=== PATIENT | male | born 1955 | race Caucasian/White ===

== ENCOUNTER 2019-08-19 07:00 | Outpatient (RCR) | payer SELFPAY | END 2020-04-05 14:23 | disposition home or self-care (01) | LOC: ANHCPRIII 07:00 | PROVIDERS: PCP Internal Medicine | DX: I25.10 Atherosclerotic heart disease of native coronary artery without angina pectoris (principal) | CPT/HCPCS: 99199 ==

== ENCOUNTER → 2021-10-23 11:49 | Outpatient (CLI) | payer MEDICARE, SELFPAY ==
--- NOTE | ~2021-10-23 | XR_ITS ---
EXAMINATION:XR_[id number]_CR DATE: 10/23/2021 12:06 INDICATION: Neck pain TECHNIQUE: AP, lateral, lateral swimmers and odontoid views of the cervical spine are provided. COMPARISON: None FINDINGS: There are 2 mm of retrolisthesis of C3 on C4. Vertebral body alignment is otherwise normal. The odontoid is intact. No fracture is identified. There is severe loss of intervertebral disc space height at C5-6 and moderate loss of intervertebral disc space height at C3-4 and C6-7. Small degener ative osteophytes project from the anterior endplates of multiple vertebral bodies. 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 Prevertebral soft tissues are normal. IMPRESSION: 1. Severe cervical spondylosis at C5-6 and mild to moderate spondylosis in the remainder of the cervi kb spine Reviewed, dictated and finalized at location F. IMPRESSION: 1. Severe cervical spondylosis at C5-6 and mild to moderate spondylosis in the remainder of the cervical spine
== END ==
PROVIDERS: PCP Internal Medicine; Visit Provider Nurse Practitioner
DX: M47.892 Other spondylosis, cervical region (principal)
CPT/HCPCS: 72040

== ENCOUNTER → 2021-10-31 16:44 | Outpatient (CLI) | payer MEDICARE, SELFPAY ==
--- NOTE | ~2021-10-31 | MR_ITS ---
EXAMINATION: MR cervical spine wo con DATE: 10/31/2021 17:19 INDICATION: Posterior neck pain. Other specified dorsopathies, cervical region. TECHNIQUE: Magnetic resonance imaging (MRI) of the cervical spine was performed without intravenous c ontrast. Sequences included sagittal T2-weighted FSE, sagittal T2-weighted FS FSE, sagittal T1-weight ed FSE, axial MERGE, and axial T2-weighted FSE. COMPARISON: Cervical spine radiographs 10/23/2021 FINDINGS: There is 2 mm retrolisthesis of C3 on C4 and C5 on C6. There is mild chronic anterior wedgi ng of C3, C5, and C6 vertebral bodies. There is severely decreased disc height at C3-C4, mildly decre ased disc height at C4-C5, and severely decreased disc height at C5-C6 and C6-C7 with endplate remode ling. The spinal cord signal intensity is normal. The following disc levels are specifically discusse d: C2-C3: The disc does not extend beyond the endplate margin. There is mild left uncovertebral joint os teoarthritis. There is severe right and mild left facet joint osteoarthritis. There is mild right noemi ral foraminal stenosis. There is no central canal stenosis. C3-C4: The disc is bulging. Severe bilateral There is no uncovertebral joint osteoarthritis. There is mild bilateral facet joint osteoarthritis. There is moderate bilateral neural foraminal stenosis. Th ere is moderate central canal stenosis with ventral and dorsal indentation of spinal cord. C4-C5: The disc does not extend beyond the endplate margin. There is moderate bilateral uncovertebral joint osteoarthritis. There is mild bilateral facet joint osteoarthritis. There is no neural foramin al stenosis. There is no central canal stenosis. C5-C6: The disc is bulging. There is ankylosis of the uncovertebral joints with severe hypertrophy. T here is no facet joint osteoarthritis. There is moderate bilateral neural foraminal stenosis. There i s moderate central canal stenosis with ventral and dorsal indentation of spinal cord. C6-C7: The disc is bulging. There is moderate right and severe left uncovertebral joint osteoarthriti s. There is mild bilateral facet joint osteoarthritis. There is moderate right and severe left neural foraminal stenosis. There is moderate central canal stenosis with ventral and dorsal indentation of spinal cord. C7-T1: There is a central extrusion. There is no uncovertebral joint osteoarthritis. There is severe right and moderate left facet joint osteoarthritis. There is mild bilateral neural foraminal stenosis . There is mild central canal stenosis. IMPRESSION: 1. Severe cervical spondylosis. Reviewed, dictated and finalized at location A.
== END ==
PROVIDERS: PCP Internal Medicine; Visit Provider Internal Medicine
DX: M53.82 Other specified dorsopathies, cervical region (principal); M47.892 Other spondylosis, cervical region
CPT/HCPCS: 72141

== ENCOUNTER → 2023-07-23 10:45 | Outpatient (CLI) | payer MEDICARE, SELFPAY ==
--- NOTE | ~2023-07-23 | XR_ITS ---
Left Knee Technique: AP, lateral, and sunrise views were obtained. Clinical History: Pain Findings: No fracture or dislocation is seen. Osseous alignment is anatomic. Joint spaces are preserv ed without degenerative or erosive change. Soft tissues are unremarkable. No joint effusion is seen. Impression: Unremarkable left knee radiographs. Reviewed, dictated and finalized at location . TH UNIT SUPERVISOR Impression: Unremarkable left knee radiographs.
== END ==
PROVIDERS: PCP Nurse Practitioner Family; Visit Provider Nurse Practitioner Family
DX: M25.562 Pain in left knee (principal)
CPT/HCPCS: 73564

== ENCOUNTER → 2023-08-12 10:58 | Outpatient (CLI) | payer MEDICARE, SELFPAY ==
--- NOTE | ~2023-08-12 | MR_ITS ---
MRI of the left knee Clinical history: Pain Technique: Coronal proton density and proton density-weighted images, sagittal proton-density and T2 fat-sat images, and axial proton-density fat-saturated images were acquired. Findings: Anterior and posterior cruciate ligaments are intact. Medial collateral ligament and the la teral collateral ligament complex are intact. Popliteus tendon is intact. No lateral meniscal tear seen. There is complex tearing of the posterior horn of the medial meniscus extending to the body segment. There is patchy high-grade chondral malacia, especially at the apex, with mild subchondral reactive m arrow edema. There is extensive high-grade chondral malacia the femoral trochlea, with subchondral re active marrow edema at the lateral facet. There is mild chondral thinning in the medial lateral doc rtments. Extensor mechanism is intact. Small to moderate joint effusion present. No Oh's cyst. Impression: Complex tearing of the posterior horn and body of the medial meniscus. Moderate degenerative change of the patellofemoral compartment. Mild degenerative change of the media l and lateral compartments. Small to moderate joint effusion. Reviewed, dictated and finalized at location M. SERVICE TECHNICIAN Impression: Complex tearing of the posterior horn and body of the medial meniscus. Moderate degenerative change of the patellofemoral compartment. Mild degenerati ve change of the medial and lateral compartments. Small to moderate joint effusion.
== END ==
PROVIDERS: PCP Nurse Practitioner Family; Visit Provider Nurse Practitioner Family
DX: S83.232A Complex tear of medial meniscus, current injury, left knee, initial encounter (principal); X58.XXXA Exposure to other specified factors, initial encounter; M17.12 Unilateral primary osteoarthritis, left knee; M25.462 Effusion, left knee
CPT/HCPCS: 73721

== ENCOUNTER 2023-09-22 14:30 | Outpatient (RCR) | payer MEDICARE, SELFPAY ==
--- NOTE | 2023-08-26 17:27 | OPREHPOC ---
Outpatient Therapy Plan of Care This is a Multidisciplinary Plan of Care that may contain components documented by all disciplines (PT, OT, and ST.) PT Problem 1 PT Problem #1 Knowledge Deficit PT Goal 1 Goal Pt to be IND with issued HEP Target Visit 10 PT Problem 2 PT Problem #2 Pain PT Goal 1 Goal Pt to report knee pain no greater than 3/10 in the last week. Target Visit 10 PT Goal 2 Goal Pt to report 75% improvement in overall symptoms. Target Visit 10 PT Problem 3 PT Problem #3 Impaired Gait PT Goal 1 Goal Pt to ambulate without compensations on level ground Target Visit 10 PT Goal 2 Goal Pt to improve 2 min walk distance from 405ft to 450ft Target Visit 10 PT Problem 4 PT Problem #4 Impaired Functional Mobil PT Goal 1 Goal Pt to demonstrate a 20lb lift and carry without compensations Target Visit 10 PT Goal 2 Goal Pt to ambulate stairs with a reciprocal pattern Target Visit 10
--- NOTE | 2023-08-26 17:27 | PTOPEVAL1 ---
Assessment and note entered by Kiran Case, PT, DPT Evaluation Information Assessment Status Evaluation Diagnosis L knee pain Subjective Information Pt reports L knee pain, MRI showing a positive L medial meniscus tear. He states he has had pain since April, he states this is likely from the [employer] class he does. He states his knee initially got better to where he could return to his 30 min walk he is used to doing. He states in June he was doing work in the basement and had to go up/down stairs multiple times and this has reaggrivated it. He states he is very cautious and avoid movements that cause pain. Reported Pain Level Pain Score 1: Self Report Assessment PT Clinical Summary Jose presents to therapy today for his initial evaluation with a diagnosis of L patellofemoral pain and an MRI showing a L knee medial meniscus tear. Today pt demonstrates decreased L quad strength when compared to the R, gait deviations on level surfaces and stairs, L knee joint line tenderness, and overall decreased functional mobility. Skilled therapy services are indicated to address the deficits noted above, to manage pain, to improve stability, and to return to PLOF. Plan of Care Interventions Electrical Stimulation,Gait Training,Hot Pack/Cold Pack,Manual Therapy,Neuro Re-education,Patient/ Caregiver Educati,Therapeutic Activities, Therapeutic Exercise PT Services Indicated Yes Treatment Frequency and 2x/wk for 10 visits Duration These treatments will address the objective and functional deficits as defined above. The patient will be advanced safely and appropriately in order for the patient to progress towards his/her prior level of function. Additional exercises will be introduced and as well as a comprehensive home exercise program upon discharge, if needed, ?to ensure carryover of functional gains achieved in the clinic. This treatment plan has been reviewed and agreement upon by the patient.
--- NOTE | 2023-09-17 13:22 | PCPTNOTE ---
Patient canceled this date due to provider being out with sick child.
--- NOTE | 2023-09-22 16:51 | PTOPDC ---
Assessment and note entered by Kiran Case, PT, DPT Evaluation Information Assessment Status Discharge Diagnosis L knee pain Subjective Information Pt states he feels like he is making a lit bit of progress. He states at times he can walk without pain, but other times he cannot. He states he is sore after doing his exercises but is still doing them. He rides his bike for 30 mins daily. He states he still cannot climb stairs, squatting, getting dressed and putting his shoes on is also still uncomfortable. Reported Pain Level Pain Score 1: Self Report Assessment PT Clinical Summary Jose presents to therapy today for his progress report following 8 visits of skilled therapy to treat his diagnosis of L patellofemoral pain and an MRI showing a L knee medial meniscus tear. Today pt demonstrates improved LE strength, improved stability, and improved pain reports. He demonstrates good progress towards his therapy goals and plans to continue his HEP on his own and follow up with ortho as needed. Plan of Care PT Services Indicated No
== END 2023-09-23 11:25 | disposition home or self-care (01) ==
LOC: ANHGOSHPT 14:30
PROVIDERS: PCP Nurse Practitioner Family; Visit Provider Nurse Practitioner Family
DX: S83.249D Other tear of medial meniscus, current injury, unspecified knee, subsequent encounter (principal); M22.2X2 Patellofemoral disorders, left knee
CPT/HCPCS: 97016; 97110; 97161; 97530

== ENCOUNTER 2024-12-19 04:35 | Emergency (ER) | payer MEDICARE, SELFPAY ==
[2024-12-19] VITALS (22 sets, daily range): BP systolic 154–207; BP diastolic 84–103; PULSE 44–63; RESP 8–22; TEMP 36.6; O2SAT 97–100
--- NOTE | ~2024-12-19 | XR_ITS ---
Portable chest x-ray Comparison: 07/16/2024 Clinical History: Chest pain, altered mental status Findings: Lungs are clear, without focal consolidation or pleural effusion. Cardiomediastinal silho uette is stable. Bones and soft tissues are unremarkable. Impression: Clear lungs. Reviewed, dictated and finalized at location . Impression: Clear lungs.
--- NOTE | ~2024-12-19 | CT_ITS ---
Non-contrast Head CT History: Altered mental status Technique: Axial non-contrast imaging of the brain was performed. Dose reduction technique was used on this scan by utilizing automated exposure control and iterative reconstruction technique. The dose -length product (DLP) was 605.33 mGy-cm. Findings: There is no evidence of intracranial hemorrhage, mass lesion, or acute infarct. Brain par enchyma appears normal. The ventricles and subarachnoid spaces are normal in size. The calvarium ap pears normal. The visualized paranasal sinuses and mastoid air cells are clear. Impression: No significant abnormality seen. Reviewed, dictated and finalized at location . Impression: No significant abnormality seen.
--- NOTE | 2024-12-19 04:41 | ECG_ITS ---
Test Date: 2024-12-19 04:44:32 Measurements Intervals Ignacio Rate: 49 P: 46 GA: 214 QRS: 18 QRSD: 110 T: 28 QT: 428 QTc: 387 Interpretive Statements SINUS BRADYCARDIA WITH FIRST DEGREE AV BLOCK WITH OCCASIONAL SUPRAVENTRICULAR PREMATURE COMPLEXES ABNORMAL ECG No previous ECG available for comparison Electronically Signed On 12-19-2024 07:10:31 CDT by Jimy Vogel D.O.
[2024-12-19 05:13] LABS: Basophils Percent Auto 0.5 % (0.2-1.2); Eosinophils Absolute Auto 0.2 K/mm3 (0-0.3); Eosinophils Percent Auto 4.1 % (0-4.4); Hematocrit 45.2 % (42.0-52.0); Hemoglobin 14.4 g/dL (14.0-18.0); Immature Granulocyte Absolute 0.02 K/mm3 (0.00-0.031); Immature Granulocyte Percent A 0.4 % (0-0.5); Lymphocytes Absolute Auto 1.12 K/mm3 (0.9-3.2); Lymphocytes Percent Auto 19.8 % (18.3-44.2); Mean Corpuscular HGB Conc 31.9 g/dl (32-36); Mean Corpuscular Hemoglobin 28.3 pg (26-34); Mean Platelet Volume 10.6 fl (7.4-10.4); Monocytes Absolute Auto 0.3 K/mm3 (0.1-0.6); Neutrophils Absolute Auto 3.9 K/mm3 (1.3-6.7); Neutrophils Percent Auto 69.2 % (45.5-73.1); Platelet Count Result 155 k/mm3 (150-375); Red Blood Count 5.08 M/mm3 (4.6-6.20); Red Cell Distribution Width 13.4 % (11.5-14.5); White Blood Count 5.7 K/mm3 (4.5-10.0)
[2024-12-19 05:22] LABS: Lactic Acid Reflex 0.8 mmol/L (0.7-2.0)
[2024-12-19 05:23] LABS: Alanine Aminotransferase 32 U/L (6-50); Alkaline Phosphatase 82 U/L (38-126); Anion Gap 6 mmol/L (4-12); Aspartate Amino Transferase 38 U/L (17-59); Bilirubin,Total 0.7 mg/dL (0.2-1.3); Blood Urea Nitrogen 18 mg/dL (9-20); Calcium 9.3 mg/dL (8.4-10.2); Carbon Dioxide 28 mmol/L (22-30); Chloride 106 mmol/L (98-107); Estimated CRCL calculation 74 ml/min; Estimated Glomerular Filt Rate > 60; Glucose 111 mg/dL (65-110); Potassium 3.7 mmol/L (3.4-5.0); Sodium 140 mmol/L (137-145)
[2024-12-19 05:25] LABS: Partial Thromboplastin Time 30.1 Seconds (22.3-36.8); Prothrombin Time 13.7 Seconds (11.1-14.7)
[2024-12-19 05:36] LABS: Troponin I < 0.012 ng/mL (0.000-0.034)
[2024-12-19 06:34] LABS: Add Urine Microscopic? NO; Appearance Urine Clear (Clear); Bilirubin Urine Negative (Negative); Blood Urine Negative (Negative); Color Urine Yellow (Yellow); Glucose Urine UA Negative (Negative); Ketones Urine Negative (Negative); Leukocyte Esterase Ur Negative LEU/UL (Negative); Nitrate Urine Negative (Negative); Protein Urine Negative (Negative); Specific Grav Ur 1.011 (1.001-1.035); Urobilinogen Urine 0.2 mg/dL (<2.0); pH Urine 5.5 (5.0-9.0)
--- NOTE | 2024-12-19 07:10 | ED_ITS ---
HPI - Altered Mental Status General Chief Complaint: Altered Mental Status Stated Complaint: memory problems Time Seen by Provider: 12/19/24 07:08 Source: patient Mode of arrival: ambulatory Limitations: no limitations History of Present Illness HPI narrative: Patient presents with report of altered mental status and angina. He notes that he has memory problems at baseline due to history of global amnesia multiple times. Follows with a neurologist though has not had MRI. He also has a history of angina and for this he follows with his planting material unloader Dr Pate through [facility]. He notes that he has a history of coronary artery blockage although had declined proceeding with any cardiac catheterization. He had an echo performed in December of 2023 but his last stress test was approximately 10 years ago. Patient notes that he had what felt like angina last night between 8 and 9:00 p.m. although was different because usually this pain occurs in the setting of exercise and resolves with rest but last night it occurred while he was at working on his computer. He took nitroglycerin which helped. He also reports feeling confused and disoriented. Last known well 20:00. He states that he does have some chronic dizziness at baseline. He states when he turns his head a certain way this stops. No fevers or chills. No shortness of breath, cough, nausea, vomiting. No vision changes (blurred or double). Pain was across his chest but otherwise not radiating to jaw/shoulders/arms/back. No slurred speech, facial drooping, or unilateral symptoms. Has a dry mouth, possibly due to oxybutynin. Denies any edema. He is on clopidogrel. He had reported feeling down and sad but denied SI/HI. Thinks he is stressed. Took 1/2 an Ativan last night because anxious. When asked in what way he was confused, he states that he didn't know things that should be famliar, for example where his socks and underwear were. Cardiac risk factors HTN: Yes HLD: Yes DM: No (prediabetes) Obese: No Smoker: No Personal history SC/TIA/CVA: No Fam Hx SC in first degree relative <65yo: Yes (dad bypass and mother ) Related Data Home Medications ?Medication ?Instructions ?Recorded ?Confirmed ?Last Taken ?Type aspirin 81 mg tablet,delayed 81 mg PO DAILY 05/12/19 10/08/23 Unknown History release (Adult Aspirin Regimen) isosorbide mononitrate 30 mg 30 mg PO DAILY 05/12/19 10/08/23 Unknown History tablet,extended release 24 hr metoprolol succinate 50 mg 50 mg PO DAILY 05/12/19 10/08/23 Unknown History tablet,extended release 24 hr nitroglycerin 0.4 mg sublingual 0.4 mg sublingual Q5M PRN 05/12/19 10/08/23 Unknown History tablet (Nitrostat) cholecalciferol (vitamin D3) 50 50 mcg PO DAILY 09/30/23 10/08/23 Unknown History mcg (2,000 unit) capsule coenzyme Q10 100 mg capsule 200 mg PO DAILY 09/30/23 10/08/23 Unknown History (CoQ-10) lutein 20 mg capsule 20 mg PO DAILY 09/30/23 10/08/23 Unknown History timolol 0.5 % eye drops 1 drp EACH EYE DAILY 09/30/23 10/08/23 Unknown History Allergies Allergy/AdvReac Type Severity Reaction Status Date / Time tadalafil Allergy Severe Visual Verified 12/19/24 08:49 side effects SHAWNA Inhibitors Allergy Unknown Cough Verified 12/19/24 04:50 hydrocodone Allergy Unknown Spider Verified 12/19/24 04:50 webs on face PMFSH Past Medical History Medical History (Updated 12/21/24 @ 10:06 by Gladis Hercules MD) Global amnesia Chronic stable angina Blockage of coronary artery of heart Patellofemoral syndrome of left knee Medial meniscus tear Left knee pain Fatigue Prediabetes Spondylosis Ocular hypertension Chronic pain of both shoulders Essential (primary) hypertension Gastro-esophageal reflux disease without esophagitis Major depressive disorder, single episode, unspecified Blas's neuroma of left foot Surgical History Surgical History Hx of cholecystectomy H/O hernia repair Family History Family History Mother Family history of coronary artery disease Hypertension Father No family history of cardiovascular disease Sibling No family history of cardiovascular disease Other Diabetes mellitus Family history of congenital heart disease Social History Social History Smoking packs per day: 1.5 Smoking cigarettes per day: 30.0 Years smoked: 14 Smoking pack-years: 21.00 Smoking status: Never smoker Second hand tobacco smoke exposure: No Smoking end date: 06/29/86 Alcohol intake: former Substance use: never Substance use type: does not use Lack of Transportation: No Lack of Food: Never True Current Housing: I Have Housing Concerned About Future Housing: No Difficulty Paying Gas/Electric Bills: No Difficulty Paying for Meds: No Currently Unemployed: No Education: Master's Degree or Higher Living arrangements: with family Occupation/Education: retired Sexual Orientation (if Verbalized by the Patient): Straight or Heterosexual Exam 2 Narrative: GENERAL: Well-appearing, well-nourished, and in no acute distress. HEAD: Normocephalic, atraumatic. EYES: Non injected, non icteric ENT: Nares clear, no rhinorrhea or epistaxis. Gross auditory acuity intact. NECK: Supple. No meningismus. CHEST: Speaking in full sentences. No respiratory distress. HEART: Bradycardic rate and rhythm. . ABDOMEN: Soft, nondistended. EXTREMITIES: Normal range of motion. No lower extremity edema. SKIN: Warm, dry, no rash. NEURO: No focal deficits. Alert and oriented. Answering questions. Following commands. Normal speech without aphasia or dysarthria. PSYCH: Congruent mood and affect. Course Vital Signs Vital signs: Vital Signs Temperature 97.8 F 12/19/24 04:45 Pulse Rate 57 L 12/19/24 04:45 Respiratory Rate 18 12/19/24 04:45 Blood Pressure 207/97 H 12/19/24 04:45 Pulse Oximetry 99 12/19/24 04:45 Oxygen Delivery Room Air 12/19/24 04:45 Temperature 97.8 F 12/19/24 04:45 Pulse Rate 59 L 12/19/24 09:51 Respiratory Rate 16 12/19/24 09:47 Blood Pressure 175/96 H 12/19/24 09:51 Pulse Oximetry 100 12/19/24 09:47 Oxygen Delivery Room Air 12/19/24 05:30 MDM - Altered Mental Status MDM Narrative Medical decision making narrative: Patient presents report confusion as well as angina. His last known well was at he p.m. last night. At baseline he reports a history of memory issues related to multiple episodes of global amnesia. In the emergency department he is afebrile with vital signs notable for mild bradycardia as well as significant hypertension. Patient's ortho stats are reviewed and heart rate appropriate; BP increases with positioning. In triage was felt to be slow to respond with difficulty word finding; while responses are slow on my exam, he does not appear confused but rather possibly natural andrea versus intentionallity with speech. Patient reports taking Ativan last night because he was anxious although no benzodiazepine on UDS. This might not have yet metabolized although could be explained either his confusion last night although, it seems that his confusion preceded this; however, if taken after he started having symptoms the way he presented in triage, though hard to say definitively. HEART SCORE History 2 highly suspicious 1 moderately suspicious 0 slightly suspicious History score [address] depression/elevation not due to LBBB, LVH, or digoxin [address] depression but LBBB, LVH, nonspecific repolarization changes 0 normal ECG score 0 Age 2 >/= 65 1 45-64 0 <45 Age score 2 Risk factors (HTN, hypercholesterolemia, DM, obesity with BMI >30, current smoker or cessation </=3mo), positive fam hx with parent or sibling with CVD before age 65, atherosclerotic disease (prior SC, PCI/CABG, CVA/TIA, or peripheral arterial disease) 2 >/= 3 risk factors or history of atherosclerotic dz 1 - 1-2 risk factors 0 no known risk factors Risk factor score 2 Initial Troponin 2 >3 times normal limit 1 1-3 times normal limit 0 less than or equal to normal limit Troponin score 0 Total HEART Score 5 Patient has chronically had angina but he notes that it had previously been stable and associated with exercise with resolution upon resting. This episode has been different as it occurred while he was at rest thus concerning for unstable angina. Nitroglycerin did help. Patient declining on CTA brain/carotid. Repeat troponin negative. Patient reports that he believes symptoms are due to stress, particularly the news which he finds very troubling regarding geopolitical events ([place], etc.). While these are strongly considered, he has risk factors and has not had a ischemic workup. He asked if I would be willing to consult with his planting material unloader. I did explain that I would be happy to speak with his planting material unloader if he got ahold of them and they were willing, but that I could not guarantee that Dr Pate would. It seems patient has been hesitant to proceed with definitive testing and/or intervention for various issues (Patient has history of memory issues but also has not undergone MRI. States he has a known history of coronary artery blockage(s) but has not had stress test or cardiac catheterization, etc.). Patient stating he can not stay here in the ED any longer ; he was offered observation admission and declined. Discussed HEART score and that he has a 12- 16% risk of MACE. Verifies understanding and would like to leave AMA (against medical advice). The patient is oriented to person, place, and time, has the capacity to make decisions regarding the medical care offered. The patient speaks coherently and exhibits no evidence of having an altered level of consciousness or alcohol or drug intoxication to a point that would impair judgment. Discussed risks and benefits and informed him he could return at any time. He was provided printed instructions. Differential Diagnosis Differential diagnosis: Likely alcoholic intoxication, altered mental status, delirium, dementia, hypoglycemia, hyponatremia, subarachnoid hemorrhage, sepsis and other (Hypertensive encephalopathy; PRES; TIA/CVA; ACS (spectrum of STEMI/NSTEMI/angina/unstable angina); aneurysm; mass) Lab Data Attestation: I reviewed the patient's lab results. 12/19/24 05:02 12/19/24 05:02 Labs: Lab Results 12/19/24 12/19/24 12/19/24 Range/Units 05:02 06:29 07:41 WBC 5.7 (4.5-10.0) K/mm3 RBC 5.08 (4.6-6.20) M/mm3 Hgb 14.4 (14.0-18.0) g/dL Hct 45.2 (42.0-52.0) % MCV 89.0 (80-100) fl MCH 28.3 (26-34) pg MCHC 31.9 L (32-36) g/dl RDW 13.4 (11.5-14.5) % Plt Count 155 (150-375) k/mm3 MPV 10.6 H (7.4-10.4) fl Immature Gran % (Auto) 0.4 (0-0.5) % Neut % (Auto) 69.2 (45.5-73.1) % Lymph % (Auto) 19.8 (18.3-44.2) % [place] % (Auto) 6.0 (2.6-8.5) % Eos % (Auto) 4.1 (0-4.4) % Baso % (Auto) 0.5 (0.2-1.2) % Lymph # (Auto) 1.12 (0.9-3.2) K/mm3 [place] # (Auto) 0.3 (0.1-0.6) K/mm3 Eos # (Auto) 0.2 (0-0.3) K/mm3 Baso # (Auto) 0.0 (0.0-0.1) K/mm3 Abs Immat Gran (auto) 0.02 (0.00-0.031) K/mm3 Absolute Neuts (auto) 3.9 (1.3-6.7) K/mm3 Absolute Nucleated RBC 0.000 (0.0-0.012) K/mm3 Nucleated RBC % 0.0 (0.0-0.2) % PT 13.7 (11.1-14.7) Seconds INR 1.0 APTT 30.1 (22.3-36.8) Seconds Sodium 140 (137-145) mmol/L Potassium 3.7 (3.4-5.0) mmol/L Chloride 106 (98-107) mmol/L Carbon Dioxide 28 (22-30) mmol/L Anion Gap 6 (4-12) mmol/L BUN 18 (9-20) mg/dL Creatinine 0.85 (0.7-1.3) mg/dL Estim Creat Clear Calc 74 ml/min Estimated GFR > 60 (59 - ) Glucose 111 H (65-110) mg/dL Lactic Acid 0.8 (0.7-2.0) mmol/L Calcium 9.3 (8.4-10.2) mg/dL Total Bilirubin 0.7 (0.2-1.3) mg/dL AST 38 (17-59) U/L ALT 32 (6-50) U/L Alkaline Phosphatase 82 (38-126) U/L Ammonia < 9 L (9-30) umol/L Total Creatine Kinase 325 H (55-170) U/L Troponin I < 0.012 < 0.012 (0.000-0.034) ng/mL NT-Pro-B Natriuret Pep 77 (19.9-100) pg/mL Total Protein 7.0 (6.3-8.2) g/dL Albumin 4.0 (3.5-5.1) g/dL TSH 1.940 (0.465-4.680) uIU/mL Urine Color Yellow (Yellow) Urine Appearance Clear (Clear) Urine pH 5.5 (5.0-9.0) Ur Specific [place] 1.011 (1.001-1.035) Urine Protein Negative (Negative) mg/dL Urine Glucose (UA) Negative (Negative) mg/dL Urine Ketones Negative (Negative) mg/dL Ur Blood (Man) Negative (Negative) Urine Nitrate Negative (Negative) Urine Bilirubin Negative (Negative) Urine Urobilinogen 0.2 (<2.0) mg/dL Leukocyte Esterase Rfl Negative (Negative) LÁZARO/UL Salicylates < 1.0 L (2-20) mg/dL Urine Opiates Screen Negative (Negative) Urine Methadone Screen Negative (Negative) Acetaminophen < 10 L (10-30) ug/mL Ur Barbiturates Screen Negative (Negative) Ur Phencyclidine Scrn Negative (Negative) Ur Amphetamine Screen Negative (Negative) U Benzodiazepines Scrn Negative (Negative) Urine Cocaine Screen Negative (Negative) U Cannabinoids Screen Negative (Negative) Ethyl Alcohol < 10 (<10) mg/dL Imaging Data Radiologist's impression: Impression: Clear lungs. Impression: No significant abnormality seen. ECG Data EKG #1: Attestation: I personally reviewed and interpreted this ECG as follows: ECG completion date: 12/19/24 ECG completion time: 04:44 Interpretation: Sinus bradycardia at a rate of 49 beats per minute. AK interval is prolonged at 214 milliseconds consistent with a first-degree AV block. Patient does have a supraventricular premature complex. QRS 110. QT/QTC 428/397. Good R-wave progression across the precordial leads. T-wave inversion in 3 but otherwise upright in normal in contiguous inferior leads 2 and AVF. No other T-wave inversions. EKG #2: Attestation: I personally reviewed and interpreted this ECG as follows: ECG completion date: 12/19/24 ECG completion time: 07:47 Interpretation: Sinus bradycardia at a rate of 46 beats per minute. AK interval 224 consistent with first-degree AV block. QRS 101. QT/QTC 448/408. Good R-wave progression across the precordial leads. T-wave inversion in 3 but otherwise upright in normal in contiguous inferior leads 2 and AVF. No other T-wave inversion. Discharge Plan Discharge Clinical Impression: Bradycardia, sinus, First degree atrioventricular block by electrocardiogram, Unstable angina, Episode of confusion Patient Disposition: Left Against Medical Advice Condition: Stable Additional Instructions: As we discussed, the recommendation was that you stay for further workup . Your choosing to leave. I recommend following up with your planting material unloader and your welcome to return to the emergency department at any time with any new, worsening, or recurring symptoms. Patient Language: Taiwanese Prescriptions: No Action aspirin [Adult Aspirin Regimen] 81 mg tablet,delayed release (DR/EC) 81 mg PO DAILY isosorbide mononitrate 30 mg tablet extended release 24 hr 30 mg PO DAILY metoprolol succinate 50 mg tablet extended release 24 hr 50 mg PO DAILY nitroglycerin [Nitrostat] 0.4 mg tablet, sublingual 0.4 mg SUBLINGUAL Q5M PRN coenzyme Q10 [CoQ-10] 100 mg capsule 200 mg PO DAILY lutein 20 mg capsule 20 mg PO DAILY Rx Instructions: give with meal/snack cholecalciferol (vitamin D3) 50 mcg (2,000 unit) capsule 50 mcg PO DAILY lorazepam 1 mg tablet 1 mg PO BID PRN (Reason: anxiety) Qty: 60 0RF timolol 0.5 % drops 1 drp EACH EYE DAILY mirabegron [Myrbetriq] 25 mg tablet extended release 24 hr See Rx Instructions .ROUTE .COMPLEX Qty: 90 1RF Dose Instruction: TAKE 1 TABLET BY MOUTH EVERY DAY FOR 4 WEEKS, THEN, INCREASE TO 2 TABLETS BY MOUTH EVERY DAY Rx Instructions: TAKE 1 TABLET BY MOUTH EVERY DAY FOR 4 WEEKS, THEN, INCREASE TO 2 TABLETS BY MOUTH EVERY DAY losartan 50 mg tablet 50 mg PO DAILY Qty: 90 1RF oxybutynin chloride 5 mg tablet extended release 24hr 5 mg PO DAILY Qty: 90 1RF atorvastatin 40 mg tablet 40 mg PO DAILY Qty: 90 1RF Follow-up/Referrals: Stef Hi MD [Primary Care Provider] - Time of Disposition: 11:09
--- NOTE | 2024-12-19 07:43 | ECG_ITS ---
Test Date: 2024-12-19 07:47:11 Measurements Intervals [place] Rate: 46 P: 34 DC: 224 QRS: 9 QRSD: 101 T: 17 QT: 448 QTc: 395 Interpretive Statements SINUS BRADYCARDIA WITH FIRST DEGREE AV BLOCK BASELINE ARTIFACT- I, II, AVR ABNORMAL ECG Compared to ECG 12/19/2024 04:44:32 No significant changes Electronically Signed On 12-19-2024 08:03:10 CDT by Jimy Vogel D.O.
[2024-12-19 08:00] LABS: Creatine Kinase 325 U/L (55-170)
[2024-12-19 08:10] LABS: NT Pro B Type Natriuretic Pept 77 pg/mL (19.9-100)
[2024-12-19 08:11] LABS: Acetaminophen < 10 ug/mL (10-30); Ammonia < 9 umol/L (9-30); Ethanol < 10 mg/dL (<10); Salicylate < 1.0 mg/dL (2-20)
[2024-12-19 08:16] LABS: Troponin I < 0.012 ng/mL (0.000-0.034)
[2024-12-19 09:37] LABS: Amphetamine Screen Urine Negative (Negative); Barbiturate Screen Urine Negative (Negative); Benzodiazepines Screen Urine Negative (Negative); Cannabinoid Screen Urine Negative (Negative); Cocaine Screen Urine Negative (Negative); Methadone Screen Urine Negative (Negative); Opiate Screen Urine Negative (Negative); Phencyclidine Screen Urine Negative (Negative)
== END 2024-12-19 11:42 | disposition left against medical advice (07) ==
PROVIDERS: Emergency Medicine; Emergency Provider Student in an Organized Health Care Education/Training Program; PCP Family Medicine
DX: R00.1 Bradycardia, unspecified (principal); I44.0 Atrioventricular block, first degree; I25.110 Atherosclerotic heart disease of native coronary artery with unstable angina pectoris; R41.0 Disorientation, unspecified; I10 Essential (primary) hypertension; E78.5 Hyperlipidemia, unspecified; R73.03 Prediabetes; Z82.49 Family history of ischemic heart disease and other diseases of the circulatory system; Z87.891 Personal history of nicotine dependence; Z53.29 Procedure and treatment not carried out because of patient's decision for other reasons; Z79.82 Long term (current) use of aspirin; Z79.899 Other long term (current) drug therapy
CPT/HCPCS: 36415; 70450; 71045; 80053; 80143; 80179; 80307; 81003; 82077; 82140; 82550; 83605; 83880; 84443; 84484; 85025; 85610; 85730; 93005; 99284

== ENCOUNTER 2025-03-16 20:03 | Inpatient (IN) | payer MEDICARE, SELFPAY ==
--- NOTE | ~2025-03-16 | US_ITS ---
Clinical History: Dizziness Examination: US carotid duplex BI Comparison: None Technique: Grayscale, color, duplex/spectral Doppler sonography carotid and vertebral arteries. Distal CCA and Peak ICA systolic velocities provided. Society of Radiologists in Ultrasound (SRU) consensus criteria utilized, indirectly assessing stenosis by velocities. Findings: Minimal plaque Right side: CCA - 68 cm/sec. ICA - 74 cm/sec. ICA/CCA - 1.1 Left Side: CCA - 59 cm/sec. ICA - 75 cm/sec. ICA/CCA - 1.3 Normal antegrade flow measured bilateral vertebral arteries. IMPRESSION: 1. No hemodynamically significant ICA stenosis (i.e., if any stenosis, less than 50%). 2. Normal bilateral antegrade vertebral artery flow. Stenosis measured by Society of Radiologists in Ultrasound (SRU) criteria. Reviewed, dictated and finalized at location R. IMPRESSION: 1. No hemodynamically significant ICA stenosis (i.e., if any stenosis, less th an 50%). 2. Normal bilateral antegrade vertebral artery flow. Stenosis measured by Society of Radiologists in Ultrasound (SRU) criteria.
--- NOTE | ~2025-03-16 | MR_ITS ---
EXAMINATION: MR brain/brain stem wo con DATE: 03/17/2025 12:00 INDICATION: Dizziness TECHNIQUE: Magnetic resonance imaging (MRI) of the brain and brainstem was performed without intravenous contrast. Sequences included sagittal and axial T1-weighted SE, axial diffusion-weighted FS SE, axial 3D SWAN, axial T2-weighted FLAIR, and axial T2-weighted FSE. Postcontrast axial and coronal T1-weighted SE was obtained. Apparent diffusion coefficient (ADC) maps were created. COMPARISON: Head CT dated 03/17/25 FINDINGS: There are no areas of restricted diffusion to suggest acute infarction. 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 No intracranial hemorrhage or abnormal intracranial mass lesion. There are no intraparenchymal signal abnormalities seen on the other pulse sequences. The ventricles are symmetric and normal in size. There are no abnormal extra-axial fluid collections. Flow voids are seen in the cerebral arteries on the T2-weighted sequences consistent with their expected patency. Mild mucosal thickening in the bilateral ethmoid and left maxillary sinuses. Changes of bilateral intraocular lens replacement. Visualized orbits and soft tissues are unremarkable. IMPRESSION: 1. 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 No acute intracranial process. Reviewed, dictated and finalized at location A. IMPRESSION: 1. 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 No acute intr acranial process.
--- NOTE | ~2025-03-16 | CT_ITS ---
EXAMINATION: CT brain wo con DATE: 03/17/2025 00:22 INDICATION: Dizziness. Loss of balance. TECHNIQUE: Computed tomography (CT) of the head was performed without intravenous contrast. The mA was adjusted according to patient size. Iterative reconstruction technique was employed. The dose-length product was 681.00 mGy-cm. COMPARISON: Head CT 12/19/2024 FINDINGS: There is no intracranial hemorrhage, acute infarction, or abnormal intracranial mass lesion. There are scattered areas of low attenuation in the cerebral white matter, which is within normal limits for the patient's age. The ventricles are normal in size. There are likely changes of ocular lens replacement surgeries. There is an old blowout fracture of medial wall of right orbit. There is mild mucosal thickening in the paranasal sinuses. The mastoid air cells are normal. IMPRESSION: 1. Normal aging brain. Reviewed, dictated and finalized at location E. IMPRESSION: 1. Normal aging brain.
--- NOTE | ~2025-03-16 | US_ITS ---
EXAMINATION: US venous doppler [facility], 03/19/2025 14:12 CDT HISTORY: ?DVT COMPARISON: None Technique: Jacobs-scale and color Doppler images were attempted of the lower saphenofemoral junction, common femoral vein,superficial femoral vein, proximal deep femoral vein, proximal deep femoral vein, popliteal vein and posterior tibial veins. Findings: Deep Venous System:Normal flow, augmentation and compressibility. No echogenic thrombus identified. Superficial Venous SystemNo superficial thrombophlebitis. Soft tissues: Within the soft tissues nonspecific echogenic subcutaneous focus in the left calf measures 1 x 0.5 cm possible subcutaneous lipoma, clinical correlation required, other etiologies not excluded, follow-up recommended to assess stability or resolution Impression: Negative for DVT. Reviewed, dictated and finalized at location A. Impression: Negative for DVT.
--- NOTE | ~2025-03-16 | XR_ITS ---
Examination: XR chest 2V Clinical History: Dizziness Comparison: 12/19/2024 Technique: PA and Lateral Findings: Cardiomediastinal silhouette normal size and configuration. Lungs clear. No acute bony abnormality. IMPRESSION: 1. No acute cardiopulmonary findings. Reviewed, dictated and finalized at location R.
--- OUTSIDE RECORDS SUMMARY | 2025-03-16 19:30 | XMS_ITS | Encounter Summary ---
Author Organization [facility] Healthcare Address [address] [place] [address] Care Team Providers Care Explosive Operator Fuse Name Role Phone Stef Hi MD Primary Care Provider [phone] Reason for Visit * Reason Comments Dizziness Dizziness and loss o f balance started at noon today worsened with head movement. Reports high BP today. Reports sciatic pain on L buttocks that is intense and keeps him from sleeping. Took ativan today at 2pm Encounter Details Date Type Department Care Team (Late st Contact Info) Description 03/16/2025 7:30 PM CDT Office Visit [facility] Medical [facility] at [address] [address] Bharati Chaudhary, SALES LEDGER CLERK [address] [place] [address] [address] [place] [address] Dizziness (Primary Dx); Unsteady gait; Elevated blood pressure reading Social History Tobacco Use Types Packs/Day Years Used Date Smoking Tobacco: Former Cigarettes 1.5 16 1 971 - 1987 Passive Smoke Exposure: Past Smokeless Tobacco: Never AUDIT-C Answer Date Recorded Q1: How often do you have a drink containing alc ohol? Never 02/10/2022 Average Number of Drinks Not on file 022 Q3: How often do you have si x or more drinks on one occasion? 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 Gender Identity Not on file Sexual Orientation Not on file documented as of this encounter Last Filed Vital Signs Vital Sign Reading Time Taken Comments Blood Pressure 150/88 03/16/2025 7:26 PM CDT Pulse 62 03/16/2025 7:26 PM CDT Temperature 36.6 C (97.9 F) 03/16/2025 7:26 PM CDT Respiratory Rate 16 03/16/2025 7:26 PM CDT Oxygen Saturation 98% 03/16/2025 7:26 PM CDT Inhaled Oxygen Concentration - - Weight 92.5 kg (204 lb) 03/16/2025 7:26 PM CDT p t reported Height - - Body Mass Index 28.45 06/20/2024 10:48 AM STAPLE CUTTER documented in this encounter Plan of Treatment Not on file documented as of this encounter Visit Diagnoses Diagnosis Dizziness- Primary Dizziness and giddiness Unsteady gait Abnormality of gait Elevated blood pressure reading Elevated blood pressure reading without diagnosis of hypertension documented in this encounter Care Teams Explosive Operator Fuse Relationship Specialty Start Date End Date Stef Hi MD PCP - General Family Practice 01/20/23 documented as of this encounter
--- OUTSIDE RECORDS SUMMARY | 2025-03-16 19:30 | XMS_ITS | Encounter Summary ---
Author Organization [facility] Healthcare Address [address] [place] [address] Care Team Providers Care Manager Ct Name Role Phone Stef Hi MD Primary Care Provider [phone] Reason for Visit * Reason Comments Dizziness Dizziness and loss o f balance started at noon today worsened with head movement. Reports high BP today. Reports sciatic pain on L buttocks that is intense and keeps him from sleeping. 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
--- OUTSIDE RECORDS SUMMARY | 2025-03-16 20:06 | XMS_ITS | Encounter Summary ---
Author Organization [facility] Address [address] [place] [address] Phone Care Team Providers Care Speech Communication Professor Name Role Phone Stef Hi MD Primary Care Provider [phone] Encounter Details Date Type Department Care Team (Late st Contact Info) Description 01/26/2025 Results Follow-Up 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 Mild AV sclerosis. Mild aortic root dilation reported at 4.2 cm and stable from last year. Continue current meds. Repeat echo in 1 year. documented in this encounter Plan of Treatment Not on file documented as of this encounter Visit Diagnoses Not on filedocumented in this encounter Care Teams Speech Communication Professor Relationship Specialty Start Date End Date Stef Hi MD PCP - General Family Practice 01/20/23 documented as of this encounter
--- OUTSIDE RECORDS SUMMARY | 2025-03-16 20:06 | XMS_ITS | Encounter Summary ---
Author Organization [facility] Address [address] [place] [address] Phone Care Team Providers Care Arboriculturist Name Role Phone Rolan Brar DO Primary Care Provider [phone] Stef Hi MD Primary Care Provider [phone] Encounter Details Date Type Department Care Team (Latest Contact Info) Description 04/10/2021 Orders Only [facility] Scanning, Provider Social History Tobacco Use Types Packs/Day Years Used Date Smoking Tobacco: Former Sex and Gender Information Value Date Recorded Sex Assigned at Not on file 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 Gender Identity Not on file Sexual Orientation Not on file documented as of this encounter Plan of Treatment Not on file documented as of this encounter Procedures Procedure Name Priority Date/Time Associated Diagnosis Comments SCAN - LABS 04/10/2021 documented in this encounter Results * SCAN - LABS (04/10/2021) us Provider Scanning Final Result documented in this encounter Visit Diagnoses Not on filedocumented in this encounter Care Teams Arboriculturist Relationship Specialty Start Date End Date Rolan Brar DO PCP - General 11/02/17 01/19/23 Stef Hi MD PCP - General Family Practice 01/20/23 documented as of this encounter
--- OUTSIDE RECORDS SUMMARY | 2025-03-16 20:06 | XMS_ITS | Encounter Summary ---
Author Organization [facility] Address [address] [place] [address] Phone Care Team Providers Care Animal Husbandry Technician Name Role Phone Zonia Rolan Primary Care Provider [phone] Stef Hi MD Primary Care Provider [phone] Encounter Details Date Type Department Care Team (Late st Contact Info) Description 11/01/2019 Telephone [facility] Cardiology [address] Advanced Medicine 8th [place] [address] [place] [id number] Maurisio Quevedo MD [address] [place] [address] Social History Tobacco Use Types Packs/Day Years Used Date Smoking Tobacco: Former Sex and Gender Information Value Date Recorded Sex Assigned at Not on file 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 Gender Identity Not on file Sexual Orientation Not on file documented as of this encounter Ordered Prescriptions Prescription Sig Dispense Quantity Refills Last Filled Start Date End Date isosorbide mononitrate ER (IMDUR) 30 mg 24 hr tablet Take 1 tablet (30 mg total) by mouth daily 90 tablet 1 11/01/2019 07/04/2020 documented in this encounter Plan of Treatment Not on file documented as of this encounter Visit Diagnoses Not on filedocumented in this encounter Discontinued Medications Medication Sig Discontinue Reason Start Date End Da te isosorbide mononitrate ER (IMDUR) 30 mg 24 hr tablet Take 1 tablet (30 mg total) by mouth daily Reorder 05/30/2019 11/01/2019 documented as of this encounter Care Teams Animal Husbandry Technician Relationship Specialty Start Date End Date Rolan Brar DO PCP - General 11/02/17 01/19/23 Stef Hi MD PCP - General Family Practice 01/20/23 documented as of this encounter
--- OUTSIDE RECORDS SUMMARY | 2025-03-16 20:06 | XMS_ITS | Encounter Summary ---
Author Organization [facility] Address [address] [place] [address] Phone Care Team Providers Care Senior Manufacturing Engineer Name Role Phone Rolan Brar DO Primary Care Provider [phone] Stef Hi MD Primary Care Provider [phone] Encounter Details Date Type Department Care Team (Latest Contact Info) Description 05/23/2022 Orders Only [facility] Scanning, Provider Social History Tobacco Use Types Packs/Day Years Used Date Smoking Tobacco: Former Cigarettes 1.5 16 1 971 - 1987 Smokeless Tobacco: Never AUDIT-C Answer Date Recorded Q1: How often do you have a drink containing alc ohol? Never 02/10/2022 Average Number of Drinks Not on file 022 Q3: How often do you have si x or more drinks on one occasion? 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 Gender Identity Not on file Sexual Orientation Not on file documented as of this encounter Plan of Treatment Not on file documented as of this encounter Procedures Procedure Name Priority Date/Time Associated Diagnosis Comments SCAN - LABS 05/23/2022 documented in this encounter Results * SCAN - LABS (05/23/2022) us Provider Scanning Final Result documented in this encounter Visit Diagnoses Not on filedocumented in this encounter Care Teams Senior Manufacturing Engineer Relationship Specialty Start Date End Date Rolan Brar DO PCP - General 11/02/17 01/19/23 Stef Hi MD PCP - General Family Practice 01/20/23 documented as of this encounter
--- OUTSIDE RECORDS SUMMARY | 2025-03-16 20:06 | XMS_ITS | Clinical Summary ---
Author Organization [facility] Address [address] [place] [address] Care Team Providers Care Line Servicer Name Role Phone Sherri Hi MD Primary Care Provider [phone] Allergies Active Allergy Reactions Criticality Noted Date Comments Gilberto Inhibitors Cough Low lisinopril Hydrocodone Itching Low Reaction: Itching, [place] like spider webs on face Medications atorvastatin (LIPITOR) 40 mg tabletIndicatio ns:hyperlipidem ia Take 1 tablet (40 mg total) by mouth every evening 3 04/03/20 18 Active coenzyme Q10 200 mg capsule Take 1 capsule (200 mg total) by mouth every morning Active LORazepam (ATIVAN) 1 mg tablet 1 tab every 4 hours as needed for anxiety 07/26/19 15 Active losartan (COZAAR) 50 mg tabletIndicatio ns:hypertension Take 1 tablet (50 mg total) by mouth every morning 0 04/03/20 18 Active multivitamin tabletIndicatio ns:Vitamin Deficiency Prevention,taki ng 4 times weekly Take 1 tablet by mouth every morning 4 times weekly Active cholecalciferol (VITAMIN D-3) 2000 unit capsule Take 1 capsule (2,000 Units total) by mouth 3 (three) times a week Three times weekly 07/26/19 15 Active UNABLE TO FIND Take 1 each by mouth every morning Med Name: beta sitosterol 115 mg daily in the morning Active lutein 20 mg tablet Take 20 mg by mouth every morning Active metoprolol XL (TOPROL-XL) 25 mg extended release tablet TAKE 1 TABLET(25 MG) BY MOUTH DAILY 90 tablet 3 07/01/19 25 Active isosorbide mononitrate ER (IMDUR) 30 mg 24 hr tablet TAKE 1 TABLET(30 MG) BY MOUTH DAILY 90 tablet 3 07/22/19 25 Active oxyBUTYnin (DITROPAN) 5 mg tablet Take 1 tablet (5 mg total) by mouth 3 (three) times a day Active nitroglycerin (NITROSTAT) 0.[address] 1 tablet (0.4 mg total) under the tongue every 5 (five) minutes as needed for chest pain May repeat dose up to three times, if chest pain persists after third dose, call 911. 25 tablet 3 12/23/19 25 Active timolol (TIMOPTIC) 0.5 % ophthalmic solutionIndicat ions:Glaucoma, residual angle-closure, bilateral INSTILL 1 DROP IN RIGHT EYE EVERY MORNING 5 mL 02/08/20 25 Active clopidogreL (PLAVIX) 75 mg tablet TAKE 1 TABLET(75 MG) BY MOUTH DAILY 90 tablet 3 03/07/20 25 Active clopidogreL (PLAVIX) 75 mg tablet Take 1 tablet (75 mg total) by mouth daily 30 tablet 11 10/26/19 24 025 Discontinued Active Problems Problem Noted Date Diagnosed Date Pseudophakia of both eyes 01/20/2023 Assessment & Plan (10/10/2024 1:39 PM CDT): BCVA mildly worse OD compared to previous visit Starting to have ADL issues OD > OS PCO OD > OS Educated and reassured patient of findings Will monitor 6 months at this time, if concerns prior back to for YAG eval Assessment & Plan (04/11/2024 2:14 PM CDT): Excellent vision sc OU Tr PCO OD > OS Doing well, monitor Assessment & Plan (11/09/2023 9:02 AM CDT): Excellent vision sc at distance No significant PCO OU Monitor Assessment & Plan (07/07/2023 3: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 Mcmullen on 12/18/21 here for floaters, pain, light sensitivity, and can see his lens moving around Glaucoma, residual angle-closure, bilateral 10/28 Overview (03/03/2023): Per previous [facility] note, start treatment if IOP > 18 OD, OK if low 20s OS given thick pachs Assessment & Plan (10/10/2024 1:38 PM CDT): IOP stable on lali 1/0 RNFL/OCT stable at this time 24-2 stable RTC 6 months with IOP / no DFE CPM: Timolol 1/0 Assessment & Plan (04/11/2024 2:14 PM CDT): IOP stable on timolol 1/0 Previous testing stable CPM: timolol 1/0 RTC 6 months with 24-2 / ONH OCT / IOP / DFE Assessment & Plan (11/09/2023 9:02 AM CDT): IOP stable today to previous, 18/16 on timolol 1/0 HVF stable to previous DFE today stable, NRR s hemes / notches OU Monitor closely, if >18 may need additional hypotensive RTC 5 months PRN with changes SRx released for computer/near CPM: Timolol qAM OD Assessment & Plan (07/07/2023 3:26 PM SUPERVISOR 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): IOP today generally stable from previous, some flucuation from visit to visit Today 18/16 Baseline cirrus OCT today with polar changes OD, full OS [place] OCT stable from previous DFE at f/u (poor weather today) Plan: Continue timolol qAM OD RTC 4 months for IOP check / 24-2 Assessment & Plan (03/03/2023 4:02 PM CDT): S/p CE/gonio OD, phace/CE for opening angle OS IOP today 16/18, good response from 1 class OD OCT with mild inferior changes OD, stable/WNL OS HVF with stable superior changes OD, full OS CPM: Timolol qAM OD RTC 4 months for IOP check / baseline zeiss ONH OCT Assessment & Plan (01/20/2023 1:54 PM CDT): S/P CE/gonio OD, phaco/CE for opening angle OS IOP today trending up OU 21/19 today, seems to be some variance from visit to visit Per previous [facility] note, start treatment if IOP > 18 OD, OK if low 20s OS given thick pachs Plan: Timolol qAM OD RTC 6 weeks for IOP / ONH OCT / 24-2 Assessment & Plan (07/22/2022 2:21 PM SUPERVISOR CONTACT LENS): S/P phaco nicolás OD, phaco OS for opening angle. IOP at goal with thick CCT off gtts. Follow Q6mo IOP check. If IOP od > 18 ok to start timolol QAM. For OS ok for IOP in low 20's. OK for SSRI use. Optometry 6 mo Assessment & Plan (04/17/2022 12:06 PM CDT): CEIOL OD 12/18/21 CEIOL OS 02/19/22 Add on for subjective visual field change. Discussed today: he noticed one pinpoint [place] spot that wiggles in central vision - sounds like vitreous clumping. He also noticed a subtle missing spot with OS; when he and I reviewed his full visual field test together he expressed that he might be noticing the natural/normal blind spot. Done with prednisolone taper. Not on latanoprost. IOP stable both eyes. HVF 24-2 today stable both eyes and full left eye. Return: Benedict in 3 months Assessment & Plan (03/25/2022 3:05 PM CDT): CEIOL OD 12/18/2021 CEIOL OS 02/19/2022 POM#1 CE/PCIOL OS Doing well, patient happy with vision finish pred forte taper Reviewed signs/symptoms endophthalmitis, RT/RD; patient to call immediately if any worsening vision, pain, redness, flashes/floaters/curtains. Released SRx today Finishing PF today, OK to stop latanoprost once finished with taper per Dr. Mcmullen RTC [address] Mcmullen Assessment & Plan (02/25/2022 2:20 PM CDT): CEIOL OD 12/18/2021 CEIOL OS 02/19/2022 POW #1 s/p CE/PCIOL OS Doing well D/C ofloxacin in 1 week Taper prednisolone QID -> TID -> BID -> qday, per week Continue latanaprost at bedtime (qhs) Reviewed signs/symptoms endophthalmitis, RT/RD; patient to call immediately if any worsening vision, pain, redness, flashes/floaters/curtains. Avoid lifting/bending/swimming for one more week. Protective eyewear during day. Okay to discontinue Schultz shield at night. RTC 1 month for DFEx, MRx OK to stop latanoprost after steroid taper RTC with me 4 weeks for IOP / MRx, then back to Dr. Mcmullen 3 months Assessment & Plan (02/20/2022 11:08 AM CDT): CEIOL OD 12/18/21 CEIOL OS 02/19/22 POD1 Extraction Cataract - Phacoemulsification And Lens Implant - Left Postoperative instructions were given. The patient is to use: moxifloxacin QID X 1 week Prednisolone Acetate 1% QID Patient is to wear the shield at bedtime X 1 week. Signs, symptoms of retinal detachment, tear, hole, and endophthalmitis were reviewed and the patient is to call immediately for concerns. We discussed that things should improve until they stabilize. Should there be any worsening of pain, vision, or redness the patient is to call. Followup 1 week or sooner prn issues. Start Xal Qhs OS After next week can taper pred then also D/C Latanoprost once off steroids and check MRx Return to me for IOP check in 3 mo after MRx - will recheck gonio to ensure open. Assessment & Plan (12/26/2021 11:28 AM CDT): POD1 Extraction Cataract - Phacoemulsification And Lens Implant - Right and Goniotomy - Right 12/18/21 - happy with vision - wants progressive glasses for dist/near correction - ok with temporal dysphotopsia Postoperative instructions were given. The patient is to use: Stop Moxifloxacin Prednisolone Acetate 1% 4-3-2-1 Continue cosopt 0/2 Signs, symptoms of retinal detachment, tear, hole, and endophthalmitis were reviewed and the patient is to call immediately for concerns. We discussed that things should improve until they stabilize. Should there be any worsening of pain, vision, or redness the patient is to call. Other eye: phaco/iol/goniotomy left eye (OS) - monofocal plano Pt would like progressive lenses with wide corridor after second eye surgery Assessment & Plan (12/20/2021 2:09 PM CDT): Post op s/p CEIOL/goniotomy OD on 12/18/21 Add on for dark crescent shaped wedge temporal which he notices in certain gaze position OD and does not move. Also with FBS and light sensitivity. Today 12/20/21 VA OD 20/30 and OS IOP OD 11 / IOP OS Exam with PCIOL in good position, mild cell/flare, no vitreous cell, no RT/RD on dilated exam. Discussed findings with patient, takes some time to recover from inflammation from surgery, continue PF/moxi and shake PF well to help with inflammation. Discussed negative dysphotopsias with patient, lens in good position, no sign of RT/RD on dilated eye exam. Counseled that in majority of patients this resolves over several months after surgery however if persistent for long period of time and bothersome could consider lens exchange. RTC 12/[address] Souza. Discussed strict return precautions for any worsening vision, redness, pain, FOL/floaters/curtain. Assessment & Plan (12/19/2021 12:22 PM CDT): POD1 Extraction Cataract - Phacoemulsification And Lens Implant - Right and Goniotomy - Right 12/18/21 - happy with vision Postoperative instructions were given. The patient is to use: ofloxacin QID X 1 week Prednisolone Acetate 1% QID Patient is to wear the shield at bedtime X 1 week. Signs, symptoms of retinal detachment, tear, hole, and endophthalmitis were reviewed and the patient is to call immediately for concerns. We discussed that things should improve until they stabilize. Should there be any worsening of pain, vision, or redness the patient is to call. Followup 1 week or sooner for concerns. Assessment & Plan (11/19/2021 9:59 AM CDT): IOP too high, s/p retinal laser OD? No view of this. Thick CCT, HVF with dense loss OD, OS still full. Since med dependant, rec TM procedure OS as well. Do not rec LPI Start cosopt BID OU We discussed that lens-based surgery is not for visual improvement as much as it is to open the angle and prevent blindness from glaucoma. We discussed all viable surgical options including MIGS, lasers, and more invasive incisional surgeries. When taking a stepwise approach to glaucoma, the patient understands that the surgery is not curative and we may need to perform additional glaucoma surgery in the future. The patient understands the risks, benefits, alternatives and wishes to proceed with cataract surgery. We discussed the target and the patient elects target plano. We discussed toric and multifocal lens options as well as laser assisted wounds however I prefer a manual technique here. The patient understands glasses are a possibility and is comfortable proceeding with a monofocal lens. IOLM Book Phaco/IOL/goniotomy right eye. OS to follow 4-6 weeks later. Coronary artery disease invo [place]ving [place] coronary artery of [place] heart without angina pectoris 10/15/2020 Increased body mass index (BMI) 11/26/2016 Benign essential hypertension 12/25/2015 Hyperlipidemia LDL goal <70 12/25/2015 Coronary artery disease invo lving [place] coronary artery of [place] heart with angina pectoris 02/09/2015 Obesity with body mass index 30 or greater 07/26 Cardiomyopathy 07/26/2014 Resolved Problems Problem Noted Date Diagnosed Date Resolved Date Nuclear sclerotic cataract of right eye 12/04/2021 02/19/2022 Overview (12/04/2021): Added automatically from request for surgery [id number] (nuclear sclerosis), left 11/19/2021 01/20/2023 Assessment & Plan (01/28/2022 11:17 AM CDT): Pt returned to discuss surgery OS. He would prefer to proceed with phaco alone. OD cleft is open but recently stopped steroids. IOP still elevated but will wait for steroids to wash out. Pt would prefer to proceed with phaco alone - no goniotomy. Pt understands risk of IOP spike and potential for additional surgery. Proceed with OS phaco/IOL plano monofocal. Encounters Date Type Department Care Team Description 03/16/2025 7:30 PM CDT Office Visit [facility] at [address] [address] Bharati Chaudhary NP Dizziness (Primary Dx); Unsteady gait; Elevated blood pressure reading 01/26/2025 Orders Only [facility] [address] [place] [address] [place] [address] Sherri Pham MD Aortic root dilation (Primary Dx); Aortic valve sclerosis 01/26/2025 Results Follow-Up [facility] [address] [place] [address] [place] [address] Sherri Pham MD Transthoracic Echo (TTE) Complete W Doppler/CF 01/24/2025 1:30 PM CDT Ancillary Procedure [facility] [address] [facility] [address] [place] [address] Aortic root dilation from Last 3 Months Surgical History Surgery Date Site/Laterality Comments EYE SURGERY 06/29/2016 - 06/28/2017 Right Laser Procedure CHOLECYSTECTOMY 06/29/2007 - 06/28/2008 CATARACT EXTRACTION W/ INTRAOCULAR LENS IMPLANT 12/18/2021 Right w/Nicolásio-Dr. Mcmullen COLONOSCOPY HERNIA REPAIR 06/29/2007 - 06/28/2008 HAND SURGERY 06/29/2011 - 06/28/2012 Left trigger finger CATARACT EXTRACTION W/ INTRAOCULAR LENS IMPLANT 02/19/2022 Left Multifocal Medical History Medical History Date Comments Cataract HTN (hypertension) HLD (hyperlipidemia) Cardiomyopathy CAD (coronary artery disease) Sleep apnea Family History Medical History Relation Name Comments Coronary artery disease Father Fami ly history of coronary artery disease - (Added by TW Conv) Diabetes Father Family history of diabetes mellitus - (Added by TW Conv) Coronary artery disease Mother Fami ly history of coronary artery disease - (Added by TW Conv) Heart attack Mother Family history of heart attack - (Added by TW Conv) Hypertension Mother Family history of hypertension - (Added by TW Conv) Stroke Mother Family history of stroke - (Added by TW Conv) Coronary artery disease Sister Fami ly history of coronary artery disease - (Added by TW Conv) Anesthesia problems Neg Hx Relation Name Status Comments Father Mother Sister Social History Tobacco Use Types Packs/Day Years Used Date Smoking Tobacco: Former Cigarettes 1.5 16 1 - 1986 Passive Smoke Exposure: Past Smokeless Tobacco: Never Tobacco Cessation:Counseling Given: Not Answered AUDIT-C Answer Date Recorded Q1: How often do you have a drink containing alc ohol? Never 02/10/2022 Average Number of Drinks Not on file 022 Q3: How often do you have si x or more drinks on one occasion? 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 Gender Identity Not on file Sexual Orientation Not on file Obstetrics History Last Filed Vital Signs Vital Sign Reading [...] 7:26 PM CDT p t reported Height 180.3 cm (5' 11) 06/20/2024 10:48 AM SUPERVISOR CONTACT [employer]ENS Body Mass Index 28.45 06/20/2024 10:48 AM SUPERVISOR CONTACT [employer]ENS Plan of Treatment Health Maintenance Due Date Last Done Comments Colon Cancer Screening-Colonoscopy 1955 Depression Screening 1955 Hepatitis C Screening 1955 DTaP/Tdap/Td Vaccine (1 - Tdap) 02/09/1964 Hepatitis B Screening 1971 Zoster Vaccine (2 of 3) 06/22/2015 04/27/2015 Abdominal Aortic Aneurysm (A AA) Screen 2018 Well Visit 65+ 2018 Fall Risk Assessment 02/19/2023 02/19/2022 Covid-19 Vaccine (5 - 2024-2 6 season) 2025 10/23/2021, 03/28/2021, 09/11/2020, Additional history exists Influenza Vaccine (#1) 2025 , 06/29/2021, 04/17/2021, Additional history exists Pneumococcal vaccine 65+ Completed 020, 07/23/2018, 07/17/2014 Medical Devices Implanted Type Area Line Assembly Utility Worker Device Identifier Shelf Expiration Date Model / Serial / Lot [employer] Lens Tecnis Eyhance Iol [id number] - [id number] - [id number] Implanted:Qty: 1 on 02/19/2022 by Onur Mcmullen MD at [facility] Lens Left: Eye [employer] 08/15/2024 [id number] / [id number] / 0 [employer] Lens Iol Posterior Biconvex Optic Single Piece Envista 6.0x12.5 +18.5d Hydrophobic Acrylic [id number] - [id number] - [id number] Implanted:Qty: 1 on 12/18/2021 by Onur Mcmullen MD at [facility] Right: Lens [employer] [id number] 05/28/2024 [id number] / [id number] / Procedures Procedure Name Priority Date/Time Associated Diagnosis Comments TRANSTHORACIC ECHO (TTE) COMPLETE W DOPPLER/CF WO CONTRAST Routine 01/24/2025 2:01 PM CDT Aortic root dilation from Last 3 Months Results * TRANSTHORACIC ECHO (TTE) COMPLETE W DOPPLER/CF WO CONTRAST (01/24/2025 2:01 PM CDT) EF Mod BP 57 % CONS SCIMAGE Anatomical Region Laterality Modality Ultrasound 01/24/2025 1:20 PM CDT Narrative 01/24/2025 5:08 PM CDT [facility], [address] [place] [address] Transthoracic Echocardiographic Report Patient Name: GARRETT BULLARD E : 1955 (69y 11m) Gender: M Study Date: 01/24/2025 01:20:25 PM Ht(Inch): 71 Wt(Lb): 207.01 BSA: 2.17 Consumer Loan Manager: Landy Humphrey (R.[email or web address]),[facility] Location: [facility] Order Provider: SHERRI PHAM Heart Rate: 57 BMI: 28.87 BP: 163 / 97 Ref Provider: SHERRI PHAM PROCEDURES: Echocardiographic Report: Transthoracic complete echo with strain imaging, 2D, spectral and tissue Doppler, color flow Doppler, M-mode. INDICATIONS: I77.810 Thoracic aortic ectasia. CONCLUSIONS: 1. Normal left ventricular size based on volume index. Concentric LV remodeling. Normal left ventricular systolic function. The Ejection Fraction (Comer's) is measured at 57 %. Normal diastolic function. The average global longitudinal strain is normal. 2. There is no significant valvular heart disease. COMPARISONS: No significant change compared to prior study on: 01/25/24. ATTESTATION: I have personally reviewed and interpreted this study without fellow or resident. - DISCLAIMER: The study images and the final report will be retained in the patient chart by the Echo Laboratory for the legally required time period. This chart constitutes the legal record of any testing performed. FINDINGS: Left Ventricle: Normal left ventricular size based on volume index. Concentric LV remodeling. Normal left ventricular systolic function. The Ejection Fraction (Comer's) is measured at 57 %. Normal diastolic function. The average global longitudinal strain is normal. The LV global strain is: -20.3 %. Right Ventricle: Normal right ventricular size. Normal right ventricular systolic function. Left Atrium: The left atrium is normal in size. Right Atrium: The right atrium is normal in size. Mitral Valve: Normal mitral valve structure. No mitral regurgitation. No stenosis present. Redundant mitral chordae. Aortic Valve: Normal trileaflet aortic valve. Mildly calcified aortic valve leaflets. No aortic regurgitation. No aortic valve stenosis. Tricuspid Valve: Normal tricuspid valve structure. No tricuspid regurgitation. No tricuspid valve stenosis. Pulmonic Valve: Normal pulmonic valve structure. Trace pulmonic regurgitation. No pulmonic valve stenosis present. Pericardium: Normal pericardium without pericardial effusion. Aorta: Mild aortic root dilation at sinuses of Valsalva. The ascending aorta is normal in size when indexed. IVC: The IVC was <2.1 cm and collapsibility >50%. (est. RA pressure 0-5 mmHg). The estimated RA pressure is 3 mmHg. PASP: Unable to determine PASP due to inadequate TR jet. Rhythm: Normal Sinus rhythm was seen during the study. MEASUREMENTS: 2D/MM Value Range Doppler Value Range LVIDd 2D 5.01 cm [ 4.20 - 5.80 ] AV VTI 28.0 cm LVIDs 2D 3.55 cm [ 2.50 - 4.00 ] LVOT VTI 25.0 cm IVSd 2D 1.15 cm [ 0.60 - 1.00 ] LVOT/AV VTI 0.89 - Dimensionless index (DVI) LVPWd 2D 1.11 cm [ 0.60 - 1.00 ] MV E Peak Darvin 0.4 m/s [ 0.6 - 1.3 ] LV Thickness Ratio 1.0 MV A Peak Darvin 0.6 m/s [ 1.0 - 1.2 ] RWT 0.44 MV E/A 0.8 ratio [ 0.8 - 1.5 ] EDV Mod BP 91.47 ml [ 62.00 - 150.00 ] MV Decel Time 399.63 msec [ 104.00 - 258.00 ] LV EDV Index 42.18 ml/m2 Med E` Darvin 5.6 cm/sec [ 8.0 - 25.0 ] ESV Mod BP 39.66 ml [ 21.00 - 61.00 ] Lat E` Darvin 10.0 cm/sec [ 10.0 - 25.0 ] EF Mod BP 57 % [ 52 - 72 ] Average E/E` 5.13 LV GLS -20.3 % [ -25.0 - -18.0 ] RV S` 18.35 cm/sec LA Dimension 2D 3.89 cm [ 3.00 - 4.00 ] RA Pressure 3 mmHg LA Length 4C 5.68 cm LA Length 2C 5.90 cm LA Volume BP 43.91 ml LA Volume Index 20.25 ml/m2 [ 16.00 - 34.00 ] RV Base Dimen 2D 2.8 cm [ 2.5 - 4.2 ] TAPSE 2.05 cm [ 1.71 - 5.00 ] RA Volume 36.60 ml RA Volume Index 16.88 ml/m2 IVC Diam 2.07 cm AoR Diam 2D 4.20 cm [ 3.10 - 3.70 ] Ao Root Index 1.94 cm/m2 [ 1.00 - 2.00 ] Asc Ao Diam 2D 3.34 cm Asc Ao Index 1.54 cm/m2 Electronically Signed By: Amber Zambrano MD 01/24/2025 5:07:35 PM CDT Procedure Note De Amber Aly MD - 01/24/2025 [facility], [address] [place] [address] Transthoracic Echocardiographic Report Patient Name: GARRETT BULLARD E : 1955 (69y 11m) Gender: M Study Date: 01/24/2025 01:20:25 PM Ht(Inch): 71 Wt(Lb): 207.01 BSA: 2.17 Consumer Loan Manager: Chandu Mckeon,[facility] Location: [facility] Order Provider:SHERRI PHAM Heart Rate: 57 BMI: 28.87 BP: 163 / 97 Ref Provider: VEROSHERRI PROCEDURES: Echocardiographic Report: Transthoracic complete echo with strain imaging,2D, spectral and tissue Doppler, color flow Doppler, M-mode. INDICATIONS: I77.810 Thoracic aortic ectasia. CONCLUSIONS: 1. Normal left ventricular size based on volume index. Concentric LVremodeling. Normal left ventricular systolic function. The Ejection Fraction (Comer's) ismeasured at 57 %. Normal diastolic function. The average global longitudinal strain isnormal. 2. There is no significant valvular heart disease. COMPARISONS: No significant change compared to prior study on: 01/25/24. ATTESTATION: I have personally reviewed and interpreted this study without fellow orresident. - DISCLAIMER: The study images and the final report will be retained in the patientchart by the Echo Laboratory for the legally required time period. This chart constitutesthe legal record of any testing performed. FINDINGS: Left Ventricle: Normal left ventricular size based on volume index.Concentric LV remodeling. Normal left ventricular systolic function. The EjectionFraction (Comer's) is measured at 57 %. Normal diastolic function. The average globallongitudinal strain is normal. The LV global strain is: -20.3 %. Right Ventricle: Normal right ventricular size. Normal right ventricularsystolic function. Left Atrium: The left atrium is normal in size. Right Atrium: The right atrium is normal in size. Mitral Valve: Normal mitral valve structure. No mitral regurgitation. Nostenosis present. Redundant mitral chordae. Aortic Valve: Normal trileaflet aortic valve. Mildly calcified aorticvalve leaflets. No aortic regurgitation. No aortic valve stenosis. Tricuspid Valve: Normal tricuspid valve structure. No tricuspidregurgitation. No tricuspid valve stenosis. Pulmonic Valve: Normal pulmonic valve structure. Trace pulmonicregurgitation. No pulmonic valve stenosis present. Pericardium: Normal pericardium without pericardial effusion. Aorta: Mild aortic root dilation at sinuses of Valsalva. The ascendingaorta is normal in size when indexed. IVC: The IVC was <2.1 cm and collapsibility >50%. (est. RA pressure 0-5mmHg). The estimated RA pressure is 3 mmHg. PASP: Unable to determine PASP due to inadequate TR jet. Rhythm: Normal Sinus rhythm was seen during the study. MEASUREMENTS: 2D/MM Value Range DopplerValue Range LVIDd 2D 5.01 cm [ 4.20 - 5.80 ] AV VTI28.0 cm LVIDs 2D 3.55 cm [ 2.50 - 4.00 ] LVOT VTI25.0 cm IVSd 2D 1.15 cm [ 0.60 - 1.00 ] LVOT/AV VTI0.89 - Dimensionless index (DVI) LVPWd 2D 1.11 cm [ 0.60 - 1.00 ] MV E Peak Vel0.4 m/s [ 0.6 - 1.3 ] LV Thickness Ratio 1.0 MV A Peak Vel0.6 m/s [ 1.0 - 1.2 ] RWT 0.44 MV E/A0.8 ratio [ 0.8 - 1.5 ] EDV Mod BP 91.47 ml [ 62.00 - 150.00 ] MV Decel Uywg735.63 msec [ 104.00 - 258.00 ] LV EDV Index 42.18 ml/m2 Med E` Vel5.6 cm/sec [ 8.0 - 25.0 ] ESV Mod BP 39.66 ml [ 21.00 - 61.00 ] Lat E` Vel10.0 cm/sec [ 10.0 - 25.0 ] EF Mod BP 57 % [ 52 - 72 ] Average E/E`5.13 LV GLS -20.3 % [ -25.0 - -18.0 ] RV S`18.35 cm/sec LA Dimension 2D 3.89 cm [ 3.00 - 4.00 ] RA Pressure3 mmHg LA Length 4C5.68 cm LA Length 2C5.90 cm LA Volume BP43.91 ml LA Volume Index 20.25 ml/m2 [ 16.00 - 34.00 ] RV Base Dimen 2D 2.8 cm [ 2.5 - 4.2 ] TAPSE 2.05 cm [ 1.71 - 5.00 ] RA Thqbxl66.60 ml RA Volume Index16.88 ml/m2 IVC Diam2.07 cm AoR Diam 2D 4.20 cm [ 3.10 - 3.70 ] Ao Root Index 1.94 cm/m2 [ 1.00 - 2.00 ] Asc Ao Diam 2D3.34 cm Asc Ao Index1.54 cm/m2 Electronically Signed By: Amber Zambrano MD 01/24/2025 5:07:35 PM CDT us Sherri Pham MD CV ECHO PROCEDURES Final Resu lt from Last 3 Months Insurance MEDICARE [facility] INSURANCE MEDICARE [facility] Advance Directives For more information, please contact: [phone] Documents on File Type Date Recorded Patient Cigar Head Holer Expl anation ADVANCE DIRECTIVE 06/30/2024 9:37 AM Power of Clinical Rehab Specialist-Medical Care Teams Line Servicer Relationship Specialty Start Date End Date Sherri Hi MD PCP - General Family Practice 01/20/23
--- OUTSIDE RECORDS SUMMARY | 2025-03-16 20:06 | XMS_ITS | Encounter Summary ---
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
--- OUTSIDE RECORDS SUMMARY | 2025-03-16 20:06 | XMS_ITS | Encounter Summary ---
Author Organization [facility] Address [address] [place] [address] Phone Care Team Providers Care Medical Insurance Claims Specialist Name Role Phone Stef Hi MD Primary Care Provider [phone] Encounter Details Date Type Department Care Team (Late st Contact Info) Description 08/18/2023 E-Visit [facility] Medicine Cardiology [address] [place] [address] Stef Batista MD [address] [facility] [address] [place], [place] [id number] Diclofenac topical Social History Tobacco Use Types Packs/Day Years [...] on file 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
[2025-03-16 20:29] VITALS: BP 173/91; PULSE 56; RESP 16; TEMP 36.3; O2SAT 100
--- OUTSIDE RECORDS SUMMARY | 2025-03-16 23:31 | XMS_ITS | Encounter Summary ---
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
--- OUTSIDE RECORDS SUMMARY | 2025-03-16 23:31 | XMS_ITS | Encounter Summary ---
Author Organization [facility] Address [address] [place] [address] Phone Care Team Providers Care Gas Leak Inspector Helper Name Role Phone Rolan Brar DO Primary Care Provider [phone] Stef Hi MD Primary Care Provider [phone] Encounter Details Date Type Department Care Team (Latest Contact Info) Description 04/10/2021 Orders Only [facility] Scanning, Provider Social History Tobacco Use Types Packs/Day Years Used Date Smoking Tobacco: Former Sex and Gender Information Value Date Recorded Sex Assigned at Not on file 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
--- OUTSIDE RECORDS SUMMARY | 2025-03-16 23:31 | XMS_ITS | Encounter Summary ---
Author Organization [facility] Address [address] [place] [address] Phone Care Team Providers Care Formation Fracturing Operator Name Role Phone Stef Hi MD Primary Care Provider [phone] Encounter Details Date Type Department Care Team (Late st Contact Info) Description 08/18/2023 E-Visit [facility] Medicine Cardiology [address] [facility] [address] [place] [address] Stef Batista MD [address] 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
--- OUTSIDE RECORDS SUMMARY | 2025-03-16 23:31 | XMS_ITS | Clinical Summary ---
Author Organization [facility] Address [address] [place] [address] Care Team Providers Care Manager Transportation Name Role Phone Sherri Hi MD Primary Care Provider [phone] Allergies Active Allergy Reactions Criticality Noted Date Comments Gilberto Inhibitors Cough Low lisinopril Hydrocodone Itching Low Reaction: Itching, [place] like spider webs on face Medications atorvastatin [...] Monitor Assessment & Plan (07/07/2023 3:26 PM FIRST CRUSHER): Excellent vision sc, monitor Assessment & Plan [...] OD Assessment & Plan (07/07/2023 3:26 PM FIRST CRUSHER): IOP today generally stable from previous, some flucuation from visit to visit Today 18/16 Baseline cirrus OCT today with polar changes OD, full OS [place] OCT stable from previous DFE at f/u [...] 24-2 Assessment & Plan (07/22/2022 2:21 PM FIRST CRUSHER): S/P phaco nicolás OD, phaco OS for [...] weeks later. 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 02/09/2015 Obesity with body mass index 30 or greater 07/26 Cardiomyopathy 07/26/2014 Resolved Problems Problem Noted Date Diagnosed Date Resolved Date Nuclear sclerotic cataract of right eye 12/04/2021 02/19/2022 Overview (12/04/2021): Added automatically from request for surgery [id number] (nuclear sclerosis), left 11/19/2021 01/20/2023 Assessment [...] Description 03/16/2025 7:30 PM CDT Office Visit [facility] at [address] [address] Bharati Chaudhary NP Dizziness (Primary Dx); Unsteady gait; Elevated blood pressure reading 01/26/2025 Orders Only [facility] Cardiology [address] [facility] [address] [place] [address] [place] [address] Sherri Pham MD Aortic root dilation (Primary Dx); Aortic valve sclerosis 01/26/2025 Results Follow-Up [facility] Cardiology [address] [facility] [address] [place] [address] [place] [address] Sherri Pham MD Transthoracic Echo (TTE) Complete W Doppler/CF 01/24/2025 1:30 PM CDT Ancillary Procedure [facility] Cardiology [address] [facility] [address] [place] [address] Aortic root dilation from Last 3 Months [...] on file Legal Sex Male 3:33 AM FIRST CRUSHER Gender Identity Not on file Sexual Orientation [...] 180.3 cm (5' 11) 06/20/2024 10:48 AM FIRST CRUSHER Body Mass Index 28.45 06/20/2024 10:48 AM FIRST CRUSHER Plan of Treatment Health Maintenance Due Date [...] 07/23/2018, 07/17/2014 Medical Devices Implanted Type Area Building Architect Device Identifier Shelf Expiration Date Model / Serial / Lot [employer] Lens Tecnis Eyhance Iol [id number] - [id number] - [id number] Implanted:Qty: 1 on 02/19/2022 by Onur Mcmullen MD at [facility] Lens Left: Eye [place] [employer] 08/15/2024 [id number] / [id number] / 0 [employer] Lens Iol Posterior Biconvex Optic Single Piece Envista 6.0x12.5 +18.5d Hydrophobic Acrylic [id number] - [id number] - [id number] Implanted:Qty: 1 on 12/18/2021 by Onur Mcmullen MD at [facility] Right: Lens [employer] [id number] 05/28/2024 [id number] / [id number] / Procedures Procedure Name Priority Date/Time [...] 01/24/2025 5:08 PM CDT [facility], [address] [place] [address] Transthoracic Echocardiographic Report Patient Name: GARRETT BULLARD E : 1955 (69y 11m) Gender: M Study Date: 01/24/2025 01:20:25 PM Ht(Inch): 71 Wt(Lb): 207.01 BSA: 2.17 Pit Hoist Operator: Landy Humphrey (R.TEverardo),[facility] Location: [facility] Order Provider: SHERRI PHAM Heart Rate: 57 [...] Aly MD - 01/24/2025 [facility], [address] [place] [address] Transthoracic Echocardiographic Report Patient Name: GARRETT BULLARD E : 1955 (69y 11m) Gender: M Study Date: 01/24/2025 01:20:25 PM Ht(Inch): 71 Wt(Lb): 207.01 BSA: 2.17 Pit Hoist Operator: Chandu Mckeon,[facility] Location: [facility] Order Provider:SHERRI PHAM Heart Rate: 57 BMI: [...] [ 62.00 - 150.00 ] MV Decel Zpvx363.63 msec [ 104.00 - 258.00 ] LV [...] cm [ 1.71 - 5.00 ] RA Aaojlf25.60 ml RA Volume Index16.88 ml/m2 IVC Diam2.07 cm AoR Diam 2D 4.20 cm [ 3.10 - 3.70 ] Ao Root Index 1.94 cm/m2 [ 1.00 - 2.00 ] Asc Ao Diam 2D3.34 cm Asc Ao Index1.54 cm/m2 Electronically Signed By: Amber Zambrano MD 01/24/2025 5:07:35 PM CDT us Sherri Pham MD CV ECHO PROCEDURES Final Resu lt from Last 3 Months Insurance MEDICARE [facility] INSURANCE MEDICARE [facility] Advance Directives For more information, please contact: [phone] Documents on File Type Date Recorded Patient Curb Attendant Expl anation ADVANCE DIRECTIVE 06/30/2024 9:37 AM Power of Plumber Supervisor-Medical Care Teams Manager Transportation Relationship Specialty Start Date End Date Sherri Hi MD PCP - General Family Practice 01/20/23
--- OUTSIDE RECORDS SUMMARY | 2025-03-16 23:31 | XMS_ITS | Encounter Summary ---
Author Organization [facility] [facility] Address [address] [place] [address] Phone Care Team Providers Care Nissan Sales Consultant Name Role Phone Stef Hi MD Primary Care Provider [phone] Encounter Details Date Type Department Care Team (Late st Contact Info) Description 01/26/2025 Results Follow-Up [facility] Medicine Cardiology [address] [facility] [address]th [place] [address] [place] [address] Stef Batista MD [address] [facility] [address] [place] [address] Transthoracic Echo (TTE) Complete W Doppler/CF Social [...] on file 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
--- OUTSIDE RECORDS SUMMARY | 2025-03-16 23:31 | XMS_ITS | Encounter Summary ---
Author Organization [facility] Address [address] [place] [address] Phone Care Team Providers Care Assembler Utility Buildings Name Role Phone Zonia Rolan Primary Care Provider [phone] Stef Hi MD Primary Care Provider [phone] Encounter Details Date Type Department Care Team (Late st Contact Info) Description 11/01/2019 Telephone [facility] Cardiology [address] [facility] 8th [place] [address] [place] [address] Maurisio Quevedo MD [address] [place] [address] Social History Tobacco Use Types Packs/Day Years Used Date Smoking Tobacco: Former Sex and Gender Information Value Date Recorded Sex Assigned at Not on file 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
[2025-03-16 23:55] LABS: Hematocrit 44.0 % (42.0-52.0); Hemoglobin 14.2 g/dL (14.0-18.0); Immature Granulocyte Percent A 0.3 % (0-0.5); Lymphocytes Absolute Auto 1.23 K/mm3 (0.9-3.2); Mean Corpuscular HGB Conc 32.3 g/dl (32-36); Mean Corpuscular Hemoglobin 28.5 pg (26-34); Mean Corpuscular Volume 88.2 fl (80-100); Nucleated Red Blood Cells Absolute Auto 0.000 K/mm3 (0.0-0.012); Nucleated Red Blood Cells Perc 0.0 % (0.0-0.2); Platelet Count Result 180 k/mm3 (150-375); Red Blood Count 4.99 M/mm3 (4.6-6.20); White Blood Count 7.3 K/mm3 (4.5-10.0)
[2025-03-16 23:56] VITALS: BP 154/101; PULSE 59; RESP 18; O2SAT 99
[2025-03-17] VITALS (21 sets, daily range): BP systolic 129–181; BP diastolic 73–104; PULSE 43–75; RESP 12–20; TEMP 36.1–36.7; O2SAT 96–100; BMI 29.2
--- NOTE | 2025-03-17 | ECHO_ITS ---
Patient Info Name: Jose Bullard Age: 70 years : 1955 Gender: Male Ht: 71 in Wt: 209 lbs BSA: 2.20 m2 HR: 54 bpm BP: 181 / 86 mmHg Technical Quality: Good Exam Date: 03/17/2025 11:10 AM Patient Status: O Admit Date: 03/17/2025 Exam Type: CA echo doppler w bubble study Complete two-dimensional, color flow and Doppler transthoracic echocardiogram is performed with agitated saline. Staff Referring Physician: Zeny Aguirre Airway Controller: Livia Padilla Attending Provider: Zeny Aguirre Contrast/Agitated Saline Contrast/Ag. Saline: Agitated Saline Amount: 20.00 ml Summary 1. Left ventricular chamber dimension is normal. 2. Left ventricular systolic function is normal, estimated at 60-65. 3. The left ventricular diastolic function is grade I diastolic dysfunction. 4. E/e' 4 is not elevated. 5. Agitated saline injection without and without valsalva maneuver opacified right side cardiac chambers with few bubbles shunt to left side cardiac chambers suggestive of patent foramen ovale. 6. There is mild aortic valve sclerosis. 7. There is trace mitral valve regurgitation. 8. There is trace tricuspid valve regurgitation. Left Ventricle E/e' 4 is not elevated. Left ventricular chamber dimension is normal. Left ventricular systolic function is normal, estimated at 60-65. The left ventricular diastolic function is grade I diastolic dysfunction. Right Ventricle Right ventricular chamber dimension is normal. Right ventricular systolic function is normal and with normal TAPSE 1.8 cm. Left Atria Left atrial chamber dimension is normal. Right Atria Right atrial chamber dimension is normal. Atrial Septum Suspected patent foramen ovale visualized by 2D and agitated saline imaging. Agitated saline injection without and without valsalva maneuver opacified right side cardiac chambers with few bubbles shunt to left side cardiac chambers suggestive of patent foramen ovale. Aortic Valve The aortic valve is trileaflet. There is mild aortic valve sclerosis. There is no aortic valve stenosis. There is no aortic valve regurgitation. Pulmonic Valve There is no pulmonic regurgitation. Mitral Valve There is no mitral valve stenosis. There is trace mitral valve regurgitation. Tricuspid Valve There is trace tricuspid valve regurgitation. RVSP is not measured due to in adequate TR jet. Pericardium/Pleural There is no pericardial effusion. Inferior Vena Cava Normal inferior vena cava with >50% collapse upon inspiration consistent with normal right atrial pressure, 5 mmHg. Aorta The aortic root size at the sinus of Valsalva is normal. Left Ventricular Outflow Tract Name Value Normal LVOT 2D LVOT Diameter 2.3 cm LVOT Doppler LVOT Peak Velocity 103 cm/s LVOT Peak Gradient 4 mmHg LVOT Mean Gradient 2 mmHg LVOT VTI 24 cm LVOT Stroke Volume 103 ml LVOT CO 5.5 l/min LVOT CI 2.5 l/min/m2 Pulmonic Valve Name Value Normal RVOT Doppler RVOT Peak Velocity 64 cm/s RVOT Peak Gradient 2 mmHg PV Doppler PV Peak Velocity 86 cm/s PV Peak Gradient 3 mmHg Mitral Valve Name Value Normal MV Diastolic Function MV E Peak Velocity 42 cm/s MV A Peak Velocity 78 cm/s MV E/A 0.5 MV Decel Time (PW) 355 ms MV Annular TDI MV E/e' (Septal) 6.4 MV E/e' (Lateral) 4.0 MV E/e' (Average) 5.2 Tricuspid Valve Name Value Normal Estimated PAP/RSVP RA Pressure 5 mmHg <=5 Aortic Valve Name Value Normal AV Doppler AV Peak Velocity 137 cm/s AV Peak Gradient 8 mmHg AV Area (Cont Eq Darvin) 3.2 cm2 AV DI (Darvin) 0.75 AV Regurgitation 2D LVOT Area 4.2 cm2 Ventricles Name Value Normal LV Dimensions 2D/MM IVS Diastolic Thickness (2D) 0.9 cm 0.6-1.0 LVID Diastole (2D) 5.4 cm 4.2-5.8 LVIW Diastolic Thickness (2D) 1.1 cm 0.6-1.0 LVID Systole (2D) 3.5 cm 2.5-4.0 LVOT Diameter 2.3 cm LV Mass (2D Cubed) 205.24 g 88.00-224.00 LV Mass Index (2D Cubed) 93 g/m2 49-115 Relative Wall Thickness (2D) 0.41 <=0.42 LV Fractional Shortening/Ejection Fraction 2D/MM LV Fractional Shortening (2D) 35 % 25-43 LV EF (2D Teichholz) 64 % LV Diastolic Volume (4C MOD) 126 ml LV EF (4C MOD) 69 % LV Diastolic Volume (2C MOD) 100 ml LV EF (2C MOD) 63 % LV Diastolic Volume (BP MOD) 112 ml 62-150 LV Diastolic Volume Index (BP MOD) 51 ml/m2 34-74 LV Systolic Volume (BP MOD) 38 ml 21-61 LV Systolic Volume Index (BP MOD) 17 ml/m2 11-31 LV EF (BP MOD) 66 % 52-72 LV Diastolic Length (4C) 8.7 cm LV Systolic Length (4C) 7.4 cm LV Stroke Volume (4C MOD) 86 ml Atria Name Value Normal LA Dimensions LA Volume (4C A-L) 29 ml LA Volume (BP A-L) 37 ml RA Dimensions RA Systolic Major Temperance Length (4C) 4.9 cm 2.1-2.7 RA Area (4C) 10.0 cm2 <=18.0 Report Signatures
[2025-03-17 00:23] LABS: Alanine Aminotransferase 29 U/L (6-50); Albumin Level 4.0 g/dL (3.5-5.1); Alkaline Phosphatase 102 U/L (38-126); Anion Gap 7 mmol/L (4-12); Aspartate Amino Transferase 30 U/L (17-59); Bilirubin,Total 0.9 mg/dL (0.2-1.3); Blood Urea Nitrogen 13 mg/dL (9-20); Calcium 8.8 mg/dL (8.4-10.2); Carbon Dioxide 26 mmol/L (22-30); Chloride 104 mmol/L (98-107); Estimated Glomerular Filt Rate > 60; Glucose 109 mg/dL (65-110); Potassium 3.9 mmol/L (3.4-5.0); Sodium 137 mmol/L (137-145); Total Protein 6.8 g/dL (6.3-8.2)
--- NOTE | 2025-03-17 04:29 | ED_ITS ---
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 He does have an unsteady gait because he has severe sciatica pain Related Data Home Medications ?Medication ?Instructions ?Recorded ?Confirmed ?Last Taken ?Type isosorbide mononitrate 30 mg 30 mg PO DAILY 05/12/19 0 01/03/25 Unknown History tablet,extended release 24 hr nitroglycerin 0.4 mg sublingual 0.4 mg sublingual Q5M PRN 05/12/19 01/03/25 Unknown History tablet (Nitrostat) cholecalciferol (vitamin D3) 50 50 mcg PO DAILY 01/03/25 Unknown History mcg (2,000 unit) capsule coenzyme Q10 100 mg capsule 200 mg PO DAILY 09/30/23 0 01/03/25 Unknown History (CoQ-10) lutein 20 mg capsule 20 mg PO DAILY 09/30/2302/20 Unknown History timolol 0.5 % eye drops 1 drp EACH EYE DAILY 4 01/03/25 Unknown History clopidogrel 75 mg tablet 75 mg PO DAILY 01/03/2502/20 Unknown History metoprolol succinate 25 mg 12.5 mg PO DAILY 01/03/25 0 01/03/25 Unknown History tablet,extended release 24 hr Allergies Allergy/AdvReac Type Severity Reaction Status Date / Time tadalafil Allergy Severe Visual Verified 03/16/25 20:05 side effects SHAWNA Inhibitors Allergy Unknown Cough Verified 03/16/25 20:05 hydrocodone Allergy Unknown Spider Verified 03/16/25 20:05 webs on face Review of Systems 2 Review of Systems: All systems reviewed & are unremarkable except as noted in HPI and below PMFSH Past Medical History Medical History (Updated 03/17/25 @ 04:36 by Deyanira Moses MD) Screening for AAA (abdominal aortic aneurysm) Global amnesia Chronic stable angina Blockage of coronary artery of heart Patellofemoral syndrome of left knee Medial meniscus tear Left knee pain Fatigue Prediabetes Spondylosis Ocular hypertension Chronic pain of both shoulders Essential (primary) hypertension Gastro-esophageal reflux disease without esophagitis Major depressive disorder, single episode, unspecified Blas's neuroma of left foot Surgical History Surgical History (Updated 01/03/25 @ 11:42 by Melania Kaufman APRN) Hx of cholecystectomy H/O hernia repair Family History Family History (Updated 01/03/25 @ 14:44 by Shanika Jiang [facility]) Mother Family history of coronary artery disease Hypertension Cerebrovascular accident Arthritis Father No family history of cardiovascular disease Diabetes mellitus Sibling No family history of cardiovascular disease Other Family history of congenital heart disease Social History Social History (Reviewed 01/03/25 @ 10:55 by Shanika Jiang [facility]) Smoking packs per day: 1.5 Smoking cigarettes per day: 30.0 Years smoked: 14 Smoking pack-years: 21.00 Smoking status: Never smoker Second hand tobacco smoke exposure: No Smoking end date: 06/29/86 Alcohol intake: former Substance use: never Substance use type: does not use Lack of Transportation: No Lack of Food: Never True Current Housing: I Have Housing Concerned About Future Housing: No Difficulty Paying Gas/Electric Bills: No Difficulty Paying for Meds: No Currently Unemployed: No Education: Master's Degree or Higher Living arrangements: with family Occupation/Education: retired Sexual Orientation (if Verbalized by the Patient): Straight or Heterosexual Exam 2 Narrative: EXAMINATION OF ORGAN SYSTEMS/BODY AREAS: Constitutional: Vital signs per nursing GENERAL:[No acute distress, non-toxic appearing.] HEAD: Normal with no signs of head trauma. EYES: EOMI, conjunctiva normal, PERRL, no nystagmus ENT: Hearing grossly intact LUNGS: Nonlabored breathing. HEART: [Regular rate and rhythm] ABD: [Soft], [nontender to palpation] EXT: Normal range of motion SKIN: [No rashes or lesions.] NEURO: [Alert and oriented x 3. No gross focal sensory or strength deficits.] Able to ambulate to and from bathroom without feeling dizzy. Slight limp. PSYCH: Normal affect Course Vital Signs Vital signs: Vital Signs Temperature 97.4 F L 03/16/25 20:29 Pulse Rate 56 L 03/16/25 20:29 Respiratory Rate 16 03/16/25 20:29 Blood Pressure 173/91 H 03/16/25 20:29 Pulse Oximetry 100 03/16/25 20:29 Oxygen Delivery Room Air 03/16/25 20:29 Temperature 97.4 F L 03/16/25 20:29 Pulse Rate 53 L 03/17/25 03:15 Respiratory Rate 14 03/17/25 03:15 Blood Pressure 155/88 H 03/17/25 01:01 Pulse Oximetry 98 03/17/25 03:15 Oxygen Delivery Room Air 03/16/25 20:29 MDM - Dizziness MDM Narrative Medical decision making narrative: Patient presents here after he had an episode of high blood pressure and dizziness that he describes as feeling like loss of balance, started around noon, worse when he moves around or stands up. He went to urgent care and they sent him to the ER for rule out stroke. On my evaluation now, he has no nystagmus, I was able to get in to set up and then stand up, and his sensation dizziness has resolved. He describes himself as having a slight brain fog. NIH stroke scale is currently a 0. He is ambulating to and from the bathroom without issues, he does have a slightly antalgic gait he reports is from severe sciatica that started 1-2 days ago. I did have long discussion with the patient, discussed that we had neurologist matt but will not have 1 on-call for this weekend, and I did offer transfer to outside hospital for Neurology consult. We did discuss that he does not meet requirement for tPA, or any other intervention, given the onset of symptoms, and the resolution of them, and since he is already on all anti stroke medications including Plavix, statins, I cannot guarantee that if he is transfer to another hospital there will be any acute intervention done. Patient and son at bedside, patient initially would like to go home, however after some discussion he would like to have an MRI done sooner rather than follow-up with Neurology in a few months. He would not like to be transferred since it is late at night he wants to go to sleep. He understands that if he is admitted here and get an MRI and there is signs of a stroke that he would need to be transferred at that time; he he was still prefer to stay and be admitted to this hospital. Discussed with hospitalist. Lab Data 03/16/25 23:35 03/16/25 23:35 Labs: Lab Results 03/16/25 Range/Units 23:35 WBC 7.3 (4.5-10.0) K/mm3 RBC 4.99 (4.6-6.20) M/mm3 Hgb 14.2 (14.0-18.0) g/dL Hct 44.0 (42.0-52.0) % MCV 88.2 (80-100) fl MCH 28.5 (26-34) pg MCHC 32.3 (32-36) g/dl RDW 13.7 (11.5-14.5) % Plt Count 180 (150-375) k/mm3 MPV 10.7 H (7.4-10.4) fl Immature Gran % (Auto) 0.3 (0-0.5) % Neut % (Auto) 77.0 H (45.5-73.1) % Lymph % (Auto) 16.9 L (18.3-44.2) % Evangeline % (Auto) 4.3 (2.6-8.5) % Eos % (Auto) 1.1 (0-4.4) % Baso % (Auto) 0.4 (0.2-1.2) % Lymph # (Auto) 1.23 (0.9-3.2) K/mm3 Evangeline # (Auto) 0.3 (0.1-0.6) K/mm3 Eos # (Auto) 0.1 (0-0.3) K/mm3 Baso # (Auto) 0.0 (0.0-0.1) K/mm3 Abs Immat Gran (auto) 0.02 (0.00-0.031) K/mm3 Absolute Neuts (auto) 5.6 (1.3-6.7) K/mm3 Absolute Nucleated RBC 0.000 (0.0-0.012) K/mm3 Nucleated RBC % 0.0 (0.0-0.2) % Sodium 137 (137-145) mmol/L Potassium 3.9 (3.4-5.0) mmol/L Chloride 104 (98-107) mmol/L Carbon Dioxide 26 (22-30) mmol/L Anion Gap 7 (4-12) mmol/L BUN 13 D (9-20) mg/dL Creatinine 0.75 (0.7-1.3) mg/dL Estim Creat Clear Calc Not Reportable Estimated GFR > 60 (59 - ) Glucose 109 (65-110) mg/dL Calcium 8.8 (8.4-10.2) mg/dL Total Bilirubin 0.9 (0.2-1.3) mg/dL AST 30 (17-59) U/L ALT 29 (6-50) U/L Alkaline Phosphatase 102 (38-126) U/L Total Protein 6.8 (6.3-8.2) g/dL Albumin 4.0 (3.5-5.1) g/dL Discharge Plan Discharge Clinical Impression: Dizziness Patient Disposition: Still a Patient Condition: Stable
--- NOTE | 2025-03-17 04:38 | ADMGEN ---
This patient, Jose Bullard, was admitted to Medical Room 247-. Patient/family oriented to hospital policies and general routines including ID bracelet, bed and alarms, visiting hours, pain management, procedures, bathroom and other care routines, personal items, smoking policy, room service/diet, and visiting hours. Information on how to activate the Rapid Response Team has been discussed. Patient/Family are encouraged to report perceived risks to care and to ask questions if they do not understand what they are told or what they should do.
--- NOTE | 2025-03-17 05:04 | PM.IMHP ---
H&P: HPI History of Present Illness Date/Time: 03/17/25 05:04 Chief Complaint: Dizziness Narrative: This is a 70-year-old male patient with a history of hypertension and anxiety who presented to the emergency room with complaints of dizziness. The patient stated he was sitting in his chair at home when he initially felt dizzy. The patient stated that his blood pressure was elevated and he took his anti anxiety medication. He stated that the anxiety medication helps when his blood pressure is elevated. The patient stated he felt dizzy when his blood pressure was elevated. The patient's symptoms had essentially resolved however he visited a local urgent care and they sent him to the emergency room to rule out a stroke. The patient had no focal weakness. The patient was complaining of some right-sided sciatica pain and was having difficulty walking due to the discomfort. His NIH stroke score is 0. The patient is moving all extremities and ambulating without difficulty. The ER physician as well as myself had a long discussion with the patient, we discussed that the neurologist will be unavailable over the weekend. The patient does not meet criteria for tPA or any other intervention. The patient declined transfer to tertiary care for further evaluation from a neurologist. Patient stated he understands that he would not be evaluated by a neurologist here at [facility]. ER physician reported that this CT of the head was negative for CVA. The patient is being admitted to observation status on the date of service of 03/17 Review of Systems Constitutional: Constitutional: Reports as per HPI and Reports no additional constitutional complaints Eyes: Eyes: Reports as per HPI and Reports no additional eye complaints ENT: Reports system reviewed and no additional complaints, except as documented and Reports Normal hearing present Cardiovascular: Cardiovascular: Reports no additional cardiovascular complaints Respiratory: Respiratory: Reports as per HPI and Reports no additional respiratory complaints Gastrointestinal: Gastrointestinal: Reports as per HPI and Reports no additional gastrointestinal complaints Musculoskeletal: Musculoskeletal: Reports no additional musculoskeletal complaints Integumentary/Breasts: Skin/Breast: Reports system reviewed and no additional complaints, except as docu Neurologic: Reports system reviewed and no additional complaints, except as documented and Reports Normal hearing present Psychiatric: Psychiatric: Reports no additional psychiatric complaints and Reports as per HPI Hematologic/Lymphatic: Hematologic/Lymphatic: Reports no additional hematologic/lymphatic complaints Allergic/Immunologic: Allergic/Immunologic: Reports no additional allergic/immunologic complaints [facility] Past Medical History Medical History (Updated 03/17/25 @ 05:21 by Nidhi Rebolledo APRN) Sciatica Glaucoma Screening for AAA (abdominal aortic aneurysm) Global amnesia Chronic stable angina Blockage of coronary artery of heart Patellofemoral syndrome of left knee Medial meniscus tear Left knee pain Fatigue Prediabetes Spondylosis Ocular hypertension Chronic pain of both shoulders Essential (primary) hypertension Gastro-esophageal reflux disease without esophagitis Major depressive disorder, single episode, unspecified Blas's neuroma of left foot Surgical History Surgical History (Updated 03/17/25 @ 05:12 by Nidhi Rebolledo APRN) H/O bilateral cataract extraction Hx of cholecystectomy H/O hernia repair Family History Family History Mother Family history of coronary artery disease Hypertension Cerebrovascular accident Arthritis Father No family history of cardiovascular disease Diabetes mellitus Sibling No family history of cardiovascular disease Other Family history of congenital heart disease Social History Social History (Updated 03/17/25 @ 05:15 by Nidhi Rebolledo APRN) Social History: The patient lives home alone he is . He has 2 children. 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 His son is the power of [employer]. Code status: Full code Smoking packs per day: 1.5 Smoking cigarettes per day: 30.0 Years smoked: 14 Smoking pack-years: 21.00 Smoking status: Former smoker Second hand tobacco smoke exposure: No Smoking end date: 06/29/86 Alcohol intake: never Substance use: never Substance use type: does not use Lack of Transportation: No Lack of Food: Never True Current Housing: I Have Housing Concerned About Future Housing: No Difficulty Paying Gas/Electric Bills: No Difficulty Paying for Meds: No Currently Unemployed: No Education: Master's Degree or Higher Difficulty w/ Childcare or Family Care: No Living arrangements: with family Occupation/Education: retired Sexual Orientation (if Verbalized by the Patient): Straight or Heterosexual Spiritual care concerns: No Meds Home Medications and Allergies Home Medications ?Medication ?Instructions ?Recorded ?Confirmed ?Type isosorbide mononitrate 30 mg 30 mg PO DAILY 05/12/19 03/17/25 History tablet,extended release 24 hr nitroglycerin 0.4 mg sublingual 0.4 mg sublingual Q5M PRN chest 05/12/19 03/17/25 History tablet (Nitrostat) pain cholecalciferol (vitamin D3) 50 50 mcg PO DAILY 09/30/23 03/17/25 History mcg (2,000 unit) capsule coenzyme Q10 100 mg capsule 200 mg PO DAILY 09/30/23 03/17/25 History (CoQ-10) lorazepam 1 mg tablet 1 mg PO BID PRN anxiety #60 tabs 09/30/23 03/17/25 Rx lutein 20 mg capsule 20 mg PO DAILY 09/30/23 03/17/25 History timolol 0.5 % eye drops 1 drp EACH EYE DAILY 09/30/23 03/17/25 History losartan 50 mg tablet 50 mg PO DAILY #90 tabs 09/27/24 03/17/25 Rx atorvastatin 40 mg tablet 40 mg PO DAILY #90 tabs 11/29/24 03/17/25 Rx clopidogrel 75 mg tablet 75 mg PO DAILY 01/03/25 03/17/25 History metoprolol succinate 25 mg 25 mg PO DAILY 01/03/25 03/17/25 History tablet,extended release 24 hr cyanocobalamin (vitamin B-12) 3,000 mcg PO DAILY 03/17/25 03/17/25 History 1,000 mcg tablet oxybutynin chloride 5 mg 5 mg PO DAILY 03/17/25 03/17/25 History tablet,extended release 24 hr Allergies Allergy/AdvReac Type Severity Reaction Status Date / Time tadalafil Allergy Severe Visual Verified 03/16/25 20:05 side effects SHAWNA Inhibitors Allergy Unknown Cough Verified 03/16/25 20:05 hydrocodone Allergy Unknown Spider Verified 03/16/25 20:05 webs on face Vital Signs Vital Signs - 24 hr 03/16/25 20:29 03/16/25 23:56 03/17/25 00:04 Temperature 97.4 F L Pulse Rate 56 L 59 L 56 L Respiratory Rate 16 18 15 Blood Pressure 173/91 H 154/101 H 157/104 H Pulse Oximetry 100 99 100 Oxygen Delivery Room Air 03/17/25 00:46 03/17/25 01:00 03/17/25 01:01 Temperature Pulse Rate 57 L 49 L Respiratory Rate 16 15 Blood Pressure 155/88 H Pulse Oximetry 100 98 97 Oxygen Delivery 03/17/25 01:17 03/17/25 01:31 03/17/25 01:46 Temperature Pulse Rate 51 L 62 54 L Respiratory Rate 12 15 16 Blood Pressure Pulse Oximetry 99 100 Oxygen Delivery 03/17/25 02:02 03/17/25 02:15 03/17/25 02:30 Temperature Pulse Rate 59 L 53 L 60 Respiratory Rate 13 15 18 Blood Pressure Pulse Oximetry 99 99 Oxygen Delivery 03/17/25 02:45 03/17/25 03:00 03/17/25 03:15 Temperature Pulse Rate 54 L 52 L 53 L Respiratory Rate 14 13 14 Blood Pressure Pulse Oximetry 99 100 98 Oxygen Delivery 03/17/25 04:53 03/17/25 04:58 Temperature 97 F L Pulse Rate 61 75 Respiratory Rate 20 Blood Pressure 181/86 H Pulse Oximetry 100 Oxygen Delivery Exam Const: General: cooperative, healthy appearing, comfortable, no acute distress, well developed, awake, Physically active, average body habitus and well nourished Nutritional Appearance: average body habitus and well nourished Orientation/consciousness: oriented to person, oriented to place, oriented to time and patient oriented x3 Limitations: no limitations HENMT: Head: normal to inspection, No palpable skull fracture present, normocephalic, atraumatic and abrasion Ears: hearing grossly normal bilaterally, external ears normal and TM's normal bilaterally Face/Nose/Sinus: Normal external nose present, Normal nares present and No nasal polyps present Mouth: Yes Normal oral and palatal mucosa present Eyes: General: appearance normal, both eyes and all related structures Alignment and Position: alignment normal Periorbital: periorbital findings normal Eyelids: eyelids normal Pupils: Equal, round and reactive pupils present and Pupil accommodation reflex normal EOM: EOMs intact bilaterally Neck: Neck: normal visual inspection, full ROM, no lymphadenopathy, trachea midline and supple Thyroid: thyroid normal Carotids: normal carotid upstroke Lymphatic: no lymphadenopathy noted Chest: Chest palpation & inspection: normal inspection of the chest Resp: Effort & Inspection: normal respiratory effort Auscultation: clear to auscultation bilaterally Cardio: Palpation: normal PMI Rate: regular rate Rhythm: regular rhythm Heart sounds: S1 normal heart sound present and S2 normal heart sound present Peripheral pulses: Peripheral pulses 2+ throughout GI: Inspection: normal to inspection Percussion: Yes normal to percussion Auscultation: normal bowel sounds Rectal Exam: deferred : General: Yes no CVA tenderness Back/Spine/Pelvis: Back: no CVA tenderness Cervical Spine: cervical ROM normal Thoracic/Lumbar Spine: thoracic and lumbar spine normal to inspection Pelvis: no pain with anterior-posterior compression Skin: General skin exam: normal color Lesions: no lesions Rashes: no rashes Trauma: no lacerations or abrasions Wounds: no wounds Hair: normal Nails: normal Neuro: General: oriented to person, oriented to place, oriented to time and patient oriented x3 Cranial nerves: Yes Equal, round and reactive pupils present and Yes Normal hearing present Cognition (Neuro): normal cognition Speech: normal speech Gait exam (Neuro): Normal gait present Motor exam (neuro): 5/5 motor strength present throughout Sensory Exam: normal sensation Extrem: General: normal to inspection Right upper extremity: normal to inspection and shoulder/upper arm Left upper extremity: normal to inspection and shoulder/upper arm Right lower extremity: normal to inspection Left lower extremity: normal to inspection Psych: Appearance: grossly normal Mental Status: mental status grossly normal Speech and movement: Normal speech and movement present Affect: normal affect Attitude: cooperative Thought process: Normal thought process present Thought content: Yes Normal thought content present Insight: Good insight present (Psych) Judgement: Good judgement present (Psych) H&P: Results Labs Labs: Short CBC 03/16/25 Range/Units 23:35 WBC 7.3 (4.5-10.0) K/mm3 Hgb 14.2 (14.0-18.0) g/dL Hct 44.0 (42.0-52.0) % Plt Count 180 (150-375) k/mm3 BMP 03/16/25 23:35 Sodium 137 Potassium 3.9 Chloride 104 Carbon Dioxide 26 BUN 13 D Creatinine 0.75 Glucose 109 Calcium 8.8 Liver Function 03/16/25 Range/Units 23:35 Total Bilirubin 0.9 (0.2-1.3) mg/dL AST 30 (17-59) U/L ALT 29 (6-50) U/L Alkaline Phosphatase 102 (38-126) U/L Albumin 4.0 (3.5-5.1) g/dL ECG Interpretation: SINUS RHYTHM NORMAL ECG Compared to ECG 12/19/2024 07:47:11 Sinus bradycardia no longer present First degree AV block no longer present Electronically Signed On 03-17-2025 13:02:40 CDT by Kristopher Oliver M.D. Imaging Chest x-ray: Radiologist's impression: Impressions Head CT 03/17/25 07:55 IMPRESSION: 1. Normal aging brain. Carotid Doppler Study 03/17/25 10:44 IMPRESSION: 1. No hemodynamically significant ICA stenosis (i.e., if any stenosis, less than 50%). 2. Normal bilateral antegrade vertebral artery flow. Stenosis measured by Society of Radiologists in Ultrasound (SRU) criteria. Brain MRI 03/17/25 12:02 IMPRESSION: 1. 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 No acute intracranial process. Chest X-Ray 03/17/25 14:45 IMPRESSION: 1. No acute cardiopulmonary findings. Assessment and Plan Assessment and plan (1) Dizziness: Code(s): R42 - Dizziness and giddiness Status: Acute Assessment and Plan: -check orthostatic blood pressures. -the patient did take anti anxiety medication which could possibly make him feel dizzy. -he denies any nausea vomiting or diarrhea. -continue to monitor electrolytes. -patient could have had a symptomatic hypertension. -the patient is also on metoprolol which could have caused some dizziness as well. -there was some mention about the possibility of a CVA. However the patient was informed that there is no neurologist on-call for the weekend. However the patient wanted to continue to be evaluated even though he is aware that he would not be evaluated by a neurologist. No neurological deficits are noted at this time. The patient is already on Plavix as he stated this is for coronary artery disease. He is also on a statin. -check carotid Doppler -MRI of the brain -echo Dopple -his dizziness could also be related to an arrhythmia and he may possibly need a cardiac Holter monitor. -may consider Cardiology consult if patient has dizziness with bradycardia. He did have some bradycardia on his EKG. (2) Essential (primary) hypertension: Code(s): I10 - Essential (primary) hypertension Status: Acute Assessment and Plan: -patient's blood pressure is moderately elevated. -continue with metoprolol -p.r.n. Hydralazine -continue losartan - (3) CAD (coronary artery disease): Code(s): I25.10 - Atherosclerotic heart disease of [place] coronary artery without angina pectoris Status: Acute Assessment and Plan: -the patient stated that he does have some coronary artery blockage but does not have a stent. He is being monitored closely by his fitness instructor. -continue with Plavix -continue with isosorbide and metoprolol -continue with statin (4) Other and unspecified hyperlipidemia: Code(s): E78.5 - Hyperlipidemia, unspecified Status: Acute Assessment and Plan: -continue with atorvastatin (5) Glaucoma: Code(s): H40.9 - Unspecified glaucoma Status: Acute Assessment and Plan: Continue with timolol (6) Benign prostatic hyperplasia with incomplete bladder emptying: Code(s): N40.1 - Benign prostatic hyperplasia with lower urinary tract symptoms; R39.14 - Feeling of incomplete bladder emptying Status: Acute Assessment and Plan: -continue with oxybutynin Quality VTE Prophylaxis VTE prophylaxis: mechanical ordered
--- NOTE | 2025-03-17 05:42 | ECG_ITS ---
Test Date: 2025-03-17 08:58:18 Measurements Intervals [place] Rate: 63 P: 23 MO: 188 QRS: 16 QRSD: 98 T: 23 QT: 425 QTc: 437 Interpretive Statements SINUS RHYTHM NORMAL ECG Compared to ECG 12/19/2024 07:47:11 Sinus bradycardia no longer present First degree AV block no longer present Electronically Signed On 03-17-2025 13:02:40 CDT by Kristopher Oliver M.D.
[2025-03-17 06:28] LABS: Troponin I < 0.012 ng/mL (0.000-0.034)
[2025-03-17] MEDS: CHOLECALCIFEROL (VITAMIN D3) 25 MCG (1,000 UNITS) TABLET 50 MCG PO (08:39)
[2025-03-17] MEDS: CLOPIDOGREL BISULFATE 75 MG TABLET PO (08:39)
[2025-03-17] MEDS: CYANOCOBALAMIN 1,000 MCG TABLET 3000 MCG PO (08:39)
[2025-03-17] MEDS: ATORVASTATIN 40 MG TABLET PO (08:40)
[2025-03-17] MEDS: LOSARTAN POTASSIUM 50 MG TABLET PO (08:40)
[2025-03-17] MEDS: METOPROLOL SUCCINATE EXT REL 25 MG TABCR PO (08:40)
[2025-03-17] MEDS: oxyBUTYnin CHLORIDE XL 5 MG TAB.ER.24 PO (08:40)
[2025-03-17] MEDS: ISOSORBIDE MONONITRATE 30 MG TAB.ER.24H PO (08:40)
[2025-03-17] MEDS: TIMOLOL MALEATE 0.5% OP SOLN 5 ML BOTTLE 1 DROP EACH EYE (08:43)
[2025-03-17 09:21] LABS: Hematocrit 45.3 % (42.0-52.0); Hemoglobin 14.6 g/dL (14.0-18.0); Immature Granulocyte Percent A 0.2 % (0-0.5); Lymphocytes Absolute Auto 1.03 K/mm3 (0.9-3.2); Mean Corpuscular HGB Conc 32.2 g/dl (32-36); Mean Corpuscular Hemoglobin 28.3 pg (26-34); Mean Corpuscular Volume 87.8 fl (80-100); Nucleated Red Blood Cells Absolute Auto 0.000 K/mm3 (0.0-0.012); Nucleated Red Blood Cells Perc 0.0 % (0.0-0.2); Platelet Count Result 179 k/mm3 (150-375); Red Blood Count 5.16 M/mm3 (4.6-6.20); White Blood Count 5.4 K/mm3 (4.5-10.0)
[2025-03-17 09:38] LABS: Anion Gap 7 mmol/L (4-12); Blood Urea Nitrogen 12 mg/dL (9-20); Calcium 9.0 mg/dL (8.4-10.2); Carbon Dioxide 27 mmol/L (22-30); Chloride 104 mmol/L (98-107); Estimated CRCL calculation 82 ml/min; Estimated Glomerular Filt Rate > 60; Glucose 92 mg/dL (65-110); Potassium 3.7 mmol/L (3.4-5.0); Sodium 138 mmol/L (137-145)
[2025-03-17 09:43] LABS: Troponin I < 0.012 ng/mL (0.000-0.034)
--- NOTE | 2025-03-17 11:15 | P.PNIM_ITS ---
Progress Note: A&P Assessment and Plan (1) Dizziness: Code(s): R42 - Dizziness and giddiness Status: Acute Assessment and Plan: improving Denies any focl deficits MRI brain, ECHO, and Carotids US pending Continue Plavix Daily orthostatic vital signs PT/OT?ST CT head no acute changes Patient was informed about absence of neurology this weekend and patient still chose to be admitted here monitor (2) Essential (primary) hypertension: Code(s): I10 - Essential (primary) hypertension Status: Acute Assessment and Plan: Blood pressure 181/86 Patient does not have any stroke symptoms already on Isosorbide mononitrate 30mg daily, Losartan 50mg, Metoprolol 25mg monitor and adjust with clinical course (3) CAD (coronary artery disease): Code(s): I25.10 - Atherosclerotic heart disease of [place] coronary artery without angina pectoris Status: Acute Assessment and Plan: -the patient stated that he does have some coronary artery blockage but does not have a stent. 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 -continue with Plavix (4) Other and unspecified hyperlipidemia: Code(s): E78.5 - Hyperlipidemia, unspecified Status: Acute Assessment and Plan: -continue with atorvastatin (5) Glaucoma: Code(s): H40.9 - Unspecified glaucoma Status: Acute Assessment and Plan: Continue with timolol (6) Benign prostatic hyperplasia with incomplete bladder emptying: Code(s): N40.1 - Benign prostatic hyperplasia with lower urinary tract symptoms; R39.14 - Feeling of incomplete bladder emptying Status: Acute Assessment and Plan: -continue with oxybutynin Plan DVT prophylaxis on Sq Lovenox Subjective Date/time seen: 03/17/25 11:15 Interval history: Patient comfortable at bedside Noted symptoms have improved, denies any focal deficits Review of Systems Constitutional: Constitutional: Reports as per HPI and Reports no additional constitutional complaints Eyes: Eyes: Reports as per HPI and Reports no additional eye complaints ENT: Reports system reviewed and no additional complaints, except as documented and Reports Normal hearing present Cardiovascular: Cardiovascular: Reports no additional cardiovascular complaints Respiratory: Respiratory: Reports as per HPI and Reports no additional respiratory complaints Gastrointestinal: Gastrointestinal: Reports as per HPI and Reports no additional gastrointestinal complaints Musculoskeletal: Musculoskeletal: Reports no additional musculoskeletal complaints Integumentary/Breasts: Skin/Breast: Reports system reviewed and no additional complaints, except as docu Neurologic: Reports system reviewed and no additional complaints, except as documented and Reports Normal hearing present Psychiatric: Psychiatric: Reports no additional psychiatric complaints and Rep orts as per HPI Hematologic/Lymphatic: Hematologic/Lymphatic: Reports no additional hematologic/lymphatic complaints Allergic/Immunologic: Allergic/Immunologic: Reports no additional allergic/immunologic complaints Exam Const: General: cooperative, healthy appearing, comfortable, no acute distress, well developed, awake, Physically active, average body habitus and well nourished Nutritional Appearance: average body habitus and well nourished Orientation/consciousness: oriented to person, oriented to place, oriented to time and patient oriented x3 Limitations: no limitations HENMT: Head: normal to inspection, No palpable skull fracture present, normocephalic, atraumatic and abrasion Ears: hearing grossly normal bilaterally, external ears normal and TM's normal bilaterally Face/Nose/Sinus: Normal external nose present, Normal nares present and No nasal polyps present Mouth: Yes Normal oral and palatal mucosa present Eyes: General: appearance normal, both eyes and all related structures Alignment and Position: alignment normal Periorbital: periorbital findings normal Eyelids: eyelids normal Pupils: Equal, round and reactive pupils present and Pupil accommodation reflex normal EOM: EOMs intact bilaterally Neck: Neck: normal visual inspection, full ROM, no lymphadenopathy, trachea midline and supple Thyroid: thyroid normal Carotids: normal carotid upstroke Lymphatic: no lymphadenopathy noted Chest: Chest palpation & inspection: normal inspection of the chest Resp: Effort & Inspection: normal respiratory effort Auscultation: clear to auscultation bilaterally Cardio: Palpation: normal PMI Rate: regular rate Rhythm: regular rhythm Heart sounds: S1 normal heart sound present and S2 normal heart sound present Peripheral pulses: Peripheral pulses 2+ throughout GI: Inspection: normal to inspection Auscultation: normal bowel sounds Rectal Exam: deferred : General: Yes no CVA tenderness Back/Spine/Pelvis: Back: no CVA tenderness Cervical Spine: cervical ROM normal Thoracic/Lumbar Spine: thoracic and lumbar spine normal to inspection Pelvis: no pain with anterior-posterior compression Skin: General skin exam: normal color Lesions: no lesions Rashes: no rashes Trauma: no lacerations or abrasions Wounds: no wounds Hair: normal Nails: normal Neuro: General: oriented to person, oriented to place, oriented to time and patient oriented x3 Cranial nerves: Yes Equal, round and reactive pupils present and Yes Normal hearing present Cognition (Neuro): normal cognition Speech: normal speech Gait exam (Neuro): Normal gait present Motor exam (neuro): 5/5 motor strength present throughout Sensory Exam: normal sensation Extrem: General: normal to inspection Right upper extremity: normal to inspection and shoulder/upper arm Left upper extremity: normal to inspection and shoulder/upper arm Right lower extremity: normal to inspection Left lower extremity: normal to inspection Psych: Appearance: grossly normal Mental Status: mental status grossly normal Speech and movement: Normal speech and movement present Affect: normal affect Attitude: cooperative Thought process: Normal thought process present Insight: Good insight present (Psych) Judgement: Good judgement present (Psych) Objective Data Vital Signs Vital Signs: Vital Signs - 24 hr 03/16/25 20:29 03/16/25 23:56 03/17/25 00:04 Temperature 97.4 F L Pulse Rate 56 L 59 L 56 L Respiratory Rate 16 18 15 Blood Pressure 173/91 H 154/101 H 157/104 H Pulse Oximetry 100 99 100 Oxygen Delivery Room Air 03/17/25 00:46 03/17/25 01:00 03/17/25 01:01 Temperature Pulse Rate 57 L 49 L Respiratory Rate 16 15 Blood Pressure 155/88 H Pulse Oximetry 100 98 97 Oxygen Delivery 03/17/25 01:17 03/17/25 01:31 03/17/25 01:46 Temperature Pulse Rate 51 L 62 54 L Respiratory Rate 12 15 16 Blood Pressure Pulse Oximetry 99 100 Oxygen Delivery 03/17/25 02:02 03/17/25 02:15 03/17/25 02:30 Temperature Pulse Rate 59 L 53 L 60 Respiratory Rate 13 15 18 Blood Pressure Pulse Oximetry 99 99 Oxygen Delivery 03/17/25 02:45 03/17/25 03:00 03/17/25 03:15 Temperature Pulse Rate 54 L 52 L 53 L Respiratory Rate 14 13 14 Blood Pressure Pulse Oximetry 99 100 98 Oxygen Delivery 03/17/25 04:53 03/17/25 04:58 03/17/25 05:01 Temperature 97 F L Pulse Rate 61 75 Respiratory Rate 20 Blood Pressure 181/86 H Pulse Oximetry 100 Oxygen Delivery Room Air 03/17/25 08:40 03/17/25 09:00 03/17/25 09:00 Temperature Pulse Rate 67 57 L Respiratory Rate Blood Pressure Pulse Oximetry Oxygen Delivery Room Air Intake/Output Intake/Output: Intake & Output 03/14/25 03/15/25 03/16/25 03/17/25 23:59 23:59 23:59 23:59 Intake Total 476 Output Total 200 Balance 276 Meds/Results Medications: Active Medications Generic Name Dose Route Start Last Admin Trade Name Freq PRN Reason Stop Dose Admin Atorvastatin Calcium 40 mg 03/17/25 09:00 03/17/25 08:40 Atorvastatin 40 Mg Tablet PO 40 mg DAILY BREANNA Administration Clopidogrel Bisulfate 75 mg 03/17/25 09:00 03/17/25 08:39 Clopidogrel Bisulfate 75 Mg Tablet PO 75 mg DAILY BREANNA Administration Cyanocobalamin 3,000 mcg 03/17/25 09:00 03/17/25 08:39 Cyanocobalamin 1,000 Mcg Tablet PO 3,000 mcg DAILY BREANNA Administration Hydralazine HCl 10 mg 03/17/25 05:15 Hydralazine Hcl 20 Mg/Ml Vial IV PUSH Q8H PRN Blood Pressure - High Isosorbide Mononitrate 30 mg 03/17/25 09:00 03/17/25 08:40 Isosorbide Mononitrate 30 Mg Tab.Er.24h PO 30 mg DAILY BREANNA Administration Lorazepam 1 mg 03/17/25 05:09 Lorazepam (*Crx) 1 Mg Tablet PO BID PRN Anxiety Losartan Potassium 50 mg 03/17/25 09:00 03/17/25 08:40 Losartan Potassium 50 Mg Tablet PO 50 mg DAILY BREANNA Administration Metoprolol Succinate 25 mg 03/17/25 09:00 03/17/25 08:40 Metoprolol Succinate Ext Rel 25 Mg Tabcr PO 25 mg DAILY BREANNA Administration Nitroglycerin 0.4 mg 03/17/25 05:09 Nitroglycerin Sl 0.4 Mg Tablet SUBLINGUAL Q5M PRN Chest Pain Coenzyme Q10 [Coq-10 1 each 03/17/25 09:00 03/17/25 08:41 ] 100 Mg Capsule XX 03/18/25 08:59 Not Given DAILY BREANNA Lutein 20 Mg Capsule 1 each 03/17/25 09:00 03/17/25 08:41 XX 03/18/25 08:59 Not Given DAILY BREANNA Oxybutynin Chloride 5 mg 03/17/25 09:00 03/17/25 08:40 Oxybutynin Chloride Xl 5 Mg Tab.Er.24 PO 5 mg DAILY BREANNA Administration Perflutren Lipid Microsphere 0 ml 03/17/25 05:25 Perflutren Lipid Microspheres 1.5 Ml Vial Diluted To 10 Ml Total Volume IV PUSH 03/20/25 05:25 ONCE PRN adequate visualization Protocol Timolol Maleate 1 drop 03/17/25 09:00 03/17/25 08:43 Timolol Maleate 0.5% Op Soln 5 Ml Bottle EACH EYE 1 drop DAILY BREANNA Administration Vitamin D 50 mcg 03/17/25 09:00 03/17/25 08:39 Cholecalciferol (Vitamin D3) 25 Mcg (1,000 Units) Tablet PO 50 mcg DAILY BREANNA Administration Radiology Results: ITS Impressions Head CT 03/17/25 07:55 IMPRESSION: 1. Normal aging brain. Carotid Doppler Study 03/17/25 10:44 IMPRESSION: 1. No hemodynamically significant ICA stenosis (i.e., if any stenosis, less than 50%). 2. Normal bilateral antegrade vertebral artery flow. Stenosis measured by Society of Radiologists in Ultrasound (SRU) criteria. Labs Labs: Laboratory Results - last 24 hr 03/16/25 03/17/25 03/17/25 23:35 05:52 08:46 WBC 7.3 5.4 RBC 4.99 5.16 Hgb 14.2 14.6 Hct 44.0 45.3 MCV 88.2 87.8 MCH 28.5 28.3 MCHC 32.3 32.2 RDW 13.7 13.5 Plt Count 180 179 MPV 10.7 H 11.1 H Immature Gran % (Auto) 0.3 0.2 Neut % (Auto) 77.0 H 71.9 Lymph % (Auto) 16.9 L 19.1 [place] % (Auto) 4.3 6.9 Eos % (Auto) 1.1 1.5 Baso % (Auto) 0.4 0.4 Lymph # (Auto) 1.23 1.03 [place] # (Auto) 0.3 0.4 Eos # (Auto) 0.1 0.1 Baso # (Auto) 0.0 0.0 Abs Immat Gran (auto) 0.02 0.01 Absolute Neuts (auto) 5.6 3.9 Absolute Nucleated RBC 0.000 0.000 Nucleated RBC % 0.0 0.0 Sodium 137 138 Potassium 3.9 3.7 Chloride 104 104 Carbon Dioxide 26 27 Anion Gap 7 7 BUN 13 D 12 Creatinine 0.75 0.75 Estim Creat Clear Calc Not Reportable 82 Estimated GFR > 60 > 60 Glucose 109 92 Calcium 8.8 9.0 Total Bilirubin 0.9 AST 30 ALT 29 Alkaline Phosphatase 102 Troponin I < 0.012 < 0.012 Total Protein 6.8 Albumin 4.0 Quality VTE Prophylaxis VTE prophylaxis: mechanical ordered
[2025-03-17] MEDS: LORazepam (*CRX) 1 MG TABLET PO (11:35)
[2025-03-17 13:13] LABS: Troponin I < 0.012 ng/mL (0.000-0.034)
--- NOTE | 2025-03-17 16:11 | PC.NURSE ---
Patient's HR on telemetry is dipping in low 40s. RN called MD Aguirre and did not receive new orders.
[2025-03-18] VITALS (14 sets, daily range): BP systolic 140–161; BP diastolic 81–96; PULSE 43–81; RESP 18–20; TEMP 36.5–36.7; O2SAT 96–99
[2025-03-18 05:31] LABS: Hematocrit 41.6 % (42.0-52.0); Hemoglobin 13.4 g/dL (14.0-18.0); Immature Granulocyte Percent A 0.2 % (0-0.5); Lymphocytes Absolute Auto 1.18 K/mm3 (0.9-3.2); Mean Corpuscular HGB Conc 32.2 g/dl (32-36); Mean Corpuscular Hemoglobin 28.8 pg (26-34); Mean Corpuscular Volume 89.5 fl (80-100); Nucleated Red Blood Cells Absolute Auto 0.000 K/mm3 (0.0-0.012); Nucleated Red Blood Cells Perc 0.0 % (0.0-0.2); Platelet Count Result 154 k/mm3 (150-375); Red Blood Count 4.65 M/mm3 (4.6-6.20); White Blood Count 4.6 K/mm3 (4.5-10.0)
[2025-03-18 05:53] LABS: Alanine Aminotransferase 23 U/L (6-50); Albumin Level 3.4 g/dL (3.5-5.1); Alkaline Phosphatase 84 U/L (38-126); Anion Gap 6 mmol/L (4-12); Aspartate Amino Transferase 30 U/L (17-59); Bilirubin,Total 0.8 mg/dL (0.2-1.3); Blood Urea Nitrogen 18 mg/dL (9-20); Calcium 8.6 mg/dL (8.4-10.2); Carbon Dioxide 27 mmol/L (22-30); Chloride 104 mmol/L (98-107); Estimated CRCL calculation 78 ml/min; Estimated Glomerular Filt Rate > 60; Glucose 90 mg/dL (65-110); Magnesium 2.0 mg/dL (1.6-2.3); Potassium 3.5 mmol/L (3.4-5.0); Sodium 137 mmol/L (137-145); Total Protein 6.0 g/dL (6.3-8.2)
[2025-03-18] MEDS: ISOSORBIDE MONONITRATE 30 MG TAB.ER.24H PO (09:54)
[2025-03-18] MEDS: LOSARTAN POTASSIUM 50 MG TABLET PO (09:54)
[2025-03-18] MEDS: CYANOCOBALAMIN 1,000 MCG TABLET 3000 MCG PO (09:54)
[2025-03-18] MEDS: CLOPIDOGREL BISULFATE 75 MG TABLET PO (09:54)
[2025-03-18] MEDS: oxyBUTYnin CHLORIDE XL 5 MG TAB.ER.24 PO (09:54)
[2025-03-18] MEDS: ATORVASTATIN 40 MG TABLET PO (09:54)
[2025-03-18] MEDS: CHOLECALCIFEROL (VITAMIN D3) 25 MCG (1,000 UNITS) TABLET 50 MCG PO (09:54)
[2025-03-18] MEDS: TIMOLOL MALEATE 0.5% OP SOLN 5 ML BOTTLE 1 DROP EACH EYE (09:55)
--- NOTE | 2025-03-18 10:06 | PC.NURSE ---
MD Aguirre was present during nurses's assessment. asked for RN to hold metoprolol due to patient's bradycardia yesterday and throughout the night. Junior Technical Writer will see patient.
--- NOTE | 2025-03-18 10:14 | P.PNIM_ITS ---
Progress Note: A&P Assessment and Plan (1) Dizziness: Code(s): R42 - Dizziness and giddiness Status: Acute Assessment and Plan: No dizziness since admission however patient has bradycardia last night with HR in the low 30s Denies any focal deficits CT head no acute changes MRI brain no acute changes, US carotids no significant stenosis ECHO pending Continue Plavix Orthostatic vital signs wnl PT/OT/ST cardiology consulted (2) Essential (primary) hypertension: Code(s): I10 - Essential (primary) hypertension Status: Acute Assessment and Plan: -patient's blood pressure is moderately elevated. -metoprolol on hold -p.r.n. Hydralazine -continue losartan, Isosorbide and started on HCTZ today - (3) CAD (coronary artery disease): Code(s): I25.10 - Atherosclerotic heart disease of [place] coronary artery without angina pectoris Status: Acute Assessment and Plan: -the patient stated that he does have some coronary artery blockage but does not have a stent. He is being monitored closely by his product steward. -continue with Plavix -continue with isosorbide and metoprolol -continue with statin (4) Other and unspecified hyperlipidemia: Code(s): E78.5 - Hyperlipidemia, unspecified Status: Acute Assessment and Plan: -continue with atorvastatin (5) Glaucoma: Code(s): H40.9 - Unspecified glaucoma Status: Acute Assessment and Plan: Continue with timolol (6) Benign prostatic hyperplasia with incomplete bladder emptying: Code(s): N40.1 - Benign prostatic hyperplasia with lower urinary tract symptoms; R39.14 - Feeling of incomplete bladder emptying Status: Acute Assessment and Plan: -continue with oxybutynin Plan Bradycardia, symptomatic HR in the low 30s Metoprolol on hold, Troponin negative ECHO pending, CXR no acute changes Cardiology consulted DVT prophylaxis on Sq Lovenox Subjective Date/time seen: 03/18/25 10:14 Interval history: Patient comfortable at bedside Patient noted to have braducardia with HR in the low 30s overnight Cardiology consulted Review of Systems Constitutional: Constitutional: Reports as per HPI and Reports no additional constitutional complaints Eyes: Eyes: Reports as per HPI and Reports no additional eye complaints ENT: Reports system reviewed and no additional complaints, except as documented and Reports Normal hearing present Cardiovascular: Cardiovascular: Reports no additional cardiovascular complaints Respiratory: Respiratory: Reports as per HPI and Reports no additional respiratory complaints Gastrointestinal: Gastrointestinal: Reports as per HPI and Reports no additional gastrointestinal complaints Musculoskeletal: Musculoskeletal: Reports no additional musculoskeletal complaints Integumentary/Breasts: Skin/Breast: Reports system reviewed and no additional complaints, except as docu Neurologic: Reports system reviewed and no additional complaints, except as documented and Reports Normal hearing present Psychiatric: Psychiatric: Reports no additional psychiatric complaints and Reports as per HPI Hematologic/Lymphatic: Hematologic/Lymphatic: Reports no additional hematologic/lymphatic complaints Allergic/Immunologic: Allergic/Immunologic: Reports no additional allergic/immunologic complaints Exam Const: General: cooperative, healthy appearing, comfortable, no acute distress, well developed, awake, Physically active, average body habitus and well nourished Nutritional Appearance: average body habitus and well nourished Orientation/consciousness: oriented to person, oriented to place, oriented to time and patient oriented x3 Limitations: no limitations HENMT: Head: normal to inspection, No palpable skull fracture present, normocephalic, atraumatic and abrasion Ears: hearing grossly normal bilaterally, external ears normal and TM's normal bilaterally Fa ce/Nose/Sinus: Normal external nose present, Normal nares present and No nasal polyps present Mouth: Yes Normal oral and palatal mucosa present Eyes: General: appearance normal, both eyes and all related structures Alignment and Position: alignment normal Periorbital: periorbital findings normal Eyelids: eyelids normal Pupils: Equal, round and reactive pupils present and Pupil accommodation reflex normal EOM: EOMs intact bilaterally Neck: Neck: normal visual inspection, full ROM, no lymphadenopathy, trachea midline and supple Thyroid: thyroid normal Carotids: normal carotid upstroke Lymphatic: no lymphadenopathy noted Chest: Chest palpation & inspection: normal inspection of the chest Resp: Effort & Inspection: normal respiratory effort Auscultation: clear to auscultation bilaterally Cardio: Palpation: normal PMI Rate: regular rate Rhythm: regular rhythm Heart sounds: S1 normal heart sound present and S2 normal heart sound present Peripheral pulses: Peripheral pulses 2+ throughout GI: Inspection: normal to inspection Auscultation: normal bowel sounds Rectal Exam: deferred : General: Yes no CVA tenderness Back/Spine/Pelvis: Back: no CVA tenderness Cervical Spine: cervical ROM normal Thoracic/Lumbar Spine: thoracic and lumbar spine normal to inspection Pelvis: no pain with anterior-posterior compression Skin: General skin exam: normal color Lesions: no lesions Rashes: no rashes Trauma: no lacerations or abrasions Wounds: no wounds Hair: normal Nails: normal Neuro: General: oriented to person, oriented to place, oriented to time and patient oriented x3 Cranial nerves: Yes Equal, round and reactive pupils present and Yes Normal hearing present Cognition (Neuro): normal cognition Speech: normal speech Gait exam (Neuro): Normal gait present Motor exam (neuro): 5/5 motor strength present throughout Sensory Exam: normal sensation Extrem: General: normal to inspection Right upper extremity: normal to ins pection and shoulder/upper arm Left upper extremity: normal to inspection and shoulder/upper arm Right lower extremity: normal to inspection Left lower extremity: normal to inspection Psych: Appearance: grossly normal Mental Status: mental status grossly normal Speech and movement: Normal speech and movement present Affect: normal affect Attitude: cooperative Thought process: Normal thought process present Insight: Good insight present (Psych) Judgement: Good judgement present (Psych) Objective Data Vital Signs Vital Signs: Vital Signs - 24 hr 03/17/25 14:00 03/17/25 16:00 03/17/25 20:00 Temperature 98.0 F Pulse Rate 62 43 L 45 L Respiratory Rate 19 Blood Pressure 162/80 H Pulse Oximetry 99 Oxygen Delivery 03/17/25 20:00 03/17/25 20:38 03/18/25 00:00 Temperature 98.1 F Pulse Rate 44 L 43 L Respiratory Rate 20 Blood Pressure 129/73 Pulse Oximetry 96 Oxygen Delivery Room Air 03/18/25 04:00 03/18/25 04:29 03/18/25 08:00 Temperature 97.7 F Pulse Rate 48 L 51 L 81 Respiratory Rate 20 Blood Pressure 152/84 H Pulse Oximetry 99 Oxygen Delivery 03/18/25 08:50 03/18/25 09:23 03/18/25 09:57 Temperature Pulse Rate 50 L Respiratory Rate 18 Blood Pressure 150/90 H Pulse Oximetry 99 Oxygen Delivery Room Air Room Air Intake/Output Intake/Output: Intake & Output 03/15/25 03/16/25 03/17/25 03/18/25 23:59 23:59 23:59 23:59 Intake Total 1436 530 Output Total 200 Balance 1236 530 Meds/Results Medications: Active Medications Generic Name Dose Route Start Last Admin Trade Name Freq PRN Reason Stop Dose Admin Atorvastatin Calcium 40 mg 03/17/25 09:00 03/18/25 09:54 Atorvastatin 40 Mg Tablet PO 40 mg DAILY BREANNA Administration Clopidogrel Bisulfate 75 mg 03/17/25 09:00 03/18/25 09:54 Clopidogrel Bisulfate 75 Mg Tablet PO 75 mg DAILY BREANNA Administration Cyanocobalamin 3,000 mcg 03/17/25 09:00 03/18/25 09:54 Cyanocobalamin 1,000 Mcg Tablet PO 3,000 mcg DAILY BREANNA Administration Enoxaparin Sodium 40 mg 03/18/25 09:00 03/18/25 08:14 Enoxaparin 40 Mg/0.4 Ml Syringe SUB-Q Not Given DAILY [facility] Hydralazine HCl 10 mg 03/17/25 05:15 Hydralazine Hcl 20 Mg/Ml Vial IV PUSH Q8H PRN Blood Pressure - High Hydrochlorothiazide 12.5 mg 03/18/25 09:00 03/18/25 09:54 Hydrochlorothiazide 12.5 Mg Capsule PO 12.5 mg QAM BREANNA Administration Isosorbide Mononitrate 30 mg 03/17/25 09:00 03/18/25 09:54 Isosorbide Mononitrate 30 Mg Tab.Er.24h PO 30 mg DAILY [facility] Administration Lorazepam 1 mg 03/17/25 05:09 03/17/25 11:35 Lorazepam (*Crx) 1 Mg Tablet PO 1 mg BID PRN Administration Anxiety Losartan Potassium 50 mg 03/17/25 09:00 03/18/25 09:54 Losartan Potassium 50 Mg Tablet PO 50 mg DAILY BREANNA Administration Metoprolol Succinate 25 mg 03/17/25 09:00 03/18/25 09:54 Metoprolol Succinate Ext Rel 25 Mg Tabcr PO Not Given DAILY [facility] Nitroglycerin 0.4 mg 03/17/25 05:09 Nitroglycerin Sl 0.4 Mg Tablet SUBLINGUAL Q5M PRN Chest Pain Oxybutynin Chloride 5 mg 03/17/25 09:00 03/18/25 09:54 Oxybutynin Chloride Xl 5 Mg Tab.Er.24 PO 5 mg DAILY BREANNA Administration Perflutren Lipid Microsphere 0 ml 03/17/25 05:25 Perflutren Lipid Microspheres 1.5 Ml Vial Diluted To 10 Ml Total Volume IV PUSH 03/20/25 05:25 ONCE PRN adequate visualization Protocol Timolol Maleate 1 drop 03/17/25 09:00 03/18/25 09:55 Timolol Maleate 0.5% Op Soln 5 Ml Bottle EACH EYE 1 drop DAILY BREANNA Administration Vitamin D 50 mcg 03/17/25 09:00 03/18/25 09:54 Cholecalciferol (Vitamin D3) 25 Mcg (1,000 Units) Tablet PO 50 mcg DAILY BREANNA Administration Radiology Results: ITS Impressions Head CT 03/17/25 07:55 IMPRESSION: 1. Normal aging brain. Carotid Doppler Study 03/17/25 10:44 IMPRESSION: 1. No hemodynamically significant ICA stenosis (i.e., if any stenosis, less than 50%). 2. Normal bilateral antegrade vertebral artery flow. Stenosis measured by Society of Radiologists in Ultrasound (SRU) criteria. Brain MRI 03/17/25 12:02 IMPRESSION: 1. 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 No acute intracranial process. Chest X-Ray 03/17/25 14:45 IMPRESSION: 1. No acute cardiopulmonary findings. Labs Labs: Laboratory Results - last 24 hr 03/17/25 03/18/25 12:44 04:37 WBC 4.6 RBC 4.65 Hgb 13.4 L Hct 41.6 L MCV 89.5 MCH 28.8 MCHC 32.2 RDW 13.6 Plt Count 154 MPV 11.2 H Immature Gran % (Auto) 0.2 Neut % (Auto) 63.1 Lymph % (Auto) 25.8 [place] % (Auto) 7.7 Eos % (Auto) 2.8 Baso % (Auto) 0.4 Lymph # (Auto) 1.18 [place] # (Auto) 0.4 Eos # (Auto) 0.1 Baso # (Auto) 0.0 Abs Immat Gran (auto) 0.01 Absolute Neuts (auto) 2.9 Absolute Nucleated RBC 0.000 Nucleated RBC % 0.0 Sodium 137 Potassium 3.5 Chloride 104 Carbon Dioxide 27 Anion Gap 6 BUN 18 Creatinine 0.79 Estim Creat Clear Calc 78 Estimated GFR > 60 Glucose 90 Calcium 8.6 Magnesium 2.0 Total Bilirubin 0.8 AST 30 ALT 23 Alkaline Phosphatase 84 Troponin I < 0.012 Total Protein 6.0 L Albumin 3.4 L Quality VTE Prophylaxis VTE prophylaxis: mechanical ordered
--- NOTE | 2025-03-18 12:49 | PM.CNCAR ---
Assessment and Plan Assessment and plan (1) CAD (coronary artery disease): Code(s): I25.10 - Atherosclerotic heart disease of [place] coronary artery without angina pectoris Status: Acute Plan 70-year-old man with coronary artery disease presenting with symptoms of dizziness and unsteadiness of his gait. I do not believe we have any evidence of acute stroke which is the principal reason for which he was sent here for evaluation. In looks like he was found to have a couple of previous small cerebellar infarctions. The patient takes a modest dose of metoprolol succinate for his coronary artery disease. With this modest dose he is bradycardic but I am not convinced that he is symptomatically bradycardic he would be my impression to continue his modest dose of metoprolol although this is not a hugely important decision. If he was on a high dose of the beta-hina I would recommend reducing it since he is on only 25 mg daily it would be my tendency to continue the medication. If you are more concerned about his heart rate I would not argue against stopping the medication however I not convince myself that this has anything to do with his presenting symptoms Niko Good MD [facility] History of Present Illness History of Present Illness Consult date/time: 03/18/25 12:49 Reason For Visit: dizziness Narrative: This is a 75-year-old man who is being seen at the request of the hospitalist because of bradycardia in the setting of beta-hina use. The patient is known to have coronary artery disease and is being managed medically by physicians at [facility]. He is not known to me prior to this consultation. He was sent [facility] yesterday from an urgent care center because they thought a acute stroke should be ruled out. He presented there with some symptoms of dizziness and unsteadiness in his gait. I in the emergency room there was no evidence of an acute stroke. He was admitted for further evaluation. CT of the brain and an MRI of the brain were done. The MRI appears to show evidence of 2 small previous cerebellar strokes but nothing that appeared acute. The patient has coronary artery disease and is followed again by Cardiology at [facility]. The chart indicates that he has long area of moderate stenosis in the distal left anterior descending for which medical therapy has been recommended. His medical therapy consists of aspirin, clopidogrel, a part of statin, isosorbide and metoprolol. His metoprolol dosage is low at 25 mg daily. In the hospital it is noted on telemetry that he is sinus bradycardia heart rates are in the 50s in general. When he is at rest sometimes his heart rate is in the high 40s. The patient states that he watches vital signs at home with his Fitbit and resting heart rates in the 40s are not unusual for him. He does have hypertension his systolic blood pressure is moderately elevated in the hospital but there are no other cardiovascular concerns that I can see at this time. He is not reporting any symptoms of active/exertional angina. He does not have any history of syncope or near syncope. Review of Systems Constitutional: Constitutional: Reports no additional constitutional complaints Eyes: Eyes: Reports no additional eye complaints ENT: Reports system reviewed and no additional complaints, except as documented Cardiovascular: Cardiovascular: Reports no additional cardiovascular complaints Respiratory: Respiratory: Reports no additional respiratory complaints Gastrointestinal: Gastrointestinal: Reports no additional gastrointestinal complaints Musculoskeletal: Musculoskeletal: Reports no additional musculoskeletal complaints Integumentary/Breasts: Skin/Breast: Reports system reviewed and no additional complaints, except as docu Neurologic: Reports as per HPI Endocrine: Endocrine: Reports no additional endocrine complaints Hematologic/Lymphatic: Hematologic/Lymphatic: Reports no additional hematologic/lymphatic complaints Allergic/Immunologic: Allergic/Immunologic: Reports no additional allergic/immunologic complaints [facility] Past Medical History Medical History (Updated 03/17/25 @ 05:21 by Nidhi Rebolledo APRN) Sciatica Glaucoma Screening for AAA (abdominal aortic aneurysm) Global amnesia Chronic stable angina Blockage of coronary artery of heart Patellofemoral syndrome of left knee Medial meniscus tear Left knee pain Fatigue Prediabetes Spondylosis Ocular hypertension Chronic pain of both shoulders Essential (primary) hypertension Gastro-esophageal reflux disease without esophagitis Major depressive disorder, single episode, unspecified Blas's neuroma of left foot Surgical History Surgical History (Updated 03/17/25 @ 05:12 by Nidhi Rebolledo APRN) H/O bilateral cataract extraction Hx of cholecystectomy H/O hernia repair Family History Family History Mother Family history of coronary artery disease Hypertension Cerebrovascular accident Arthritis Father No family history of cardiovascular disease Diabetes mellitus Sibling No family history of cardiovascular disease Other Family history of congenital heart disease Social History Social History (Updated 03/17/25 @ 05:15 by SAJI Barrett Social History: The patient lives home alone he is . He has 2 children. 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 His son is the power of workers compensation attorney for healthcare. Code status: Full code Smoking packs per day: 1.5 Smoking cigarettes per day: 30.0 Years smoked: 14 Smoking pack-years: 21.00 Smoking status: Former smoker Second hand tobacco smoke exposure: No Smoking end date: 06/29/86 Alcohol intake: never Substance use: never Substance use type: does not use Lack of Transportation: No Lack of Food: Never True Current Housing: I Have Housing Concerned About Future Housing: No Difficulty Paying Gas/Electric Bills: No Difficulty Paying for Meds: No Currently Unemployed: No Education: Master's Degree or Higher Difficulty w/ Childcare or Family Care: No Living arrangements: with family Occupation/Education: retired Sexual Orientation (if Verbalized by the Patient): Straight or Heterosexual Spiritual care concerns: No Meds Home Medications and Allergies Home Medications ?Medication ?Instructions ?Recorded ?Confirmed ?Type isosorbide mononitrate 30 mg 30 mg PO DAILY 05/12/19 03/17/25 History tablet,extended release 24 hr nitroglycerin 0.4 mg sublingual 0.4 mg sublingual Q5M PRN chest 05/12/19 03/17/25 History tablet (Nitrostat) pain cholecalciferol (vitamin D3) 50 50 mcg PO DAILY 09/30/23 03/17/25 History mcg (2,000 unit) capsule coenzyme Q10 100 mg capsule 200 mg PO DAILY 09/30/23 03/17/25 History (CoQ-10) lorazepam 1 mg tablet 1 mg PO BID PRN anxiety #60 tabs 09/30/23 03/17/25 Rx lutein 20 mg capsule 20 mg PO DAILY 09/30/23 03/17/25 History timolol 0.5 % eye drops 1 drp EACH EYE DAILY 09/30/23 03/17/25 History losartan 50 mg tablet 50 mg PO DAILY #90 tabs 09/27/24 03/17/25 Rx atorvastatin 40 mg tablet 40 mg PO DAILY #90 tabs 11/29/24 03/17/25 Rx clopidogrel 75 mg tablet 75 mg PO DAILY 01/03/25 03/17/25 History metoprolol succinate 25 mg 25 mg PO DAILY 01/03/25 03/17/25 History tablet,extended release 24 hr cyanocobalamin (vitamin B-12) 3,000 mcg PO DAILY 03/17/25 03/17/25 History 1,000 mcg tablet oxybutynin chloride 5 mg 5 mg PO DAILY 03/17/25 03/17/25 History tablet,extended release 24 hr Allergies Allergy/AdvReac Type Severity Reaction Status Date / Time tadalafil Allergy Severe Visual Verified 03/16/25 20:05 side effects SHAWNA Inhibitors Allergy Unknown Cough Verified 03/16/25 20:05 hydrocodone Allergy Unknown Spider Verified 03/16/25 20:05 webs on face Vital Signs Vital Signs - 24 hr 03/17/25 14:00 03/17/25 16:00 03/17/25 20:00 Temperature 36.7 C Pulse Rate 62 43 L 45 L Respiratory Rate 19 Blood Pressure 162/80 H Pulse Oximetry 99 Oxygen Delivery 03/17/25 20:00 03/17/25 20:38 03/18/25 00:00 Temperature 36.7 C Pulse Rate 44 L 43 L Respiratory Rate 20 Blood Pressure 129/73 Pulse Oximetry 96 Oxygen Delivery Room Air 03/18/25 04:00 03/18/25 04:29 03/18/25 08:00 Temperature 36.5 C Pulse Rate 48 L 51 L 81 Respiratory Rate 20 Blood Pressure 152/84 H Pulse Oximetry 99 Oxygen Delivery 03/18/25 08:50 03/18/25 09:23 03/18/25 09:55 Temperature Pulse Rate Respiratory Rate Blood Pressure Pulse Oximetry Oxygen Delivery Room Air Room Air Room Air 03/18/25 09:57 03/18/25 10:30 03/18/25 12:00 Temperature Pulse Rate 50 L 55 L 61 Respiratory Rate 18 20 Blood Pressure 150/90 H Pulse Oximetry 99 96 Oxygen Delivery Room Air Exam Const: General: comfortable and no acute distress HENMT: Mouth: Yes moist mucous membranes Eyes: Sclera: sclerae normal Neck: Neck: supple and no JVD Resp: Effort & Inspection: normal respiratory effort Auscultation: clear to auscultation bilaterally Cardio: Rate: regular rate Rhythm: regular rhythm GI: GI Palp: Yes Soft to palpation Auscultation: normal bowel sounds Skin: General skin exam: normal color Neuro: Other: Alert and oriented x3 Extrem: General: normal to inspection Results Labs and Meds 03/18/25 04:37 03/18/25 04:37 Lab results: Cardiac Enzymes 03/17/25 03/18/25 Range/Units 12:44 04:37 AST 30 (17-59) U/L Troponin I < 0.012 (0.000-0.034) ng/mL CBC 03/18/25 Range/Units 04:37 WBC 4.6 (4.5-10.0) K/mm3 RBC 4.65 (4.6-6.20) M/mm3 Hgb 13.4 L (14.0-18.0) g/dL Hct 41.6 L (42.0-52.0) % Plt Count 154 (150-375) k/mm3 Lymph # (Auto) 1.18 (0.9-3.2) K/mm3 [place] # (Auto) 0.4 (0.1-0.6) K/mm3 Eos # (Auto) 0.1 (0-0.3) K/mm3 Baso # (Auto) 0.0 (0.0-0.1) K/mm3 Comprehensive Metabolic Panel 03/18/25 Range/Units 04:37 Sodium 137 (137-145) mmol/L Potassium 3.5 (3.4-5.0) mmol/L Chloride 104 (98-107) mmol/L Carbon Dioxide 27 (22-30) mmol/L BUN 18 (9-20) mg/dL Creatinine 0.79 (0.7-1.3) mg/dL Glucose 90 (65-110) mg/dL Calcium 8.6 (8.4-10.2) mg/dL AST 30 (17-59) U/L ALT 23 (6-50) U/L Alkaline Phosphatase 84 (38-126) U/L Total Protein 6.0 L (6.3-8.2) g/dL Albumin 3.4 L (3.5-5.1) g/dL Intake and Output 03/17/25 03/18/25 03/18/25 23:59 07:59 15:59 Intake Total 720 290 240 Balance 720 290 240 Intake: Oral 720 290 240 Other: # Unmeasured Voids 1 1
[2025-03-18] MEDS: METOPROLOL SUCCINATE EXT REL 25 MG TABCR PO (21:19)
[2025-03-19] VITALS (8 sets, daily range): BP systolic 123–148; BP diastolic 79–97; PULSE 50–69; RESP 18; TEMP 36.5–36.7; O2SAT 97–98
[2025-03-19 05:24] LABS: Hematocrit 43.4 % (42.0-52.0); Hemoglobin 14.1 g/dL (14.0-18.0); Immature Granulocyte Percent A 0.2 % (0-0.5); Lymphocytes Absolute Auto 1.33 K/mm3 (0.9-3.2); Mean Corpuscular HGB Conc 32.5 g/dl (32-36); Mean Corpuscular Hemoglobin 28.6 pg (26-34); Mean Corpuscular Volume 88.0 fl (80-100); Nucleated Red Blood Cells Absolute Auto 0.000 K/mm3 (0.0-0.012); Nucleated Red Blood Cells Perc 0.0 % (0.0-0.2); Platelet Count Result 171 k/mm3 (150-375); Red Blood Count 4.93 M/mm3 (4.6-6.20); White Blood Count 5.4 K/mm3 (4.5-10.0)
[2025-03-19 05:48] LABS: Alanine Aminotransferase 24 U/L (6-50); Albumin Level 3.8 g/dL (3.5-5.1); Alkaline Phosphatase 83 U/L (38-126); Anion Gap 5 mmol/L (4-12); Aspartate Amino Transferase 30 U/L (17-59); Bilirubin,Total 0.7 mg/dL (0.2-1.3); Blood Urea Nitrogen 18 mg/dL (9-20); Calcium 8.8 mg/dL (8.4-10.2); Carbon Dioxide 30 mmol/L (22-30); Chloride 102 mmol/L (98-107); Estimated CRCL calculation 74 ml/min; Estimated Glomerular Filt Rate > 60; Glucose 91 mg/dL (65-110); Magnesium 1.9 mg/dL (1.6-2.3); Potassium 3.6 mmol/L (3.4-5.0); Sodium 137 mmol/L (137-145); Total Protein 6.5 g/dL (6.3-8.2)
[2025-03-19] MEDS: ISOSORBIDE MONONITRATE 30 MG TAB.ER.24H PO (09:21)
[2025-03-19] MEDS: CYANOCOBALAMIN 1,000 MCG TABLET 3000 MCG PO (09:21)
[2025-03-19] MEDS: TIMOLOL MALEATE 0.5% OP SOLN 5 ML BOTTLE 1 DROP EACH EYE (09:21)
[2025-03-19] MEDS: CLOPIDOGREL BISULFATE 75 MG TABLET PO (09:22)
[2025-03-19] MEDS: LOSARTAN POTASSIUM 50 MG TABLET PO (09:22)
[2025-03-19] MEDS: ATORVASTATIN 40 MG TABLET PO (09:22)
[2025-03-19] MEDS: CHOLECALCIFEROL (VITAMIN D3) 25 MCG (1,000 UNITS) TABLET 50 MCG PO (09:22)
[2025-03-19] MEDS: oxyBUTYnin CHLORIDE XL 5 MG TAB.ER.24 PO (09:22)
--- NOTE | 2025-03-19 13:21 | P.PNCA_ITS ---
Progress Note: A&P Assessment and Plan (1) CAD (coronary artery disease): Code(s): I25.10 - Atherosclerotic heart disease of [place] coronary artery without angina pectoris Status: Acute Plan 70-year-old man with history of moderate LAD disease for which he is asymptomatic being treated medically by his instructional material director at [place]. He appears to have had a couple of the ischemic cerebellar infarctions based on the evidence of the MRI and echocardiogram appears to show evidence of a patent foramen ovale. I would recommend transitioning him from clopidogrel to anticoagulation therapy with apixaban at this time and he should follow-up with his established instructional material director at [place]. A long discussion with the patient today about patent foramen ovale and options of treating this with anticoagulation versus is percutaneous occlusion of the defect. He is a long established patient of the Department of Cardiology at [place] his next appointment with at physician is in May and he should discuss this with his established physicians physician at that time Niko Good MD [facility] Subjective Date/time seen: Date of service: 03/19/25 13:21 Interval history: Follow-up visit in this 70-year-old man with: Episodes of dizziness, unsteady gait, patient relatively bradycardic but not really symptomatic in my opinion. Found to have 2 previous cerebellar infarcts on initial MRI evaluation as mentioned in my note. Echocardiogram was done yesterday ( Dr Jaspreet gomez) demonstrating evidence of a patent foramen ovale. Exam Const: General: comfortable and no acute distress HENMT: Mouth: Yes moist mucous membranes Eyes: Sclera: sclerae normal Neck: Neck: supple and no JVD Resp: Effort & Inspection: normal respiratory effort Auscultation: clear to auscultation bilaterally Cardio: Rate: regular rate Rhythm: regular rhythm Skin: General skin exam: normal color Neuro: Other: Alert and oriented x3 Extrem: General: normal to inspection Objective Data Vital Signs Vital Signs: Vital Signs - 24 hr 03/18/25 13:45 03/18/25 13:49 03/18/25 14:03 Temperature Pulse Rate 54 L 57 L 68 Respiratory Rate Blood Pressure 154/81 H 143/86 H 140/85 Pulse Oximetry Oxygen Delivery 03/18/25 14:03 03/18/25 16:00 03/18/25 20:00 Temperature Pulse Rate 68 61 61 Respiratory Rate Blood Pressure 140/85 Pulse Oximetry Oxygen Delivery 03/18/25 20:00 03/18/25 21:19 03/18/25 22:00 Temperature 36.7 C Pulse Rate 60 60 Respiratory Rate 18 Blood Pressure 161/96 H Pulse Oximetry 99 Oxygen Delivery Room Air 03/19/25 00:00 03/19/25 04:00 03/19/25 06:00 Temperature 36.7 C Pulse Rate 50 L 60 60 Respiratory Rate 18 Blood Pressure 145/97 H Pulse Oximetry 98 Oxygen Delivery 03/19/25 08:00 03/19/25 08:00 03/19/25 12:00 Temperature Pulse Rate 56 L 53 L Respiratory Rate Blood Pressure Pulse Oximetry Oxygen Delivery Room Air Intake/Output Intake/Output: Intake & Output 03/16/25 03/17/25 03/18/25 03/19/25 23:59 23:59 23:59 23:59 Intake Total 1436 1010 480 Output Total 200 Balance 1236 1010 480 Meds/Results Medications: Active Medications Generic Name Dose Route Start Last Admin Trade Name Freq PRN Reason Stop Dose Admin Apixaban 5 mg 03/19/25 21:00 Apixaban 5 Mg Tablet PO Q12HR [facility] Atorvastatin Calcium 40 mg 03/17/25 09:00 03/19/25 09:22 Atorvastatin 40 Mg Tablet PO 40 mg DAILY BREANNA Administration Cyanocobalamin 3,000 mcg 03/17/25 09:00 03/19/25 09:21 Cyanocobalamin 1,000 Mcg Tablet PO 3,000 mcg DAILY BREANNA Administration Enoxaparin Sodium 40 mg 03/18/25 09:00 03/19/25 09:30 Enoxaparin 40 Mg/0.4 Ml Syringe SUB-Q Not Given DAILY BREANNA Hydralazine HCl 10 mg 03/17/25 05:15 Hydralazine Hcl 20 Mg/Ml Vial IV PUSH Q8H PRN Blood Pressure - High Hydrochlorothiazide 12.5 mg 03/18/25 09:00 03/19/25 09:21 Hydrochlorothiazide 12.5 Mg Capsule PO 12.5 mg QAM BREANNA Administration Isosorbide Mononitrate 30 mg 03/17/25 09:00 03/19/25 09:21 Isosorbide Mononitrate 30 Mg Tab.Er.24h PO 30 mg DAILY BREANNA Administration Lorazepam 1 mg 03/17/25 05:09 03/17/25 11:35 Lorazepam (*Crx) 1 Mg Tablet PO 1 mg BID PRN Administration Anxiety Losartan Potassium 50 mg 03/17/25 09:00 03/19/25 09:22 Losartan Potassium 50 Mg Tablet PO 50 mg DAILY BREANNA Administration Metoprolol Succinate 25 mg 03/18/25 21:00 03/18/25 21:19 Metoprolol Succinate Ext Rel 25 Mg Tabcr PO 25 mg HS BREANNA Administration Nitroglycerin 0.4 mg 03/17/25 05:09 Nitroglycerin Sl 0.4 Mg Tablet SUBLINGUAL Q5M PRN Chest Pain Oxybutynin Chloride 5 mg 03/17/25 09:00 03/19/25 09:22 Oxybutynin Chloride Xl 5 Mg Tab.Er.24 PO 5 mg DAILY BREANNA Administration Perflutren Lipid Microsphere 0 ml 03/17/25 05:25 Perflutren Lipid Microspheres 1.5 Ml Vial Diluted To 10 Ml Total Volume IV PUSH 03/20/25 05:25 ONCE PRN adequate visualization Protocol Timolol Maleate 1 drop 03/17/25 09:00 03/19/25 09:21 Timolol Maleate 0.5% Op Soln 5 Ml Bottle EACH EYE 1 drop DAILY BREANNA Administration Vitamin D 50 mcg 03/17/25 09:00 03/19/25 09:22 Cholecalciferol (Vitamin D3) 25 Mcg (1,000 Units) Tablet PO 50 mcg DAILY BREANNA Administration Radiology Results: ITS Impressions Head CT 03/17/25 07:55 IMPRESSION: 1. Normal aging brain. Carotid Doppler Study 03/17/25 10:44 IMPRESSION: 1. No hemodynamically significant ICA stenosis (i.e., if any stenosis, less than 50%). 2. Normal bilateral antegrade vertebral artery flow. Stenosis measured by Society of Radiologists in Ultrasound (SRU) criteria. Brain MRI 03/17/25 12:02 IMPRESSION: 1. 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 No acute intracranial process. Chest X-Ray 03/17/25 14:45 IMPRESSION: 1. No acute cardiopulmonary findings. Labs Labs: Laboratory Results - last 24 hr 03/19/25 04:43 WBC 5.4 RBC 4.93 Hgb 14.1 Hct 43.4 MCV 88.0 MCH 28.6 MCHC 32.5 RDW 13.6 Plt Count 171 MPV 10.7 H Immature Gran % (Auto) 0.2 Neut % (Auto) 63.8 Lymph % (Auto) 24.8 [place] % (Auto) 7.8 Eos % (Auto) 2.8 Baso % (Auto) 0.6 Lymph # (Auto) 1.33 [place] # (Auto) 0.4 Eos # (Auto) 0.2 Baso # (Auto) 0.0 Abs Immat Gran (auto) 0.01 Absolute Neuts (auto) 3.4 Absolute Nucleated RBC 0.000 Nucleated RBC % 0.0 Sodium 137 Potassium 3.6 Chloride 102 Carbon Dioxide 30 Anion Gap 5 BUN 18 Creatinine 0.84 Estim Creat Clear Calc 74 Estimated GFR > 60 Glucose 91 Calcium 8.8 Magnesium 1.9 Total Bilirubin 0.7 AST 30 ALT 24 Alkaline Phosphatase 83 Total Protein 6.5 Albumin 3.8
--- NOTE | 2025-03-19 15:19 | P.DS_ITS ---
DS: Admitting Diagnosis Discharge Date 03/19/2025 Admitting Diagnosis Dizziness DS: Discharge Diagnosis Discharge Diagnosis (1) Dizziness: Code(s): R42 - Dizziness and giddiness Status: Acute DS: Summary Hospital Course Hospital Course: HPI per admitting provider : This is a 70-year-old male patient with a history of hypertension and anxiety who presented to the emergency room with complaints of dizziness. The patient stated he was sitting in his chair at home when he initially felt dizzy. The patient stated that his blood pressure was elevated and he took his anti anxiety medication. He stated that the anxiety medication helps when his blood pressure is elevated. The patient stated he felt dizzy when his blood pressure was elevated. The patient's symptoms had essentially resolved however he visited a local urgent care and they sent him to the emergency room to rule out a stroke. The patient had no focal weakness. The patient was complaining of some right- sided sciatica pain and was having difficulty walking due to the discomfort. His NIH stroke score is 0. The patient is moving all extremities and ambulating without difficulty. The ER physician as well as myself had a long discussion with the patient, we discussed that the neurologist will be unavailable over the weekend. The patient does not meet criteria for tPA or any other intervention. The patient declined transfer to tertiary care for further evaluation from a neurologist. Patient stated he understands that he would not be evaluated by a neurologist here at [facility]. ER physician reported that this CT of the head was negative for CVA. The patient is being admitted to observation status on the date of service of 03/17 MRI showed old small infarcts in the left cerebellar hemisphere. ECHO showed Grade I diastolic dysfunction with PFO with R to L shunting . Ysmptoms resolved with improvement in Blood pressure, Blood pressure today in 120s/80s after introducing HCTZ 12.5mg. Patient no focal deficits. LE Venous Doppler negative for DVT, i discussed with cardiology and recommended Eliquis for PFO, Plavix discontinued and patient will follow up with primary cardiology at [facility] for possible PFO closure. Also cardiology evaluated bradycardia and deemed it asymptomatic and not likely resposible for patient's symptoms, thus recommended continuing Metoprolol which he deemed low dose. Patient discharged on current Metoprolol. F/u with PCP in 3-5 days F/u with primary cardiology for possible PFO closure consideration. Time Spent with Patient Time attestation: Total time spent providing and/or coordinating discharge services: DS: Data Data Completed and Pending Labs on day of discharge: Labs from last 24 hours 03/19/25 04:43 WBC 5.4 RBC 4.93 Hgb 14.1 Hct 43.4 MCV 88.0 MCH 28.6 MCHC 32.5 RDW 13.6 Plt Count 171 MPV 10.7 H Immature Gran % (Auto) 0.2 Neut % (Auto) 63.8 Lymph % (Auto) 24.8 [place] % (Auto) 7.8 Eos % (Auto) 2.8 Baso % (Auto) 0.6 Lymph # (Auto) 1.33 [place] # (Auto) 0.4 Eos # (Auto) 0.2 Baso # (Auto) 0.0 Abs Immat Gran (auto) 0.01 Absolute Neuts (auto) 3.4 Absolute Nucleated RBC 0.000 Nucleated RBC % 0.0 Sodium 137 Potassium 3.6 Chloride 102 Carbon Dioxide 30 Anion Gap 5 BUN 18 Creatinine 0.84 Estim Creat Clear Calc 74 Estimated GFR > 60 Glucose 91 Calcium 8.8 Magnesium 1.9 Total Bilirubin 0.7 AST 30 ALT 24 Alkaline Phosphatase 83 Total Protein 6.5 Albumin 3.8 Discharge Plan Discharge Attending physician on discharge: Zeny Aguirre Consulting providers: Niko Good Discharging Clinician: Zeny Aguirre Anticipated Discharge Date/Time: 03/19/25 15:13 Patient Disposition: Home Activity: as tolerated Diet: as tolerated and heart healthy Discharge Instructions: Patient will follow with primary cardiology at [facility] for possible PFO closure Patient Instructions: Antibiotic Form, Clopidogrel (By mouth) Patient Language: Armenian Stand Alone Forms: General Discharge Information Follow-up/Referrals: Niko Good MD [Physician, Cardiology] Referral Note: F/u with cardiology as instructed Stef Hi MD [Primary Care Provider, Family Practice] Referral Note: F/u with PCP in 3-5 days Discharge Medications: New Eliquis 5 mg Tablet 5 mg PO Q12HR 30 Days Qty: 60 1RF hydrochlorothiazide 12.5 mg Capsule 12.5 mg PO QAM 30 Days Qty: 30 1RF aspirin 81 mg capsule 81 mg PO DAILY 30 Days Qty: 30 0RF Continued isosorbide mononitrate 30 mg tablet extended release 24 hr 30 mg PO DAILY nitroglycerin [Nitrostat] 0.4 mg tablet, sublingual 0.4 mg SUBLINGUAL Q5M PRN (Reason: chest pain) coenzyme Q10 [CoQ-10] 100 mg capsule 200 mg PO DAILY lutein 20 mg capsule 20 mg PO DAILY Patient Comments: TAKES EVERY OTHER DAY Rx Instructions: give with meal/snack cholecalciferol (vitamin D3) 50 mcg (2,000 unit) capsule 50 mcg PO DAILY Patient Comments: TAKES EVERY OTHER DAY lorazepam 1 mg tablet 1 mg PO BID PRN (Reason: anxiety) Qty: 60 0RF timolol 0.5 % drops 1 drp EACH EYE DAILY metoprolol succinate 25 mg tablet extended release 24 hr 25 mg PO DAILY oxybutynin chloride 5 mg tablet extended release 24hr 5 mg PO DAILY cyanocobalamin (vitamin B-12) 1,000 mcg tablet 3,000 mcg PO DAILY losartan 50 mg tablet 50 mg PO DAILY Qty: 90 1RF atorvastatin 40 mg tablet 40 mg PO DAILY Qty: 90 1RF Discontinued clopidogrel 75 mg tablet 75 mg PO DAILY Date of admission: 03/18/25 17:19 Primary Care Provider: Stef Hi Admitting Provider: Zeny Aguirre Attending physician on admission: Zeny Aguirre Condition: Stable
== END 2025-03-19 15:45 | disposition home or self-care (01) | DRG 149 ==
LOC: ANHED 03-17 03:54 → ANH2MED 03-17 04:24
PROVIDERS: Nurse Practitioner; Admitting Provider Internal Medicine; Emergency Provider Emergency Medicine; PCP Family Medicine; Visit Provider Internal Medicine
DX: R42 Dizziness and giddiness (principal); Q21.12 Patent foramen ovale; I10 Essential (primary) hypertension; R00.1 Bradycardia, unspecified; F41.9 Anxiety disorder, unspecified; R26.81 Unsteadiness on feet; R73.03 Prediabetes; I51.89 Other ill-defined heart diseases; M54.31 Sciatica, right side; K21.9 Gastro-esophageal reflux disease without esophagitis; I25.10 Atherosclerotic heart disease of native coronary artery without angina pectoris; E78.5 Hyperlipidemia, unspecified; H40.9 Unspecified glaucoma; N40.1 Benign prostatic hyperplasia with lower urinary tract symptoms; R39.14 Feeling of incomplete bladder emptying; Z90.49 Acquired absence of other specified parts of digestive tract; Z87.891 Personal history of nicotine dependence; Z79.02 Long term (current) use of antithrombotics/antiplatelets; Z86.73 Personal history of transient ischemic attack (TIA), and cerebral infarction without residual deficits
CPT/HCPCS: 36415; 70450; 70551; 71046; 80048; 80053; 83735; 84484; 85025; 92523; 93005; 93306; 93880; 93970; 96375; 97110; 97161; 97165; 99285; A9270; G0378

== ENCOUNTER 2025-03-29 16:34 | Emergency (ER) | payer MEDICARE, SELFPAY ==
--- NOTE | ~2025-03-29 | XR_ITS ---
XR lumbar spine min 4V Indication: lt sciatic pain x 3 wks, atraumatic Comparison: None Findings: Dextroconvex scoliosis. Moderate loss of vertebral height throughout. Grade 1 anterolisthesis of L4 on L5, grade 1 retrolisthesis L2 on L3 and L3 on L4, no acute fracture. Moderate to severe loss of disc height throughout. Soft tissues unremarkable Impression: No acute abnormality. Reviewed, dictated and finalized at location P. Impression: No acute abnormality.
--- NOTE | 2025-03-29 16:40 | ED.GENADULT ---
HPI - General Adult General Chief complaint: Back Pain/Injury Stated complaint: L side body pain Source: patient Mode of arrival: ambulatory Limitations: no limitations History of Present Illness HPI narrative: Pt is a a 70 yo male presenting with c/o lower back pain x 3 weeks. He denies any known trauma but does admit to frequent gardening while seated on a stool and thinks he may have stretched too far. He reports his PCP ordered pain management referral yesterday however, noone has contacted me yet. He denies any radiation of pain into extremities. He denies any bowel/bladder incontinence. He denies any urinary retention. Aggravating factors include laying down at night, changing from seated to standing position. Reports pain is preventing him from sleeping at night. Tx initiated ORTHOTIC TECHNICIAN includes tylenol without improvement in sx. No additional complaints. Related Data Home Medications ?Medication ?Instructions ?Recorded ?Confirmed ?Last Taken ?Type isosorbide mononitrate 30 mg 30 mg PO DAILY 05/12/19 03/21/25 Unknown History tablet,extended release 24 hr nitroglycerin 0.4 mg sublingual 0.4 mg sublingual Q5M PRN chest 05/12/19 03/21/25 Unknown History tablet (Nitrostat) pain cholecalciferol (vitamin D3) 50 50 mcg PO DAILY 09/30/23 03/21/25 Unknown History mcg (2,000 unit) capsule coenzyme Q10 100 mg capsule 200 mg PO DAILY 09/30/23 03/21/25 Unknown History (CoQ-10) lutein 20 mg capsule 20 mg PO DAILY 09/30/23 03/21/25 Unknown History timolol 0.5 % eye drops 1 drp EACH EYE DAILY 09/30/23 03/21/25 Unknown History metoprolol succinate 25 mg 25 mg PO DAILY 01/03/25 03/21/25 Unknown History tablet,extended release 24 hr cyanocobalamin (vitamin B-12) 3,000 mcg PO DAILY 03/17/25 03/21/25 Unknown History 1,000 mcg tablet Allergies Allergy/AdvReac Type Severity Reaction Status Date / Time tadalafil Allergy Severe Visual Verified 03/29/25 16:45 side effects SHAWNA Inhibitors Allergy Unknown Cough Verified 03/29/25 16:45 hydrocodone Allergy Unknown Spider Verified 03/29/25 16:45 webs on face Review of Systems Review of Systems: CONSTITUTIONAL: Denies body aches, fever, chills, or sweats. EYES: Denies visual changes, redness, or discharge. ENT: Denies rhinorrhea, congestion, sore throat, or otalgia. CARDIOVASCULAR: Denies chest pain, palpitations, or edema. RESPIRATORY: Denies cough or dyspnea. GASTROINTESTINAL: Denies abdominal pain, nausea, vomiting, or diarrhea. GENITOURINARY: Denies dysuria or hematuria. SKIN: Denies rash, itching, or wounds. MUSCULOSKELETAL: Reports low back pain, denies joint pain, or myalgia. NEUROLOGIC: Denies headache, numbness, tingling, or weakness. PSYCH: Denies depression or anxiety. All systems reviewed & are unremarkable except as noted in HPI and below PMFSH Past Medical History Medical History (Updated 03/29/25 @ 18:00 by Thom Turcios APRN) Sciatica Glaucoma Screening for AAA (abdominal aortic aneurysm) Global amnesia Chronic stable angina Blockage of coronary artery of heart Patellofemoral syndrome of left knee Medial meniscus tear Left knee pain Fatigue Prediabetes Spondylosis Ocular hypertension Chronic pain of both shoulders Essential (primary) hypertension Gastro-esophageal reflux disease without esophagitis Major depressive disorder, single episode, unspecified Blas's neuroma of left foot Surgical History Surgical History (Updated 03/17/25 @ 05:12 by Nidhi Rebolledo APRN) H/O bilateral cataract extraction Hx of cholecystectomy H/O hernia repair Family History Family History Mother Family history of coronary artery disease Hypertension Cerebrovascular accident Arthritis Father No family history of cardiovascular disease Diabetes mellitus Sibling No family history of cardiovascular disease Other Family history of congenital heart disease Social History Social History (Updated 03/17/25 @ 05:15 by Nidhi Rebolledo APRN) Social History: The patient lives home alone he is . He has 2 children. 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 His son is the power of county attorney for healthcare. Code status: Full code Smoking packs per day: 1.5 Smoking cigarettes per day: 30.0 Years smoked: 14 Smoking pack-years: 21.00 Smoking status: Former smoker Second hand tobacco smoke exposure: No Smoking end date: 06/29/86 Alcohol intake: never Substance use: never Substance use type: does not use Lack of Transportation: No Lack of Food: Never True Current Housing: I Have Housing Concerned About Future Housing: No Difficulty Paying Gas/Electric Bills: No Difficulty Paying for Meds: No Currently Unemployed: No Education: Master's Degree or Higher Difficulty w/ Childcare or Family Care: No Living arrangements: with family Occupation/Education: retired Sexual Orientation (if Verbalized by the Patient): Straight or Heterosexual Spiritual care concerns: No Exam Narrative: GENERAL: Well-appearing, well-nourished, and in no acute distress. HEAD: Normocephalic, atraumatic. EYES: EOMI. No redness or drainage. Conjunctivae normal. ENT: Mucous membranes pink and moist. NECK: Normal AROM. Supple. CHEST: No respiratory distress. HEART: Regular rate Normal peripheral pulses. ABDOMEN: Soft, nontender, nondistended, normal active bowel sounds. MUSCULOSKELETAL: +TTP over the lumbar spine, negative SLR bilaterally. EXTREMITIES: Normal range of motion. No edema. No evidence of saddle anesthesia. SKIN: Warm, dry, no rash. Capillary refill normal. Normal skin turgor. NEURO: No focal deficits. Alert and oriented x3. Gait steady. PSYCH: Normal affect. No signs of depression or anxiety. Course Course Emergency Course: No red flags on exam. Crossing his legs, Left over right, throughout the time I spent in the exam room, knee to chest position without asking without pain. Encouraged f/u with PCP and request a referral to PT. Discussed elevated blood pressure readings with patient and advised daily BP monitoring and f/u with PCP if persisting. Level of Care: Express Care Visit Vital Signs Vital signs: Vital Signs Temperature 97.4 F L 03/29/25 16:45 Pulse Rate 60 03/29/25 16:45 Respiratory Rate 16 03/29/25 16:45 Blood Pressure 140/98 H 03/29/25 16:45 Pulse Oximetry 99 03/29/25 16:45 Temperature 97.4 F L 03/29/25 16:45 Pulse Rate 60 03/29/25 16:45 Respiratory Rate 16 03/29/25 16:45 Blood Pressure 140/98 H 03/29/25 16:45 Pulse Oximetry 99 03/29/25 16:45 Medical Decision Making Vital Signs Vital Signs: Vital Signs Temperature 97.4 F L 03/29/25 16:45 Pulse Rate 60 03/29/25 16:45 Respiratory Rate 16 03/29/25 16:45 Blood Pressure 140/98 H 03/29/25 16:45 Pulse Oximetry 99 03/29/25 16:45 Temperature 97.4 F L 03/29/25 16:45 Pulse Rate 60 03/29/25 16:45 Respiratory Rate 16 03/29/25 16:45 Blood Pressure 140/98 H 03/29/25 16:45 Pulse Oximetry 99 03/29/25 16:45 Imaging Data Radiologist's impression: NAF Discharge Plan Discharge Clinical Impression: Anterolisthesis of lumbar spine, Dextroscoliosis, Essential (primary) hypertension Low back pain Qualifiers: Chronicity: acute Back pain laterality: midline Sciatica presence: without sciatica Qualified Code(s): M54.50 - Low back pain, unspecified Patient Disposition: Home Condition: Stable Instructions: Acute Low Back Pain (ED), Lower Back Exercises (ED) Additional Instructions: Call your doctor tomorrow and request a referral to physical therapy Go straight to ER should your symptoms become worse or should any new symptoms develop Patient Language: Bulgarian Prescriptions: New cyclobenzaprine 10 mg tablet 10 mg PO HS PRN (Reason: muscle spasm) Qty: 10 0RF No Action isosorbide mononitrate 30 mg tablet extended release 24 hr 30 mg PO DAILY nitroglycerin [Nitrostat] 0.4 mg tablet, sublingual 0.4 mg SUBLINGUAL Q5M PRN (Reason: chest pain) fluticasone propionate [Flonase Allergy Relief] 50 mcg/actuation spray,suspension 2 spray intranasal DAILY Qty: 16 2RF Rx Instructions: administer into each nostril meclizine 25 mg tablet 25 mg PO TID PRN (Reason: dizziness) Qty: 30 0RF coenzyme Q10 [CoQ-10] 100 mg capsule 200 mg PO DAILY lutein 20 mg capsule 20 mg PO DAILY Patient Comments: TAKES EVERY OTHER DAY Rx Instructions: give with meal/snack cholecalciferol (vitamin D3) 50 mcg (2,000 unit) capsule 50 mcg PO DAILY Patient Comments: TAKES EVERY OTHER DAY lorazepam 1 mg tablet 1 mg PO BID PRN (Reason: anxiety) Qty: 60 0RF timolol 0.5 % drops 1 drp EACH EYE DAILY metoprolol succinate 25 mg tablet extended release 24 hr 25 mg PO DAILY cyanocobalamin (vitamin B-12) 1,000 mcg tablet 3,000 mcg PO DAILY hydrochlorothiazide 12.5 mg Capsule 12.5 mg PO QAM 30 Days Qty: 30 1RF Eliquis 5 mg Tablet 5 mg PO Q12HR 30 Days Qty: 60 1RF aspirin 81 mg capsule 81 mg PO DAILY 30 Days Qty: 30 0RF losartan 50 mg tablet 50 mg PO DAILY Qty: 90 1RF atorvastatin 40 mg tablet 40 mg PO DAILY Qty: 90 1RF oxybutynin chloride 5 mg tablet extended release 24hr 5 mg PO DAILY Qty: 90 0RF Follow-up/Referrals: Stef Hi MD [Primary Care Provider, Family Practice] - 03/30/25 Time of Disposition: 17:52
[2025-03-29 16:45] VITALS: BP 140/98; PULSE 60; RESP 16; TEMP 36.3; O2SAT 99
== END 2025-03-29 18:00 | disposition home or self-care (01) ==
PROVIDERS: Emergency Provider Registered Nurse; PCP Family Medicine
DX: M43.16 Spondylolisthesis, lumbar region (principal); M41.9 Scoliosis, unspecified; I10 Essential (primary) hypertension; M54.50 Low back pain, unspecified; Z87.891 Personal history of nicotine dependence; H40.9 Unspecified glaucoma; R73.03 Prediabetes; K21.9 Gastro-esophageal reflux disease without esophagitis; Z79.01 Long term (current) use of anticoagulants; Z79.82 Long term (current) use of aspirin
CPT/HCPCS: 72110; 99213; G0463

== ENCOUNTER 2025-04-05 18:38 | Emergency (ER) | payer MEDICARE, SELFPAY ==
--- NOTE | 2025-04-05 18:42 | ED_ITS ---
HPI - General Adult General Chief complaint: Extremity Problem,Nontraumatic Stated complaint: severe pain sciatic Source: patient Mode of arrival: ambulatory Limitations: no limitations History of Present Illness HPI narrative: Pt is a 70 y/o male presenting with c/o severe pain, sciatic. Pt reports L. lower back pain x 1 month, improved after his visit here last week but became worse after doing some exercises today. He also reports pain to the lateral/posterior aspect of his L. calf, lightheadedness, and feeling out of it. Denies bowel/bladder incontinence. Denies urinary retention. No CP, SOB, blood in stool. 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 NO additional complaints. Related Data Home Medications ?Medication ?Instructions ?Recorded ?Confirmed ?Last Taken ?Type isosorbide mononitrate 30 mg 30 mg PO DAILY 05/12/19 0 03/21/25 Unknown History tablet,extended release 24 hr nitroglycerin 0.4 mg sublingual 0.4 mg sublingual Q5M PRN chest 05/12/19 03/21/25 Unknown History tablet (Nitrostat) pain cholecalciferol (vitamin D3) 50 50 mcg PO DAILY 03/21/25 Unknown History mcg (2,000 unit) capsule coenzyme Q10 100 mg capsule 200 mg PO DAILY 09/30/23 0 03/21/25 Unknown History (CoQ-10) lutein 20 mg capsule 20 mg PO DAILY 09/30/2302/28 Unknown History timolol 0.5 % eye drops 1 drp EACH EYE DAILY 4 03/21/25 Unknown History metoprolol succinate 25 mg 25 mg PO DAILY 01/03/25 Unknown History tablet,extended release 24 hr cyanocobalamin (vitamin B-12) 3,000 mcg PO DAILY 03/1703/21/25 Unknown History 1,000 mcg tablet Allergies Allergy/AdvReac Type Severity Reaction Status Date / Time tadalafil Allergy Severe Visual Verified 03/29/25 16:45 side effects SHAWNA Inhibitors Allergy Unknown Cough Verified 03/29/25 16:45 hydrocodone Allergy Unknown Spider Verified 03/29/25 16:45 webs on face Review of Systems Review of Systems: CONSTITUTIONAL: Denies body aches, fever, chills, or sweats. EYES: Denies visual changes, redness, or discharge. ENT: Denies rhinorrhea, congestion, sore throat, or otalgia. CARDIOVASCULAR: Denies chest pain, palpitations, or edema. RESPIRATORY: Denies cough or dyspnea. GASTROINTESTINAL: Denies abdominal pain, nausea, vomiting, or diarrhea. Denies bowel incontinence. GENITOURINARY: Denies dysuria or hematuria. Denies urinary retention, incontinence. SKIN: Denies rash, itching, or wounds. MUSCULOSKELETAL: Reports back pain, L. calf pain NEUROLOGIC: Reports feeling out of it, lightheaded/dizzy. Denies headache, numbness, tingling, or weakness. PSYCH: Denies depression or anxiety. All systems reviewed & are unremarkable except as noted in HPI and below [facility] Past Medical History Medical History (Updated 04/05/25 @ 19:09 by Thom Turcios APRN) Sciatica Glaucoma Screening for AAA (abdominal aortic aneurysm) Global amnesia Chronic stable angina Blockage of coronary artery of heart Patellofemoral syndrome of left knee Medial meniscus tear Left knee pain Fatigue Prediabetes Spondylosis Ocular hypertension Chronic pain of both shoulders Essential (primary) hypertension Gastro-esophageal reflux disease without esophagitis Major depressive disorder, single episode, unspecified Blas's neuroma of left foot Surgical History Surgical History (Updated 03/17/25 @ 05:12 by Nidhi Rebolledo APRN) H/O bilateral cataract extraction Hx of cholecystectomy H/O hernia repair Family History Family History Mother Family history of coronary artery disease Hypertension Cerebrovascular accident Arthritis Father No family history of cardiovascular disease Diabetes mellitus Sibling No family history of cardiovascular disease Other Family history of congenital heart disease Social History Social History (Updated 03/17/25 @ 05:15 by Nidhi Rebolledo APRN) Social History: The patient lives home alone he is . He has 2 children. 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 His son is the power of workers compensation defense attorney for healthcare. Code status: Full code Smoking packs per day: 1.5 Smoking cigarettes per day: 30.0 Years smoked: 14 Smoking pack-years: 21.00 Smoking status: Former smoker Second hand tobacco smoke exposure: No Smoking end date: 06/29/86 Alcohol intake: never Substance use: never Substance use type: does not use Lack of Transportation: No Lack of Food: Never True Current Housing: I Have Housing Concerned About Future Housing: No Difficulty Paying Gas/Electric Bills: No Difficulty Paying for Meds: No Currently Unemployed: No Education: Master's Degree or Higher Difficulty w/ Childcare or Family Care: No Living arrangements: with family Occupation/Education: retired Sexual Orientation (if Verbalized by the Patient): Straight or Heterosexual Spiritual care concerns: No Exam Narrative: GENERAL: Well-appearing, well-nourished, and in no acute distress. HEAD: Normocephalic, atraumatic. EYES: EOMI. No redness or drainage. Conjunctivae normal. ENT: Mucous membranes pink and moist. NECK: Normal AROM. Supple. CHEST: No respiratory distress. HEART: Regular rate. Normal peripheral pulses. MUSCULOSKELETAL: mild TTP to the immediate left of the lumbar spine. NO evidence of saddle anesthesia EXTREMITIES: Normal range of motion. No edema. SKIN: Warm, dry, no rash. Capillary refill normal. Normal skin turgor. NEURO: No focal deficits. Alert and oriented x3. Gait steady. PSYCH: Normal affect. No signs of depression or anxiety. Course Course Emergency Course: I evaluated this pt last week after he presented with low back pain, x-rays completed, given Rx for muscle relaxer, f/u with PCP. Compared to last week, the patient is slower to respond and his skin is pale. He did not report any leg pain, dizziness or lightheadedness last week. Given the aforementioned, I recommended the patient be transferred to ER of his choice for further diagnostic work up. Level of Care: Express Care Visit Vital Signs Vital signs: Vital Signs Temperature 96.2 F L 04/05/25 18:51 Pulse Rate 68 04/05/25 18:51 Respiratory Rate 16 04/05/25 18:51 Blood Pressure 176/115 H 04/05/25 18:51 Pulse Oximetry 98 04/05/25 18:51 Temperature 96.2 F L 04/05/25 18:51 Pulse Rate 68 04/05/25 18:51 Respiratory Rate 16 04/05/25 18:51 Blood Pressure 176/115 H 04/05/25 18:51 Pulse Oximetry 98 04/05/25 18:51 Transfer Transfered to: [place] Transportation: Other (private vehicle operated by his son) Transfer rationale: Access to higher level of care/further diagnostic work up Accepting physician: Garrett Valenzuela comments: Aware of NPO status. GO straight to ER. Medical Decision Making Vital Signs Vital Signs: Vital Signs Temperature 96.2 F L 04/05/25 18:51 Pulse Rate 68 04/05/25 18:51 Respiratory Rate 16 04/05/25 18:51 Blood Pressure 176/115 H 04/05/25 18:51 Pulse Oximetry 98 04/05/25 18:51 Temperature 96.2 F L 04/05/25 18:51 Pulse Rate 68 04/05/25 18:51 Respiratory Rate 16 04/05/25 18:51 Blood Pressure 176/115 H 04/05/25 18:51 Pulse Oximetry 98 04/05/25 18:51 Discharge Plan Discharge Clinical Impression: Light-headedness, Leg pain, left, Essential (primary) hypertension Low back pain Qualifiers: Chronicity: acute Back pain laterality: left Sciatica presence: without sciatica Qualified Code(s): M54.50 - Low back pain, unspecified Patient Disposition: Acute Care Hospital Condition: Stable Patient Language: Hong Konger Prescriptions: No Action cyclobenzaprine 10 mg tablet 10 mg PO HS PRN (Reason: muscle spasm) Qty: 10 0RF isosorbide mononitrate 30 mg tablet extended release 24 hr 30 mg PO DAILY nitroglycerin [Nitrostat] 0.4 mg tablet, sublingual 0.4 mg SUBLINGUAL Q5M PRN (Reason: chest pain) fluticasone propionate [Flonase Allergy Relief] 50 mcg/actuation spray,suspension 2 spray intranasal DAILY Qty: 16 2RF Rx Instructions: administer into each nostril meclizine 25 mg tablet 25 mg PO TID PRN (Reason: dizziness) Qty: 30 0RF coenzyme Q10 [CoQ-10] 100 mg capsule 200 mg PO DAILY lutein 20 mg capsule 20 mg PO DAILY Patient Comments: TAKES EVERY OTHER DAY Rx Instructions: give with meal/snack cholecalciferol (vitamin D3) 50 mcg (2,000 unit) capsule 50 mcg PO DAILY Patient Comments: TAKES EVERY OTHER DAY lorazepam 1 mg tablet 1 mg PO BID PRN (Reason: anxiety) Qty: 60 0RF timolol 0.5 % drops 1 drp EACH EYE DAILY metoprolol succinate 25 mg tablet extended release 24 hr 25 mg PO DAILY cyanocobalamin (vitamin B-12) 1,000 mcg tablet 3,000 mcg PO DAILY hydrochlorothiazide 12.5 mg Capsule 12.5 mg PO QAM 30 Days Qty: 30 1RF Eliquis 5 mg Tablet 5 mg PO Q12HR 30 Days Qty: 60 1RF aspirin 81 mg capsule 81 mg PO DAILY 30 Days Qty: 30 0RF atorvastatin 40 mg tablet 40 mg PO DAILY Qty: 90 1RF oxybutynin chloride 5 mg tablet extended release 24hr 5 mg PO DAILY Qty: 90 0RF methylprednisolone [Medrol (Jimbo)] 4 mg tablets,dose pack See Rx Instructions PO PER PKG DIR Qty: 21 0RF Rx Instructions: PO PER PKG DIR losartan 50 mg tablet See Rx Instructions .ROUTE .COMPLEX Qty: 90 0RF Dose Instruction: TAKE 1 TABLET BY MOUTH DAILY Rx Instructions: TAKE 1 TABLET BY MOUTH DAILY Follow-up/Referrals: Stef Hi MD [Primary Care Provider, Family Practice] Time of Disposition: 18:59
[2025-04-05 18:51] VITALS: BP 176/115; PULSE 68; RESP 16; TEMP 35.7; O2SAT 98
== END 2025-04-05 19:00 | disposition short-term general hospital (02) ==
PROVIDERS: Emergency Provider Registered Nurse; PCP Family Medicine
DX: R42 Dizziness and giddiness (principal); M79.662 Pain in left lower leg; I10 Essential (primary) hypertension; M54.50 Low back pain, unspecified; I25.10 Atherosclerotic heart disease of native coronary artery without angina pectoris; H40.9 Unspecified glaucoma; R73.03 Prediabetes; K21.9 Gastro-esophageal reflux disease without esophagitis; Z79.01 Long term (current) use of anticoagulants; Z79.82 Long term (current) use of aspirin; Z87.891 Personal history of nicotine dependence
CPT/HCPCS: 99213; G0463

== ENCOUNTER 2025-04-05 19:22 | Emergency (ER) | payer MEDICARE, SELFPAY ==
--- NOTE | ~2025-04-05 | CT_ITS ---
EXAMINATION: CT lumbar spine wo con COMPARISON: None HISTORY: L pain; suspect sciatica but age TECHNIQUE: Axial images were obtained through the spine without IV contrast. Coronal, sagittal reconstruction images were obtained from the axial views. CT scan performed using dose optimization techniques including the following automated exposure control; adjustment of mA and/or kV; use of iterative reconstruction technique. Automatic exposure control was used to reduce radiation dose. Permanent radiation dose record is archived to PACS. FINDINGS: Mild levoconvex scoliosis. Grade 1 retrolisthesis of L1 on L2, L2 on L3 and L3 on L4 with grade 1 anterolisthesis of L4 on L5. Moderate loss of disc height throughout with multilevel mild to moderate canal and foraminal stenosis. Soft tissues probable duodenal diverticulum 2 x 2 cm, simple appearing left peripelvic renal cysts, the bladder appears distended with bladder diverticula and multiple bladder calculi the largest measuring 5 x 6 mm, CT urogram is suggested. Impression: 1. No acute fracture. Incidental findings above Reviewed, dictated and finalized at location P. Impression: 1. No acute fracture. Incidental findings above
[2025-04-05 19:28] VITALS: BP 175/92; PULSE 66; RESP 18; TEMP 36.6; O2SAT 98
--- NOTE | 2025-04-05 23:24 | ED.BACK ---
HPI - Back Pain/Injury General Chief Complaint: Back Pain/Injury Stated Complaint: left sciatic nerve pain, dizzy Time Seen by Provider: 04/05/25 22:27 Source: patient Mode of arrival: ambulatory Limitations: no limitations History of Present Illness HPI Narrative: Patient presents with report left low back pain. This has been occurring approximately month. He has a history of sciatica occurring once in the 1980s. He is on history of a PFO. His physician is Dr Parker through [facility]. he had 1st gone urgent care. He has been walking okay. When he attempted to perform some of the low back/pelvic exercises that had been recommended to him he seemed to have worse pain and became lightheaded. He has been using time as well as Advil. He had discussed the Advil usage with Cardiology who had said it was okay as long as he took it with Nexium. He received prescription muscle relaxer at the urgent care. Initially pain was 4/10 severity although the time my examination patient denies having any pain. However, he does report that he has persistently had a dull achy pain in the posterior lateral aspect of left calf and into the foot. His toes are sometimes numb as well although not particular areas involved/spared. He denies any paresthesias or saddle anesthesia. No incontinence of bowel. Denies any flank pain no dysuria hematuria abdominal pain. No direct trauma although possibly related to repetitive movements, had been bending over pulling weeds and/or slouching. He is on a Medrol Dosepak. Denies history of malignancy or intravenous drug use. No fevers or chills. No syncope. He reports having difficulty sleeping although not due to pain. Frequently taking sips of Diet Pepsi, says the oxybutynin that he is on gives him dry mouth. Related Data Home Medications ?Medication ?Instructions ?Recorded ?Confirmed ?Last Taken ?Type isosorbide mononitrate 30 mg 30 mg PO DAILY 05/12/19 03/21/25 Unknown History tablet,extended release 24 hr nitroglycerin 0.4 mg sublingual 0.4 mg sublingual Q5M PRN chest 05/12/19 03/21/25 Unknown History tablet (Nitrostat) pain cholecalciferol (vitamin D3) 50 50 mcg PO DAILY 09/30/23 03/21/25 Unknown History mcg (2,000 unit) capsule coenzyme Q10 100 mg capsule 200 mg PO DAILY 09/30/23 03/21/25 Unknown History (CoQ-10) lutein 20 mg capsule 20 mg PO DAILY 09/30/23 03/21/25 Unknown History timolol 0.5 % eye drops 1 drp EACH EYE DAILY 09/30/23 03/21/25 Unknown History metoprolol succinate 25 mg 25 mg PO DAILY 01/03/25 03/21/25 Unknown History tablet,extended release 24 hr cyanocobalamin (vitamin B-12) 3,000 mcg PO DAILY 03/17/25 03/21/25 Unknown History 1,000 mcg tablet Allergies Allergy/AdvReac Type Severity Reaction Status Date / Time tadalafil Allergy Severe Visual Verified 03/29/25 16:45 side effects SHAWNA Inhibitors Allergy Unknown Cough Verified 03/29/25 16:45 hydrocodone Allergy Unknown Spider Verified 03/29/25 16:45 webs on face PMFSH Past Medical History Medical History Sciatica Glaucoma Screening for AAA (abdominal aortic aneurysm) Global amnesia Chronic stable angina Blockage of coronary artery of heart Patellofemoral syndrome of left knee Medial meniscus tear Left knee pain Fatigue Prediabetes Spondylosis Ocular hypertension Chronic pain of both shoulders Essential (primary) hypertension Gastro-esophageal reflux disease without esophagitis Major depressive disorder, single episode, unspecified Blas's neuroma of left foot Surgical History Surgical History H/O bilateral cataract extraction Hx of cholecystectomy H/O hernia repair Family History Family History Mother Family history of coronary artery disease Hypertension Cerebrovascular accident Arthritis Father No family history of cardiovascular disease Diabetes mellitus Sibling No family history of cardiovascular disease Other Family history of congenital heart disease Social History Social History Social History: The patient lives home alone he is . He has 2 children. 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 His son is the power of tax attorney for healthcare. Code status: Full code Smoking packs per day: 1.5 Smoking cigarettes per day: 30.0 Years smoked: 14 Smoking pack-years: 21.00 Smoking status: Former smoker Second hand tobacco smoke exposure: No Smoking end date: 06/29/86 Alcohol intake: never Substance use: never Substance use type: does not use Lack of Transportation: No Lack of Food: Never True Current Housing: I Have Housing Concerned About Future Housing: No Difficulty Paying Gas/Electric Bills: No Difficulty Paying for Meds: No Currently Unemployed: No Education: Master's Degree or Higher Difficulty w/ Childcare or Family Care: No Living arrangements: with family Occupation/Education: retired Sexual Orientation (if Verbalized by the Patient): Straight or Heterosexual Spiritual care concerns: No Exam Narrative: GENERAL: Well-appearing, well-nourished, and in no acute distress. Patient frequently taking sips of diet pepsi. HEAD: Normocephalic, atraumatic. EYES: Non injected, non icteric ENT: Nares clear, no rhinorrhea or epistaxis. Gross auditory acuity intact. NECK: Supple. No meningismus. CHEST: Speaking in full sentences. No respiratory distress. HEART: Regular rate and rhythm. . ABDOMEN: Soft, nondistended. No rigidity or guarding. Not peritoneal BACK/EXTREMITIES: Normal range of motion. No lower extremity edema. No TTP throughout left calf which is grossly symmetric. 5/5 strength with dorsiflexion plantar flexion. Patient is able to extend and flex at the knee and flex at the left hip. No midline tenderness to palpation of lumbar spinal processes which are without bony deformity or step-off. Patient describes some pain that had been in his left lower back/gluteus. No tenderness to palpation of this area. Compartment of calf soft. He is easily able to get in out of the bed, demonstrating flexion extension of the back. SKIN: Warm, dry, no rash. NEURO: No focal deficits. Alert and oriented. Answering questions. Following commands. Normal speech without aphasia or dysarthria. Sensation intact throughout left lower extremity. Patient is seen both ambulating around the emergency department frequently and standing in his room frequently. He is able to do so with a steady gait. PSYCH: Congruent mood and affect. Course Vital Signs Vital signs: Vital Signs Temperature 97.9 F 04/05/25 19:28 Pulse Rate 66 04/05/25 19:28 Respiratory Rate 18 04/05/25 19:28 Blood Pressure 175/92 H 04/05/25 19:28 Pulse Oximetry 98 04/05/25 19:28 Temperature 97.9 F 04/05/25 19:28 Pulse Rate 66 04/05/25 19:28 Respiratory Rate 18 04/05/25 19:28 Blood Pressure 175/92 H 04/05/25 19:28 Pulse Oximetry 98 04/05/25 19:28 MDM - Back Pain/Injury MDM Narrative Medical decision making narrative: Patient presents with left back pain. He reports that when he attempted to try some back pain stretches/exercises/pelvic exercises that been recommended he be lightheaded. He also reports although he has absolutely no back pain at the time of my examination he has continued to have a dull achy pain in his left lower leg, posterior lateral distribution. In the emergency department he is afebrile with vital signs notable for hypertension. Back has no deformities. Curvature is within normal limits. No tenderness is noted on palpation of the spinous processes which are midline. Lumbar paraspinal muscles are not tender and are without spasm. Patient demonstrates flexion, extension. Sensation to the lower extremities is normal bilaterally. Dorsi/plantar flexion is normal bilaterally. They do not have any other red flags for fracture, malignancy, infection (e.g. spinal epidural abscess), or aortic/vascular: no trauma, not on chronic steroids (only acutely, started after symptoms began), no history of cancer, no fever, IV drug use, HIV, abdominal pain, syncope, or urinary symptoms. However, given his age, will proceed with imaging. Urinalysis unremarkable. D-dimer and magnesium are normal. INR 1.3. BNP is not elevated to a degree to suggest acute heart failure. Mild hyponatremia. CBC with mild abnormalities on the differential but otherwise without leukocytosis, anemia, thrombocytopenia. CPK normal. He continues to have >450 on bladder scan after urinating (had been >500 pre void). Patient has no abdominal pain and his back pain is also not present currently and was not midline. The dull ache he experiences in the left posterior lateral calf would be consistent with a nerve distribution of peroneal nerve, possible sciatica L5 nerve root impingement, sural nerve. Extensive conversation with the patient who remains feeling good. He has no back pain. He remains neurovascularly intact. He does void again and continues to have 237 mL postvoid. While this is slightly high, we had extensively talked about the very low suspicion that this is cauda equina. Patient had remained reluctant about a rectal examination and I do not suspect cord compression/cauda equina. He has underlying spastic bladder and he is on oxybutynin and I suspect this is the cause. He reports that he has recently been having difficulty sleeping although he denies this being due to pain and he otherwise appears very comfortable. The difficulty sleeping may be due to his recent steroid use that was prescribed by urgent care but also his consumption of diet Pepsi be secondary to side effect of dry mouth from oxybutynin medication may also be contributing we discussed this. He has been ambulating around the room and in the doorway frequently. Per review of EMR, also has a history of Blas neuroma. Otherwise stable for discharge and advised follow-up primary care physician but given strict ED return precautions. Differential Diagnosis Differential diagnosis: Likely other (Also considered symptomatic anemia, DVT, thrombophlebitis; spraing/strain; rhabdo; electrolyte abnormalities) Medical Records Attestation: I reviewed the patient's medical records. Medical records narrative: Lumbar spine xray 03/29/25 Impression: No acute abnormality. Also reviewed a patient portal note between him and his access coordinator's office Which notes that they recommended holding the Eliquis for 2 days if patient were to further undergo steroid injections. They noted that they deferred to alternative team regarding the use of steroid. They also did note that well NSAID use is typically discouraged home patient is on Eliquis, they noted that it would be reasonable to trial a low dose, 200 mg, maximum 2 times per day for as short time frame as possible, ideally approximately 1 week. Lab Data Attestation: I reviewed the patient's lab results. 04/06/25 00:18 04/06/25 00:18 Labs: Lab Results 04/05/25 04/06/25 Range/Units 23:49 00:18 WBC 7.5 (4.5-10.0) K/mm3 RBC 5.21 (4.6-6.20) M/mm3 Hgb 15.1 (14.0-18.0) g/dL Hct 45.6 (42.0-52.0) % MCV 87.5 (80-100) fl MCH 29.0 (26-34) pg MCHC 33.1 (32-36) g/dl RDW 13.7 (11.5-14.5) % Plt Count 191 (150-375) k/mm3 MPV 11.2 H (7.4-10.4) fl Immature Gran % (Auto) 0.4 (0-0.5) % Neut % (Auto) 67.4 (45.5-73.1) % Lymph % (Auto) 23.6 (18.3-44.2) % Cottle % (Auto) 7.4 (2.6-8.5) % Eos % (Auto) 0.7 (0-4.4) % Baso % (Auto) 0.5 (0.2-1.2) % Lymph # (Auto) 1.76 (0.9-3.2) K/mm3 Cottle # (Auto) 0.6 (0.1-0.6) K/mm3 Eos # (Auto) 0.1 (0-0.3) K/mm3 Baso # (Auto) 0.0 (0.0-0.1) K/mm3 Abs Immat Gran (auto) 0.03 (0.00-0.031) K/mm3 Absolute Neuts (auto) 5.0 (1.3-6.7) K/mm3 Absolute Nucleated RBC 0.000 (0.0-0.012) K/mm3 Nucleated RBC % 0.0 (0.0-0.2) % PT 16.2 H (11.1-14.7) Seconds INR 1.3 APTT 31.5 (22.3-36.8) Seconds D-Dimer < 0.27 (<0.48) ug/mL Sodium 135 L (137-145) mmol/L Potassium 3.7 (3.4-5.0) mmol/L Chloride 99 (98-107) mmol/L Carbon Dioxide 30 (22-30) mmol/L Anion Gap 6 (4-12) mmol/L BUN 18 (9-20) mg/dL Creatinine 0.77 (0.7-1.3) mg/dL Estim Creat Clear Calc 80 ml/min Estimated GFR > 60 (59 - ) Glucose 102 (65-110) mg/dL Calcium 9.3 (8.4-10.2) mg/dL Magnesium 2.0 (1.6-2.3) mg/dL Total Creatine Kinase 163 (55-170) U/L NT-Pro-B Natriuret Pep 121 H (19.9-100) pg/mL Urine Color Yellow (Yellow) Urine Appearance Clear (Clear) Urine pH 6.0 (5.0-9.0) Ur Specific [place] 1.016 (1.001-1.035) Urine Protein Negative (Negative) mg/dL Urine Glucose (UA) Negative (Negative) mg/dL Urine Ketones Negative (Negative) mg/dL Ur Blood (Man) Negative (Negative) Urine Nitrate Negative (Negative) Urine Bilirubin Negative (Negative) Urine Urobilinogen 0.2 (<2.0) mg/dL Leukocyte Esterase Rfl Negative (Negative) LÁZARO/UL Imaging Data Radiologist's impression: CT L spine w/o contrast Stat Rad: Compared to prior xrays 03/29/25: no acute L spine findings. Degenerative spine findings. Consider MRI if there is further concern. Discharge Plan Discharge Clinical Impression: Left low back pain, Pain of left calf Patient Disposition: Home Condition: Stable Instructions: Antibiotic Form, Oxybutynin (By mouth), Leg Cramps (ED), Lower Back Exercises (ED) Additional Instructions: You can continue taking the medications as prescribed. Follow-up with your primary care physician. Return to the ER if you have increased pain in your back, you develop lower extremity weakness/numbness/paralysis, you have numbness or tingling in your private parts, or you are unable to control your ability to urinate/stool. Patient Language: Telugu Prescriptions: No Action cyclobenzaprine 10 mg tablet 10 mg PO HS PRN (Reason: muscle spasm) Qty: 10 0RF isosorbide mononitrate 30 mg tablet extended release 24 hr 30 mg PO DAILY nitroglycerin [Nitrostat] 0.4 mg tablet, sublingual 0.4 mg SUBLINGUAL Q5M PRN (Reason: chest pain) fluticasone propionate [Flonase Allergy Relief] 50 mcg/actuation spray,suspension 2 spray intranasal DAILY Qty: 16 2RF Rx Instructions: administer into each nostril meclizine 25 mg tablet 25 mg PO TID PRN (Reason: dizziness) Qty: 30 0RF coenzyme Q10 [CoQ-10] 100 mg capsule 200 mg PO DAILY lutein 20 mg capsule 20 mg PO DAILY Patient Comments: TAKES EVERY OTHER DAY Rx Instructions: give with meal/snack cholecalciferol (vitamin D3) 50 mcg (2,000 unit) capsule 50 mcg PO DAILY Patient Comments: TAKES EVERY OTHER DAY lorazepam 1 mg tablet 1 mg PO BID PRN (Reason: anxiety) Qty: 60 0RF timolol 0.5 % drops 1 drp EACH EYE DAILY metoprolol succinate 25 mg tablet extended release 24 hr 25 mg PO DAILY cyanocobalamin (vitamin B-12) 1,000 mcg tablet 3,000 mcg PO DAILY hydrochlorothiazide 12.5 mg Capsule 12.5 mg PO QAM 30 Days Qty: 30 1RF Eliquis 5 mg Tablet 5 mg PO Q12HR 30 Days Qty: 60 1RF aspirin 81 mg capsule 81 mg PO DAILY 30 Days Qty: 30 0RF atorvastatin 40 mg tablet 40 mg PO DAILY Qty: 90 1RF oxybutynin chloride 5 mg tablet extended release 24hr 5 mg PO DAILY Qty: 90 0RF methylprednisolone [Medrol (Jimbo)] 4 mg tablets,dose pack See Rx Instructions PO PER PKG DIR Qty: 21 0RF Rx Instructions: PO PER PKG DIR losartan 50 mg tablet See Rx Instructions .ROUTE .COMPLEX Qty: 90 0RF Dose Instruction: TAKE 1 TABLET BY MOUTH DAILY Rx Instructions: TAKE 1 TABLET BY MOUTH DAILY Follow-up/Referrals: Stef Hi MD [Primary Care Provider, Family Practice] Stand Alone Forms: Work/School Release IP Time of Disposition: 02:45
[2025-04-05 23:55] LABS: Add Urine Microscopic? NO; Appearance Urine Clear (Clear); Glucose Urine UA Negative (Negative); Leukocyte Esterase Ur Negative LEU/UL (Negative); Nitrate Urine Negative (Negative); Specific Grav Ur 1.016 (1.001-1.035)
[2025-04-06 00:36] LABS: INR 1.3; Prothrombin Time 16.2 Seconds (11.1-14.7)
[2025-04-06 00:37] LABS: Partial Thromboplastin Time 31.5 Seconds (22.3-36.8)
[2025-04-06 00:40] LABS: Anion Gap 6 mmol/L (4-12); Blood Urea Nitrogen 18 mg/dL (9-20); Calcium 9.3 mg/dL (8.4-10.2); Carbon Dioxide 30 mmol/L (22-30); Chloride 99 mmol/L (98-107); Creatine Kinase 163 U/L (55-170); Estimated CRCL calculation 80 ml/min; Estimated Glomerular Filt Rate > 60; Glucose 102 mg/dL (65-110); Hematocrit 45.6 % (42.0-52.0); Hemoglobin 15.1 g/dL (14.0-18.0); Immature Granulocyte Percent A 0.4 % (0-0.5); Lymphocytes Absolute Auto 1.76 K/mm3 (0.9-3.2); Magnesium 2.0 mg/dL (1.6-2.3); Mean Corpuscular HGB Conc 33.1 g/dl (32-36); Mean Corpuscular Hemoglobin 29.0 pg (26-34); Mean Corpuscular Volume 87.5 fl (80-100); Nucleated Red Blood Cells Absolute Auto 0.000 K/mm3 (0.0-0.012); Nucleated Red Blood Cells Perc 0.0 % (0.0-0.2); Platelet Count Result 191 k/mm3 (150-375); Potassium 3.7 mmol/L (3.4-5.0); Red Blood Count 5.21 M/mm3 (4.6-6.20); Sodium 135 mmol/L (137-145); White Blood Count 7.5 K/mm3 (4.5-10.0)
[2025-04-06 00:45] LABS: NT Pro B Type Natriuretic Pept 121 pg/mL (19.9-100)
== END 2025-04-06 03:02 | disposition home or self-care (01) ==
PROVIDERS: Emergency Provider Student in an Organized Health Care Education/Training Program; PCP Family Medicine
DX: M54.50 Low back pain, unspecified (principal); M79.605 Pain in left leg; I20.89 Other forms of angina pectoris; I10 Essential (primary) hypertension; R73.03 Prediabetes; H40.9 Unspecified glaucoma; K21.9 Gastro-esophageal reflux disease without esophagitis; Q21.12 Patent foramen ovale; Z87.891 Personal history of nicotine dependence
CPT/HCPCS: 36415; 72131; 80048; 81003; 82550; 83735; 83880; 85025; 85380; 85610; 85730; 99284

== ENCOUNTER 2025-04-16 15:38 | Emergency (ER) | payer MEDICARE, SELFPAY ==
[2025-04-16 15:55] VITALS: BP 156/94; PULSE 80; RESP 17; TEMP 36.6; O2SAT 98
--- OUTSIDE RECORDS SUMMARY | 2025-04-16 18:18 | XMS_ITS | Clinical Summary ---
Author Organization [facility] Address [address] [place] [address] Care Team Providers Care Sales Support Administrator Name Role Phone Sherri Hi MD Primary Care Provider [phone] Allergies Active Allergy Reactions Criticality Noted Date Comments Gilberto Inhibitors Cough Low lisinopril Hydrocodone Itching Low Reaction: Itching, [place] like spider webs on face Medications atorvastatin [...] 20 mg by mouth every morning Active isosorbide mononitrate ER (IMDUR) 30 mg [...] DAILY 90 tablet 3 03/07/20 25 Active metoprolol XL (TOPROL-XL) 25 mg extended release tablet TAKE 1 TABLET(25 MG) BY MOUTH DAILY 90 tablet 3 04/10/20 25 Active metoprolol XL (TOPROL-XL) 25 mg extended release tablet TAKE 1 TABLET(25 MG) BY MOUTH DAILY 90 tablet 3 07/01/19 25 025 Discontinued Active Problems Problem Noted Date [...] Monitor Assessment & Plan (07/07/2023 3:26 PM STATISTICIAN): Excellent vision sc, monitor Assessment & Plan [...] OD Assessment & Plan (07/07/2023 3:26 PM STATISTICIAN): IOP today generally stable from previous, some flucuation from visit to visit Today 18/16 Baseline cirrus OCT today with polar changes OD, full OS [place] OCT stable from previous DFE at f/u [...] 24-2 Assessment & Plan (07/22/2022 2:21 PM STATISTICIAN): S/P phaco yolie OD, phaco OS for opening angle. IOP [...] weeks later. Coronary artery disease invo lving soboba coronary artery of soboba heart without angina pectoris 10/15/2020 Increased body mass index (BMI) 11/26/2016 Benign essential hypertension 12/25/2015 Hyperlipidemia LDL goal <70 12/25/2015 Coronary artery disease invo lving soboba coronary artery of soboba heart with angina pectoris 02/09/2015 Obesity with body mass index 30 or greater 07/26 Cardiomyopathy 07/26/2014 Resolved Problems Problem Noted Date Diagnosed Date Resolved Date Nuclear sclerotic cataract of right eye 12/04/2021 02/19/2022 Overview (12/04/2021): Added automatically from request for surgery [id number] (nuclear sclerosis), left 11/19/2021 01/20/2023 Assessment [...] Encounters Date Type Department Care Team Description 04/11/[address] [facility] Medicine Ophthalmology [address] [place] [address] Zeeshan Decker, OD No Show 03/20/2025 Orders Only [facility] Cardiology [address] [facility] [address] [place] [address] Niko Good MD 03/16/2025 7:30 PM CDT Office Visit [facility] Convenient Care at [address] [address] Bharati Chaudhary NP Dizziness (Primary Dx); Unsteady gait; Elevated blood pressure reading 01/26/2025 Orders Only [facility] [address] [facility] Medicine [address]th [place] [address] [place] [address] Sherri Pham MD Aortic root dilation (Primary Dx); Aortic valve sclerosis 01/26/2025 Results Follow-Up [facility] [address] [facility] Medicine 8th [place] [address] [place] [address] Sherri Pham MD Transthoracic Echo (TTE) Complete W Doppler/CF 01/24/2025 1:30 PM CDT Ancillary Procedure [facility] [address] [facility] [address] [place] [address] Aortic root dilation from Last 3 Months Surgical History Surgery Date Site/Laterality Comments EYE SURGERY 06/29/2016 - 06/28/2017 Right Laser Procedure CHOLECYSTECTOMY 06/29/2007 - 06/28/2008 CATARACT EXTRACTION W/ INTRAOCULAR LENS IMPLANT 12/18/2021 Right w/Beny-Dr. Mcmullen COLONOSCOPY HERNIA REPAIR 06/29/2007 - 06/28/2008 [...] Former Cigarettes 1.5 16 1 971 - 1986 Passive Smoke Exposure: Past Smokeless [...] on file Legal Sex Male 3:33 AM STATISTICIAN Gender Identity Not on file Sexual Orientation [...] 180.3 cm (5' 11) 06/20/2024 10:48 AM STATISTICIAN Body Mass Index 28.45 06/20/2024 10:48 AM STATISTICIAN Plan of Treatment Health Maintenance Due Date Last Done Comments Colon Cancer Screening-Colonoscopy 1955 Depression Screening 1955 Hepatitis C Screening 1955 DTaP/Tdap/Td Vaccine (1 - Tdap) 02/09/1964 Hepatitis B Screening 1971 Zoster Vaccine (2 of 3) 06/22/2015 04/27/2015 Abdominal Aortic Aneurysm (A AA) Screen 2018 Well Visit 65+ 2018 Fall Risk Assessment 02/19/2023 02/19/2022 Covid-19 Vaccine (2024-2 6 season) 2025 10/23/2021, 03/28/2021, 09/11/2020, Additional history exists Influenza Vaccine (#1) 2025 , 04/08/2019, 04/28/2017, Additional history exists Pneumococcal vaccine 65+ Completed 020, 07/23/2018, 07/17/2014 Medical Devices Implanted Type Area Administrative Officer Device Identifier Shelf Expiration Date Model / Serial / Lot [employer] Lens Tecnis Eyhance Iol [id number] - [id number] - [id number] Implanted:Qty: 1 on 02/19/2022 by Onur Mcmullen MD at [facility] Advanced Medicine Lens Left: Eye [employer] 08/15/2024 [id number] / [id number] / 0 [employer] Lens Iol Posterior Biconvex Optic Single Piece Envista 6.0x12.5 +18.5d Hydrophobic Acrylic [id number] - [id number] - [id number] Implanted:Qty: 1 on 12/18/2021 by Onur Mcmullen MD at [facility] Medicine Right: Lens [employer] [id number] 05/28/2024 [id number] / [id number] / Procedures Procedure Name Priority Date/Time Associated Diagnosis Comments CARDIOLOGY DOCUMENT SCAN Routine 03/19/2025 2:49 PM CDT CARDIOLOGY DOCUMENT SCAN Routine 03/18/2025 2:47 PM CDT TRANSTHORACIC ECHO (TTE) COMPLETE W DOPPLER/CF WO CONTRAST Routine 01/24/2025 2:01 PM CDT Aortic root dilation from Last 3 Months Results * Cardiology Document Scan (03/19/2025 2:49 PM CDT) Anatomical Region Laterality Modality Other us Niko Good MD CV CARDIAC SERVICES PROC EDURES Final Result * Cardiology Document Scan (03/18/2025 2:47 PM CDT) Anatomical Region Laterality Modality Other us Niko Good MD CV CARDIAC SERVICES PROC EDURES Final Result * TRANSTHORACIC ECHO (TTE) COMPLETE W DOPPLER/CF WO CONTRAST (01/24/2025 2:01 PM CDT) EF Mod BP 57 % CONS SCIMAGE Anatomical Region Laterality Modality Ultrasound 01/24/2025 1:20 PM CDT Narrative 01/24/2025 5:08 PM CDT [facility], [address] [place] [address] Transthoracic Echocardiographic Report Patient Name: GARRETT BULLARD E : 1955 (69y 11m) Gender: M Study Date: 01/24/2025 01:20:25 PM Ht(Inch): 71 Wt(Lb): 207.01 BSA: 2.17 Guest Service Aide: Frantz MckeonTEverardo),[facility] Location: [facility] Order Provider: SHERRI PHAM Heart Rate: 57 [...] Aly MD - 01/24/2025 [facility], [address] [place] [address] Transthoracic Echocardiographic Report Patient Name: GARRETT BULLARD E : 1955 (69y 11m) Gender: M Study Date: 01/24/2025 01:20:25 PM Ht(Inch): 71 Wt(Lb): 207.01 BSA: 2.17 Guest Service Aide: Chandu Mckeon,[facility] Location: [facility] Order Provider:SHERRI PHAM Heart Rate: 57 BMI: [...] [ 62.00 - 150.00 ] MV Decel Fwqe108.63 msec [ 104.00 - 258.00 ] LV [...] cm [ 1.71 - 5.00 ] RA Fykcwc42.60 ml RA Volume Index16.88 ml/m2 IVC Diam2.07 cm AoR Diam 2D 4.20 cm [ 3.10 - 3.70 ] Ao Root Index 1.94 cm/m2 [ 1.00 - 2.00 ] Asc Ao Diam 2D3.34 cm Asc Ao Index1.54 cm/m2 Electronically Signed By: Amber Zambrano MD 01/24/2025 5:07:35 PM CDT us Sherri Pham MD CV ECHO PROCEDURES Final Resu lt from Last 3 Months Insurance MED[employer] Advance Directives For more information, please contact: [phone] Documents on File Type Date Recorded Patient Pet Groomer Expl anation ADVANCE DIRECTIVE 06/30/2024 9:37 AM Power of Tape Rules Printing Machine Operator-Medical Care Teams Sales Support Administrator Relationship Specialty Start Date End Date Sherri Hi MD PCP - General Family Practice 01/20/23
--- OUTSIDE RECORDS SUMMARY | 2025-04-16 18:19 | XMS_ITS | Encounter Summary ---
Author Organization [facility] Address [address] [place] [address] Phone Care Team Providers Care Director Of Video Analytics Name Role Phone Rolan Brar DO Primary Care Provider [phone] Stef Hi MD Primary Care Provider [phone] Encounter Details Date Type Department Care Team (Latest Contact Info) Description 04/10/2021 Orders Only [facility] Scanning, Provider Social History Tobacco Use Types Packs/Day Years Used Date Smoking Tobacco: Former Sex and Gender Information Value Date Recorded Sex Assigned at Not on file Legal Sex Male 3:33 AM 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
--- OUTSIDE RECORDS SUMMARY | 2025-04-16 18:19 | XMS_ITS | Encounter Summary ---
Author Organization [facility] Address [address] [place] [address] Phone Care Team Providers Care Meatcutter Name Role Phone Stef Hi MD Primary Care Provider [phone] Encounter Details Date Type Department Care Team [...] on file Legal Sex Male 3:33 AM RUG HOOKER Gender Identity Not on file Sexual Orientation [...] on filedocumented in this encounter Care Teams Meatcutter Relationship Specialty Start Date End Date Stef Hi MD PCP - General Family Practice 01/20/23 documented as of this encounter
--- OUTSIDE RECORDS SUMMARY | 2025-04-16 18:19 | XMS_ITS | Encounter Summary ---
Author Organization [facility] Address [address] [place] [address] Phone Care Team Providers Care Sec Reporting Consultant Name Role Phone Zonia Rolan Primary Care Provider [phone] Stef Hi MD Primary Care Provider [phone] Encounter Details Date Type Department Care Team (Late st Contact Info) Description 11/01/2019 Telephone [facility] Cardiology [address] [facility] Advanced Medicine 8th [place] [address] [place] [address] Maurisio Quevedo MD [address] [place] [address] Social History Tobacco Use Types Packs/Day Years Used Date Smoking Tobacco: Former Sex and Gender Information Value Date Recorded Sex Assigned at Not on file Legal 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
--- OUTSIDE RECORDS SUMMARY | 2025-04-16 18:19 | XMS_ITS | Encounter Summary ---
Author Organization [facility] Address [address] [place] [address] Phone Care Team Providers Care Claim Rep Name Role Phone Stef Hi MD Primary Care Provider [phone] Encounter Details Date Type Department Care Team (Late st Contact Info) Description 08/18/2023 E-Visit [facility] Medicine Cardiology [address] [facility] [address] [place] [address] Stef Batista MD [address] [facility] [address] [place], [place] [id number] Diclofenac topical Social History Tobacco Use Types [...] on file Legal 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
[2025-04-16 18:21] LABS: Hematocrit 44.4 % (42.0-52.0); Hemoglobin 14.6 g/dL (14.0-18.0); Immature Granulocyte Percent A 0.3 % (0-0.5); Lymphocytes Absolute Auto 1.53 K/mm3 (0.9-3.2); Mean Corpuscular HGB Conc 32.9 g/dl (32-36); Mean Corpuscular Hemoglobin 28.6 pg (26-34); Mean Corpuscular Volume 87.1 fl (80-100); Nucleated Red Blood Cells Absolute Auto 0.000 K/mm3 (0.0-0.012); Nucleated Red Blood Cells Perc 0.0 % (0.0-0.2); Platelet Count Result 163 k/mm3 (150-375); Red Blood Count 5.10 M/mm3 (4.6-6.20); White Blood Count 7.0 K/mm3 (4.5-10.0)
[2025-04-16 18:35] LABS: Alanine Aminotransferase 26 U/L (6-50); Albumin Level 3.8 g/dL (3.5-5.1); Alkaline Phosphatase 92 U/L (38-126); Anion Gap 6 mmol/L (4-12); Aspartate Amino Transferase 42 U/L (17-59); Bilirubin,Total 1.2 mg/dL (0.2-1.3); Blood Urea Nitrogen 16 mg/dL (9-20); Calcium 9.0 mg/dL (8.4-10.2); Carbon Dioxide 29 mmol/L (22-30); Chloride 102 mmol/L (98-107); Estimated Glomerular Filt Rate > 60; Glucose 90 mg/dL (65-110); Potassium 3.9 mmol/L (3.4-5.0); Sodium 137 mmol/L (137-145); Total Protein 6.6 g/dL (6.3-8.2)
--- NOTE | 2025-04-16 18:49 | ED.MALEGU ---
HPI - Male Genitourinary General Chief complaint: Urogenital-Male Stated complaint: increased urination Time Seen by Provider: 04/16/25 17:42 Source: patient Mode of arrival: ambulatory Limitations: no limitations History of Present Illness HPI Narrative: This is a 70-year-old male with history of BPH, CVA, depression GERD, hypertension, CAD who presents the ED for urinary retention. Patient states for the past week, he has been having worsening urinary retention. He is having the urge to urinate but is only able to get dribbles out. He states that a week or so ago, he had a flare-up of back pain and was started on cyclobenzaprine. He was having some severe dry mouth issues in relation to that and the is oxybutynin so he stopped both of them and is now retaining urine. Related Data Home Medications ?Medication ?Instructions ?Recorded ?Confirmed ?Last Taken ?Type isosorbide mononitrate 30 mg 30 mg PO DAILY 05/12/19 03/21/25 Unknown History tablet,extended release 24 hr nitroglycerin 0.4 mg sublingual 0.4 mg sublingual Q5M PRN chest 05/12/19 03/21/25 Unknown History tablet (Nitrostat) pain cholecalciferol (vitamin D3) 50 50 mcg PO DAILY 09/30/23 03/21/25 Unknown History mcg (2,000 unit) capsule coenzyme Q10 100 mg capsule 200 mg PO DAILY 09/30/23 03/21/25 Unknown History (CoQ-10) lutein 20 mg capsule 20 mg PO DAILY 09/30/23 03/21/25 Unknown History timolol 0.5 % eye drops 1 drp EACH EYE DAILY 09/30/23 03/21/25 Unknown History metoprolol succinate 25 mg 25 mg PO DAILY 01/03/25 03/21/25 Unknown History tablet,extended release 24 hr cyanocobalamin (vitamin B-12) 3,000 mcg PO DAILY 03/17/25 03/21/25 Unknown History 1,000 mcg tablet Allergies Allergy/AdvReac Type Severity Reaction Status Date / Time tadalafil Allergy Severe Visual Verified 03/29/25 16:45 side effects SHAWNA Inhibitors Allergy Unknown Cough Verified 03/29/25 16:45 hydrocodone Allergy Unknown Spider Verified 03/29/25 16:45 webs on face PMFSH Past Medical History Medical History Sciatica Glaucoma Screening for AAA (abdominal aortic aneurysm) Global amnesia Chronic stable angina Blockage of coronary artery of heart Patellofemoral syndrome of left knee Medial meniscus tear Left knee pain Fatigue Prediabetes Spondylosis Ocular hypertension Chronic pain of both shoulders Essential (primary) hypertension Gastro-esophageal reflux disease without esophagitis Major depressive disorder, single episode, unspecified Blas's neuroma of left foot Surgical History Surgical History H/O bilateral cataract extraction Hx of cholecystectomy H/O hernia repair Family History Family History Mother Family history of coronary artery disease Hypertension Cerebrovascular accident Arthritis Father No family history of cardiovascular disease Diabetes mellitus Sibling No family history of cardiovascular disease Other Family history of congenital heart disease Social History Social History Social History: The patient lives home alone he is . He has 2 children. 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 His son is the power of prosecuting attorney for healthcare. Code status: Full code Smoking packs per day: 1.5 Smoking cigarettes per day: 30.0 Years smoked: 14 Smoking pack-years: 21.00 Smoking status: Former smoker Second hand tobacco smoke exposure: No Smoking end date: 06/29/86 Alcohol intake: never Substance use: never Substance use type: does not use Lack of Transportation: No Lack of Food: Never True Current Housing: I Have Housing Concerned About Future Housing: No Difficulty Paying Gas/Electric Bills: No Difficulty Paying for Meds: No Currently Unemployed: No Education: Master's Degree or Higher Difficulty w/ Childcare or Family Care: No Living arrangements: with family Occupation/Education: retired Sexual Orientation (if Verbalized by the Patient): Straight or Heterosexual Spiritual care concerns: No Course Vital Signs Vital signs: Vital Signs Temperature 97.9 F 04/16/25 15:55 Pulse Rate 80 04/16/25 15:55 Respiratory Rate 17 04/16/25 15:55 Blood Pressure 156/94 H 04/16/25 15:55 Pulse Oximetry 98 04/16/25 15:55 Oxygen Delivery Room Air 04/16/25 15:55 Temperature 98.2 F 04/16/25 20:55 Pulse Rate 66 04/16/25 20:55 Respiratory Rate 20 04/16/25 20:55 Blood Pressure 118/85 04/16/25 20:55 Pulse Oximetry 98 04/16/25 20:55 Oxygen Delivery Room Air 04/16/25 15:55 MDM - Male Genitourinary MDM Narrative Medical decision making narrative: 70-year-old male presenting for urinary retention. On initial evaluation, patient was in no acute distress, afebrile, hemodynamically stable. He had mild discomfort with palpation of the suprapubic region. Postvoid residual was obtained and was greater than 400 so Holloway catheter was placed. Eventually a coude was required to be placed due to a urethral stricture. He had immediate return of approximately 400 cc of urine. UA showed no evidence of infection. CBC and CMP were without significant abnormalities. Patient will require Holloway to remain in place for the next couple days. He was advised follow-up with urology in the next couple days for re-evaluation and for potential Holloway removal. Patient was agreeable to this plan. Given strict return precautions. Differential Diagnosis Differential diagnosis: Likely urinary tract infection, prostatitis and acute retention of urine Medical Records Attestation: I reviewed the patient's medical records. Lab Data Attestation: I reviewed the patient's lab results. 04/16/25 18:15 04/16/25 18:15 Labs: Lab Results 04/16/25 04/16/25 Range/Units 18:15 19:35 WBC 7.0 (4.5-10.0) K/mm3 RBC 5.10 (4.6-6.20) M/mm3 Hgb 14.6 (14.0-18.0) g/dL Hct 44.4 (42.0-52.0) % MCV 87.1 (80-100) fl MCH 28.6 (26-34) pg MCHC 32.9 (32-36) g/dl RDW 13.5 (11.5-14.5) % Plt Count 163 (150-375) k/mm3 MPV 10.6 H (7.4-10.4) fl Immature Gran % (Auto) 0.3 (0-0.5) % Neut % (Auto) 69.4 (45.5-73.1) % Lymph % (Auto) 21.8 (18.3-44.2) % [place] % (Auto) 6.7 (2.6-8.5) % Eos % (Auto) 1.4 (0-4.4) % Baso % (Auto) 0.4 (0.2-1.2) % Lymph # (Auto) 1.53 (0.9-3.2) K/mm3 [place] # (Auto) 0.5 (0.1-0.6) K/mm3 Eos # (Auto) 0.1 (0-0.3) K/mm3 Baso # (Auto) 0.0 (0.0-0.1) K/mm3 Abs Immat Gran (auto) 0.02 (0.00-0.031) K/mm3 Absolute Neuts (auto) 4.9 (1.3-6.7) K/mm3 Absolute Nucleated RBC 0.000 (0.0-0.012) K/mm3 Nucleated RBC % 0.0 (0.0-0.2) % Sodium 137 (137-145) mmol/L Potassium 3.9 (3.4-5.0) mmol/L Chloride 102 (98-107) mmol/L Carbon Dioxide 29 (22-30) mmol/L Anion Gap 6 (4-12) mmol/L BUN 16 (9-20) mg/dL Creatinine 0.76 (0.7-1.3) mg/dL Estim Creat Clear Calc Not Reportable Estimated GFR > 60 (59 - ) Glucose 90 (65-110) mg/dL Calcium 9.0 (8.4-10.2) mg/dL Total Bilirubin 1.2 (0.2-1.3) mg/dL AST 42 (17-59) U/L ALT 26 (6-50) U/L Alkaline Phosphatase 92 (38-126) U/L Total Protein 6.6 (6.3-8.2) g/dL Albumin 3.8 (3.5-5.1) g/dL Urine Color Yellow (Yellow) Urine Appearance Turbid H (Clear) Urine pH 5.0 (5.0-9.0) Ur Specific [place] 1.021 (1.001-1.035) Urine Protein Negative (Negative) mg/dL Urine Glucose (UA) Negative (Negative) mg/dL Urine Ketones 1+ H (Negative) mg/dL Ur Blood (Man) Negative (Negative) Urine Nitrate Negative (Negative) Urine Bilirubin Negative (Negative) Urine Urobilinogen 0.2 (<2.0) mg/dL Add Ur Microanalysis Reviewed Leukocyte Esterase Rfl Negative (Negative) LÁZARO/UL Urine RBC 6-10 H (0-2) /hpf Urine WBC 0-5 (0-3) /hpf Ur Squamous Epith Cells Occasional (Few) /hpf Urine Bacteria None seen /hpf Urine Casts 3-5 Discharge Plan Discharge Clinical Impression: Acute urinary retention Patient Disposition: Home Condition: Stable Instructions: Antibiotic Form, Urinary Retention in Men (ED), Holloway Catheter Placement and Care (ED) Additional Instructions: Please keep the Holloway in for the next 2-3 days. Follow up with Urology at that time for a voiding trial and further evaluation of your urinary retention. Alternatively, you may return to the ED for a voiding trial. Patient Language: Tamazight Prescriptions: No Action cyclobenzaprine 10 mg tablet 10 mg PO HS PRN (Reason: muscle spasm) Qty: 10 0RF isosorbide mononitrate 30 mg tablet extended release 24 hr 30 mg PO DAILY nitroglycerin [Nitrostat] 0.4 mg tablet, sublingual 0.4 mg SUBLINGUAL Q5M PRN (Reason: chest pain) fluticasone propionate [Flonase Allergy Relief] 50 mcg/actuation spray,suspension 2 spray intranasal DAILY Qty: 16 2RF Rx Instructions: administer into each nostril meclizine 25 mg tablet 25 mg PO TID PRN (Reason: dizziness) Qty: 30 0RF coenzyme Q10 [CoQ-10] 100 mg capsule 200 mg PO DAILY lutein 20 mg capsule 20 mg PO DAILY Patient Comments: TAKES EVERY OTHER DAY Rx Instructions: give with meal/snack cholecalciferol (vitamin D3) 50 mcg (2,000 unit) capsule 50 mcg PO DAILY Patient Comments: TAKES EVERY OTHER DAY lorazepam 1 mg tablet 1 mg PO BID PRN (Reason: anxiety) Qty: 60 0RF timolol 0.5 % drops 1 drp EACH EYE DAILY metoprolol succinate 25 mg tablet extended release 24 hr 25 mg PO DAILY cyanocobalamin (vitamin B-12) 1,000 mcg tablet 3,000 mcg PO DAILY hydrochlorothiazide 12.5 mg Capsule 12.5 mg PO QAM 30 Days Qty: 30 1RF Eliquis 5 mg Tablet 5 mg PO Q12HR 30 Days Qty: 60 1RF aspirin 81 mg capsule 81 mg PO DAILY 30 Days Qty: 30 0RF atorvastatin 40 mg tablet 40 mg PO DAILY Qty: 90 1RF oxybutynin chloride 5 mg tablet extended release 24hr 5 mg PO DAILY Qty: 90 0RF methylprednisolone [Medrol (Jimbo)] 4 mg tablets,dose pack See Rx Instructions PO PER PKG DIR Qty: 21 0RF Rx Instructions: PO PER PKG DIR losartan 50 mg tablet See Rx Instructions .ROUTE .COMPLEX Qty: 90 0RF Dose Instruction: TAKE 1 TABLET BY MOUTH DAILY Rx Instructions: TAKE 1 TABLET BY MOUTH DAILY Follow-up/Referrals: Stef Hi MD [Primary Care Provider, Family Practice] Erlin Vargas MD [Physician, Urology] Guy Lin MD [Physician, Urology]
[2025-04-16 19:56] LABS: Add Urine Microscopic? YES; Appearance Urine Turbid (Clear); Glucose Urine UA Negative (Negative); Leukocyte Esterase Ur Negative LEU/UL (Negative); Need Manual Microscopic Reviewed; Nitrate Urine Negative (Negative); Specific Grav Ur 1.021 (1.001-1.035)
[2025-04-16 20:55] VITALS: BP 118/85; PULSE 66; RESP 20; TEMP 36.8; O2SAT 98
--- NOTE | 2025-04-16 21:47 | PC.NURSE ---
2114-DISCHARGING PATIENT. PATIENT HAS MULTIPLE CONCERNS/REQUESTS. PATIENT REQUESTS CHANGE IN PLACEMENT OF FIERRO STATING FIERRO IS PULLING DESPITE LOOP IN FIERRO CATHETER TO STAT LOCK APPLIANCE. STAT LOCK APPLIANCE REMOVED AND REAPPLIED INCREASING CATHETER LOOP. PATIENT REPORTS INCREASE IN COMFORT. PATIENT REQUESTS CHANGE IN PLACEMENT OF LEG BAG ON THIGH. MULTIPLE ATTEMPTS MADE TO REPOSITION LEG BAG TO THIGH WITH MINIMAL PATIENT SATISFACTION. PATIENT STATES JUST LEAVE IT. PROVIDED PATIENT WITH EXTENSIVE VERBAL INSTRUCTIONS ON FIERRO CARE AND HOW TO EMPTY FIERRO LEG BAG. PROVIDED URINAL TO EMPTY LEG BAG INTO. EXPLAINED TO PATIENT TO EMPTY URINAL INTO TOILET AFTER EMPTYING FIERRO BAG. PATIENT NEEDED DISCHARGE INSTRUCTIONS REVIEWED MULTIPLE TIMES. PATIENT STATES I'M 70 YEARS OLD. I DON'T KNOW HOW YOU EXPECT ME TO REMEMBER ALL THIS. AGAIN, PATIENT WAS DIRECTED TO EXTENSIVE DISCHARGE INSTRUCTION PACKET WHICH WAS REVIEWED MULTIPLE TIME WITH PATIENT.
== END 2025-04-16 21:41 | disposition home or self-care (01) ==
PROVIDERS: Emergency Provider Student in an Organized Health Care Education/Training Program; PCP Family Medicine
DX: N40.1 Benign prostatic hyperplasia with lower urinary tract symptoms (principal); R33.8 Other retention of urine; I10 Essential (primary) hypertension; I25.118 Atherosclerotic heart disease of native coronary artery with other forms of angina pectoris; K21.9 Gastro-esophageal reflux disease without esophagitis; R73.03 Prediabetes; H40.9 Unspecified glaucoma; F32.9 Major depressive disorder, single episode, unspecified; Z86.73 Personal history of transient ischemic attack (TIA), and cerebral infarction without residual deficits; Z87.891 Personal history of nicotine dependence; Z98.42 Cataract extraction status, left eye; Z98.41 Cataract extraction status, right eye; Z90.49 Acquired absence of other specified parts of digestive tract; Z79.82 Long term (current) use of aspirin; Z79.01 Long term (current) use of anticoagulants; Z79.899 Other long term (current) drug therapy
CPT/HCPCS: 36415; 51702; 80053; 81001; 85025; 99283

== ENCOUNTER 2025-04-20 07:48 | Emergency (ER) | payer MEDICARE, SELFPAY ==
[2025-04-20 07:53] VITALS: PULSE 78; RESP 18; TEMP 37; O2SAT 97
--- OUTSIDE RECORDS SUMMARY | 2025-04-20 07:53 | XMS_ITS | Clinical Summary ---
Author Organization [facility] Address [address] [place] [address] Care Team Providers Care Chief Contract Officer Name Role Phone Sherri Hi MD Primary Care Provider [phone] Allergies Active Allergy Reactions Criticality Noted Date Comments Gilberto Inhibitors Cough Low lisinopril Hydrocodone Itching Low Reaction: Itching, Tidioute like spider webs on face Medications atorvastatin [...] Monitor Assessment & Plan (07/07/2023 3:26 PM BAGGAGE SECURITY CHECKER): Excellent vision sc, monitor Assessment & Plan [...] OD Assessment & Plan (07/07/2023 3:26 PM BAGGAGE SECURITY CHECKER): IOP today generally stable from previous, some flucuation from visit to visit Today 18/16 Baseline cirrus OCT today with polar changes OD, full OS [place] OCT stable from previous DFE at f/u [...] 24-2 Assessment & Plan (07/22/2022 2:21 PM BAGGAGE SECURITY CHECKER): S/P phaco yolie OD, phaco OS for [...] weeks later. Coronary artery disease invo lving yocha dehe coronary artery of yocha dehe heart without angina pectoris 10/15/2020 Increased body mass index (BMI) 11/26/2016 Benign essential hypertension 12/25/2015 Hyperlipidemia LDL goal <70 12/25/2015 Coronary artery disease invo lving yocha dehe coronary artery of yocha dehe heart with angina pectoris 02/09/2015 Obesity with body mass index 30 or greater 07/26 Cardiomyopathy 07/26/2014 Resolved Problems Problem Noted Date Diagnosed Date Resolved Date Nuclear sclerotic cataract of right eye 12/04/2021 02/19/2022 Overview (12/04/2021): Added automatically from request for surgery [id number] (nuclear sclerosis), left 11/19/2021 01/20/2023 Assessment [...] Type Department Care Team Description 04/11/2025 Telephone [facility] Medicine Ophthalmology [address] [place] [address] Zeeshan Decker, OD No Show 03/20/2025 Orders Only [facility] Cardiology [address] [place] [address] Niko Good MD 03/16/2025 7:30 PM CDT Office Visit [facility] Con[facility]ient Care at [address] [address] Bharati Chaudhary NP Dizziness (Primary Dx); Unsteady gait; Elevated blood pressure reading 01/26/2025 Orders Only [facility] Cardiology [address] [facility] Medicine 8th [place] [address] [place] [address] Sherri Pham MD Aortic root dilation (Primary Dx); Aortic valve sclerosis 01/26/2025 Results Follow-Up [facility] Cardiology [address] [facility] Medicine 8th [place] [address] [place] [address] Sherri Pham MD Transthoracic Echo (TTE) Complete W Doppler/CF 01/24/2025 1:30 PM CDT Ancillary Procedure [facility] Cardiology [address] [facility] [address] [place] [address] Aortic root dilation from Last 3 Months [...] on file Legal Sex Male 3:33 AM BAGGAGE SECURITY CHECKER Gender Identity Not on file Sexual Orientation [...] 180.3 cm (5' 11) 06/20/2024 10:48 AM BAGGAGE SECURITY CHECKER Body Mass Index 28.45 06/20/2024 10:48 AM BAGGAGE SECURITY CHECKER Plan of Treatment Health Maintenance Due Date [...] 07/23/2018, 07/17/2014 Medical Devices Implanted Type Area Knit Goods Cutter Hand Device Identifier Shelf Expiration Date Model / Serial / Lot [employer] Lens Tecnis Eyhance Iol [id number] - [id number] - [id number] Implanted:Qty: 1 on 02/19/2022 by Onur Mcmullen MD at [facility] Medicine Lens Left: Eye [employer] 08/15/2024 [id number] / [id number] / 0 [employer] Lens Iol Posterior Biconvex Optic Single Piece Envista 6.0x12.5 +18.5d Hydrophobic Acrylic [id number] - [id number] - [id number] Implanted:Qty: 1 on 12/18/2021 by Onur Mcmullen MD at [facility] Medicine Right: Lens [employer] [id number] 05/28/2024 [id number] / [id number] / Procedures Procedure Name Priority Date/Time [...] 01/24/2025 5:08 PM CDT [facility], [address] [place] [address] Transthoracic Echocardiographic Report Patient Name: GARRETT BULLARD E : 1955 (69y 11m) Gender: M Study Date: 01/24/2025 01:20:25 PM Ht(Inch): 71 Wt(Lb): 207.01 BSA: 2.17 Supervisor Bottle House Cleaners: Frantz MckeonTEverardo),[facility] [place] [facility] Provider: SHERRI PHAM Heart Rate: 57 [...] Aly MD - 01/24/2025 [facility], [address] [place] [address] Transthoracic Echocardiographic Report Patient Name: GARRETT BULLARD E : 1955 (69y 11m) Gender: M Study Date: 01/24/2025 01:20:25 PM Ht(Inch): 71 Wt(Lb): 207.01 BSA: 2.17 Supervisor Bottle House Cleaners: Chandu Mckeon,[facility] Location[place] [facility] [place] Provider:SHERRI PHAM Heart Rate: 57 BMI: [...] [ 62.00 - 150.00 ] MV Decel Mnyi776.63 msec [ 104.00 - 258.00 ] LV [...] cm [ 1.71 - 5.00 ] RA Jzqvmx95.60 ml RA Volume Index16.88 ml/m2 IVC Diam2.07 cm AoR Diam 2D 4.20 cm [ 3.10 - 3.70 ] Ao Root Index 1.94 cm/m2 [ 1.00 - 2.00 ] Asc Ao Diam 2D3.34 cm Asc Ao Index1.54 cm/m2 Electronically Signed By: Amber Zambrano MD 01/24/2025 5:07:35 PM CDT us Sherri Pham MD CV ECHO PROCEDURES Final Resu lt from Last 3 Months Insurance MEDICARE [employer] Advance Directives For more information, please contact: [phone] Documents on File Type Date Recorded Patient Offset Printer Expl anation ADVANCE DIRECTIVE 06/30/2024 9:37 AM Power of Larry Car Operator-Medical Care Teams Chief Contract Officer Relationship Specialty Start Date End Date Sherri Hi MD PCP - General Family Practice 01/20/23
--- OUTSIDE RECORDS SUMMARY | 2025-04-20 07:53 | XMS_ITS | Encounter Summary ---
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
--- OUTSIDE RECORDS SUMMARY | 2025-04-20 07:53 | XMS_ITS | Encounter Summary ---
Author Organization [facility] [employer] [facility] Address [address] [place] [address] Phone Care Team Providers Care Railroad Crossing Protection Maintainer Name Role Phone Stef Hi MD Primary Care Provider [phone] Encounter Details Date Type Department Care Team (Late st Contact Info) Description 08/18/2023 E-Visit [facility] Medicine Cardiology [address] [facility] [address] [place] [address] Stef Batista MD [address] [facility] [address] [place], [place] [id number] Diclofenac topical Social History Tobacco Use Types [...] on file Legal Sex Male 3:33 AM RIDE ASSEMBLY 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
--- OUTSIDE RECORDS SUMMARY | 2025-04-20 07:53 | XMS_ITS | Encounter Summary ---
Author Organization [facility] Address [address] [place] [address] Phone Care Team Providers Care Wellness Educator Name Role Phone Rolan Brar DO Primary Care Provider [phone] Stef Hi MD Primary Care Provider [phone] Encounter Details Date Type Department Care Team (Latest Contact Info) Description 04/10/2021 Orders Only [facility] Scanning, Provider Social History Tobacco Use Types Packs/Day Years Used Date Smoking Tobacco: Former Sex and Gender Information Value Date Recorded Sex Assigned at Not on file Legal Sex Male 3:33 AM FASHION 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
--- OUTSIDE RECORDS SUMMARY | 2025-04-20 07:53 | XMS_ITS | Encounter Summary ---
Author Organization [facility] [employer] [facility] Address [address] [place] [address] Phone Care Team Providers Care Records And Information Manager Name Role Phone Stef Hi MD Primary Care Provider [phone] Encounter Details Date Type Department Care Team [...] on file Legal Sex Male 3:33 AM CLIENT RELATIONS ASSOCIATE Gender Identity Not on file Sexual Orientation [...] on filedocumented in this encounter Care Teams Records And Information Manager Relationship Specialty Start Date End Date Stef Hi MD PCP - General Family Practice 01/20/23 documented as of this encounter
--- OUTSIDE RECORDS SUMMARY | 2025-04-20 07:53 | XMS_ITS | Encounter Summary ---
Author Organization [facility] Address [address] [place] [address] Phone Care Team Providers Care Drafter Refrigeration Name Role Phone Zonia Rolan Primary Care Provider [phone] Stef Hi MD Primary Care Provider [phone] Encounter Details Date Type Department Care Team (Late st Contact Info) Description 11/01/2019 Telephone [facility] Cardiology [address] [facility] Advanced Medicine 8th [place] [address] [place] [address] Maurisio Quevedo MD [address] [place] [address] Social History Tobacco Use Types Packs/Day Years Used Date Smoking Tobacco: Former Sex and Gender Information Value Date Recorded Sex Assigned at Not on file Legal Sex Male 3:33 AM NURSING TECH Gender Identity Not on file Sexual Orientation [...] documented as of this encounter Care Teams Drafter Refrigeration Relationship Specialty Start Date End Date Rolan Brar DO PCP - General 11/02/17 01/19/23 Stef Hi MD PCP - General Family Practice 01/20/23 documented as of this encounter
[2025-04-20 08:00] VITALS: BP 175/99
--- NOTE | 2025-04-20 08:00 | PC.NURSE ---
Per Dr. Rust, pts indwelling paiz was removed d/t possible UTI. White purulent discharge present in the uretheral opening as well as on the catheter itself. Urine was not removed from the bag as MD wants a clean catch for urinanalysis.
[2025-04-20] MEDS: SODIUM CHLORIDE 0.9% IV 1,000 ML 999 ML IV CONT (08:08)
[2025-04-20 08:14] LABS: Hematocrit 41.6 % (42.0-52.0); Hemoglobin 14.0 g/dL (14.0-18.0); Immature Granulocyte Percent A 0.3 % (0-0.5); Lymphocytes Absolute Auto 0.76 K/mm3 (0.9-3.2); Mean Corpuscular HGB Conc 33.7 g/dl (32-36); Mean Corpuscular Hemoglobin 29.4 pg (26-34); Mean Corpuscular Volume 87.4 fl (80-100); Nucleated Red Blood Cells Absolute Auto 0.000 K/mm3 (0.0-0.012); Nucleated Red Blood Cells Perc 0.0 % (0.0-0.2); Platelet Count Result 159 k/mm3 (150-375); Red Blood Count 4.76 M/mm3 (4.6-6.20); White Blood Count 7.7 K/mm3 (4.5-10.0)
--- NOTE | 2025-04-20 08:14 | ED.GENADULT ---
HPI - General Adult General Chief complaint: Urogenital-Male Stated complaint: pus coming out of catheter Time Seen by Provider: 04/20/25 07:53 History of Present Illness HPI narrative: this is a 70-year-old male presenting ED for catheter complaints. Patient had a catheter placed several days ago for urinary retention. He has now developed pus from around the catheter. He has some suprapubic discomfort. No fevers chills nausea vomiting diarrhea. No flank pain. Related Data Home Medications ?Medication ?Instructions ?Recorded ?Confirmed ?Last Taken ?Type isosorbide mononitrate 30 mg 30 mg PO DAILY 05/12/19 03/21/25 Unknown History tablet,extended release 24 hr nitroglycerin 0.4 mg sublingual 0.4 mg sublingual Q5M PRN chest 05/12/19 03/21/25 Unknown History tablet (Nitrostat) pain cholecalciferol (vitamin D3) 50 50 mcg PO DAILY 09/30/23 03/21/25 Unknown History mcg (2,000 unit) capsule coenzyme Q10 100 mg capsule 200 mg PO DAILY 09/30/23 03/21/25 Unknown History (CoQ-10) lutein 20 mg capsule 20 mg PO DAILY 09/30/23 03/21/25 Unknown History timolol 0.5 % eye drops 1 drp EACH EYE DAILY 09/30/23 03/21/25 Unknown History metoprolol succinate 25 mg 25 mg PO DAILY 01/03/25 03/21/25 Unknown History tablet,extended release 24 hr cyanocobalamin (vitamin B-12) 3,000 mcg PO DAILY 03/17/25 03/21/25 Unknown History 1,000 mcg tablet Allergies Allergy/AdvReac Type Severity Reaction Status Date / Time tadalafil Allergy Severe Visual Verified 04/20/25 08:03 side effects SHAWNA Inhibitors Allergy Unknown Cough Verified 04/20/25 08:03 hydrocodone Allergy Unknown Spider Verified 04/20/25 08:03 webs on face PMFSH Past Medical History Medical History Sciatica Glaucoma Screening for AAA (abdominal aortic aneurysm) Global amnesia Chronic stable angina Blockage of coronary artery of heart Patellofemoral syndrome of left knee Medial meniscus tear Left knee pain Fatigue Prediabetes Spondylosis Ocular hypertension Chronic pain of both shoulders Essential (primary) hypertension Gastro-esophageal reflux disease without esophagitis Major depressive disorder, single episode, unspecified Blas's neuroma of left foot Surgical History Surgical History H/O bilateral cataract extraction Hx of cholecystectomy H/O hernia repair Family History Family History Mother Family history of coronary artery disease Hypertension Cerebrovascular accident Arthritis Father No family history of cardiovascular disease Diabetes mellitus Sibling No family history of cardiovascular disease Other Family history of congenital heart disease Social History Social History Social History: The patient lives home alone he is . He has 2 children. 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 His son is the power of real estate specialist for healthcare. Code status: Full code Smoking packs per day: 1.5 Smoking cigarettes per day: 30.0 Years smoked: 14 Smoking pack-years: 21.00 Smoking status: Former smoker Second hand tobacco smoke exposure: No Smoking end date: 06/29/86 Alcohol intake: never Substance use: never Substance use type: does not use Lack of Transportation: No Lack of Food: Never True Current Housing: I Have Housing Concerned About Future Housing: No Difficulty Paying Gas/Electric Bills: No Difficulty Paying for Meds: No Currently Unemployed: No Education: Master's Degree or Higher Difficulty w/ Childcare or Family Care: No Living arrangements: with family Occupation/Education: retired Sexual Orientation (if Verbalized by the Patient): Straight or Heterosexual Spiritual care concerns: No Exam Narrative: APPEARANCE: No apparent distress. Head: atraumatic. EYES: EOMI, NOSE: Atraumatic NECK: Trachea midline RESPIRATORY: No increased rate of breathing CARDIOVASCULAR: RRR, ABDOMINAL: Non-distended Soft nontender, no CVA tenderness exam: normal external genitalia. She had a catheter in place with pus leaking around the edges from the urethral meatus MUSCULOSKELETAl: No obvious deformities NEURO: Alert. Moving 4/4 extremities SKIN:: Warm, dry. Normal color PSYCHIATRIC: Normal affect Course Vital Signs Vital signs: Vital Signs Temperature 98.6 F 04/20/25 07:53 Pulse Rate 78 04/20/25 07:53 Respiratory Rate 18 04/20/25 07:53 Pulse Oximetry 97 04/20/25 07:53 Oxygen Delivery Room Air 04/20/25 07:53 Temperature 98.6 F 04/20/25 07:53 Pulse Rate 76 04/20/25 12:47 Respiratory Rate 17 04/20/25 12:47 Blood Pressure 146/92 H 04/20/25 12:47 Pulse Oximetry 99 04/20/25 12:47 Oxygen Delivery Room Air 04/20/25 07:53 Medical Decision Making MDM Narrative Medical decision making narrative: -Course: 70-year-old male presenting with signs of catheter infection. Catheter was removed. patient does not want the catheter replaced due to discomfort. Patient was rehydrated and he was able to urinate although he was still retaining around 270 cc. Patient is not in any pain or discomfort. We discussed placing catheter versus seen how he does without one as he is not draining completely but is not in any discomfort. Patient has opted to not put the catheter back in. He will be discharged on cefdinir for urinary tract infection as well as Flomax. He has follow-up with Urology tomorrow morning. Given return precautions for urinary retention. -DDX includes but is not limited to: Catheter associated infection, UTI/pyelo urethritis, BPH -Co-morbidities complicating care: Vital Signs Vital Signs: Vital Signs Temperature 98.6 F 04/20/25 07:53 Pulse Rate 78 04/20/25 07:53 Respiratory Rate 18 04/20/25 07:53 Pulse Oximetry 97 04/20/25 07:53 Oxygen Delivery Room Air 04/20/25 07:53 Temperature 98.6 F 04/20/25 07:53 Pulse Rate 76 04/20/25 12:47 Respiratory Rate 17 04/20/25 12:47 Blood Pressure 146/92 H 04/20/25 12:47 Pulse Oximetry 99 04/20/25 12:47 Oxygen Delivery Room Air 04/20/25 07:53 Lab Data 04/20/25 08:08 04/20/25 08:08 Labs: Lab Results 04/20/25 04/20/25 Range/Units 08:08 10:54 WBC 7.7 (4.5-10.0) K/mm3 RBC 4.76 (4.6-6.20) M/mm3 Hgb 14.0 (14.0-18.0) g/dL Hct 41.6 L (42.0-52.0) % MCV 87.4 (80-100) fl MCH 29.4 (26-34) pg MCHC 33.7 (32-36) g/dl RDW 13.4 (11.5-14.5) % Plt Count 159 (150-375) k/mm3 MPV 10.5 H (7.4-10.4) fl Immature Gran % (Auto) 0.3 (0-0.5) % Neut % (Auto) 82.7 H (45.5-73.1) % Lymph % (Auto) 9.9 L (18.3-44.2) % Floyd % (Auto) 5.7 (2.6-8.5) % Eos % (Auto) 1.0 (0-4.4) % Baso % (Auto) 0.4 (0.2-1.2) % Lymph # (Auto) 0.76 L (0.9-3.2) K/mm3 Floyd # (Auto) 0.4 (0.1-0.6) K/mm3 Eos # (Auto) 0.1 (0-0.3) K/mm3 Baso # (Auto) 0.0 (0.0-0.1) K/mm3 Abs Immat Gran (auto) 0.02 (0.00-0.031) K/mm3 Absolute Neuts (auto) 6.3 (1.3-6.7) K/mm3 Absolute Nucleated RBC 0.000 (0.0-0.012) K/mm3 Nucleated RBC % 0.0 (0.0-0.2) % Sodium 136 L (137-145) mmol/L Potassium 3.6 (3.4-5.0) mmol/L Chloride 101 (98-107) mmol/L Carbon Dioxide 28 (22-30) mmol/L Anion Gap 7 (4-12) mmol/L BUN 14 (9-20) mg/dL Creatinine 0.69 L (0.7-1.3) mg/dL Estim Creat Clear Calc Not Reportable Estimated GFR > 60 (59 - ) Glucose 150 H (65-110) mg/dL Calcium 8.9 (8.4-10.2) mg/dL Total Bilirubin 1.2 (0.2-1.3) mg/dL AST 36 (17-59) U/L ALT 26 (6-50) U/L Alkaline Phosphatase 102 (38-126) U/L Total Protein 6.6 (6.3-8.2) g/dL Albumin 3.7 (3.5-5.1) g/dL Urine Color Yellow (Yellow) Urine Appearance Turbid H (Clear) Urine pH 5.5 (5.0-9.0) Ur Specific [place] 1.009 (1.001-1.035) Urine Protein 1+ H (Negative) mg/dL Urine Glucose (UA) Negative (Negative) mg/dL Urine Ketones Trace H (Negative) mg/dL Ur Blood (Man) 3+ H (Negative) Urine Nitrate Negative (Negative) Urine Bilirubin Negative (Negative) Urine Urobilinogen 1.0 (<2.0) mg/dL Add Ur Microanalysis Reviewed Leukocyte Esterase Rfl 3+ H (Negative) LÁZARO/UL Urine RBC 21-50 H (0-2) /hpf Urine WBC >100 H (0-3) /hpf Ur Squamous Epith Cells None seen (Few) /hpf Urine Bacteria 1+ H /hpf Urine Casts 3-5 Discharge Plan Discharge Clinical Impression: Acute UTI, Acute urinary retention Patient Disposition: Home Condition: Stable Instructions: Antibiotic Form, Urinary Retention in Men (ED), Dysuria (ED) Additional Instructions: You were seen emergency department for UTI and retention. Please complete the antibiotics as instructed. Use the Flomax. You did not want us to place another catheter, so if you develop suprapubic fullness or pain you will have to return to the ED to have your bladder drained. Please follow-up with the urologist tomorrow morning. Patient Language: Chinese Prescriptions: New cefdinir 300 mg capsule 300 mg PO Q12H Qty: 20 0RF tamsulosin [Flomax] 0.4 mg capsule 0.4 mg PO DAILY Qty: 30 0RF No Action isosorbide mononitrate 30 mg tablet extended release 24 hr 30 mg PO DAILY nitroglycerin [Nitrostat] 0.4 mg tablet, sublingual 0.4 mg SUBLINGUAL Q5M PRN (Reason: chest pain) fluticasone propionate [Flonase Allergy Relief] 50 mcg/actuation spray,suspension 2 spray intranasal DAILY Qty: 16 2RF Rx Instructions: administer into each nostril meclizine 25 mg tablet 25 mg PO TID PRN (Reason: dizziness) Qty: 30 0RF coenzyme Q10 [CoQ-10] 100 mg capsule 200 mg PO DAILY lutein 20 mg capsule 20 mg PO DAILY Patient Comments: TAKES EVERY OTHER DAY Rx Instructions: give with meal/snack cholecalciferol (vitamin D3) 50 mcg (2,000 unit) capsule 50 mcg PO DAILY Patient Comments: TAKES EVERY OTHER DAY lorazepam 1 mg tablet 1 mg PO BID PRN (Reason: anxiety) Qty: 60 0RF timolol 0.5 % drops 1 drp EACH EYE DAILY phenazopyridine 200 mg tablet 200 mg PO TID PRN (Reason: pain) Qty: 20 0RF metoprolol succinate 25 mg tablet extended release 24 hr 25 mg PO DAILY cyanocobalamin (vitamin B-12) 1,000 mcg tablet 3,000 mcg PO DAILY hydrochlorothiazide 12.5 mg Capsule 12.5 mg PO QAM 30 Days Qty: 30 1RF Eliquis 5 mg Tablet 5 mg PO Q12HR 30 Days Qty: 60 1RF aspirin 81 mg capsule 81 mg PO DAILY 30 Days Qty: 30 0RF atorvastatin 40 mg tablet 40 mg PO DAILY Qty: 90 1RF losartan 50 mg tablet See Rx Instructions .ROUTE .COMPLEX Qty: 90 0RF Dose Instruction: TAKE 1 TABLET BY MOUTH DAILY Rx Instructions: TAKE 1 TABLET BY MOUTH DAILY Follow-up/Referrals: Tristian Ferguson MD [Physician, Urology] - 1 Day Referral Note: Urinary retention, catheter associated infection Stef Hi MD [Primary Care Provider, Family Practice]
[2025-04-20 08:35] LABS: Alanine Aminotransferase 26 U/L (6-50); Albumin Level 3.7 g/dL (3.5-5.1); Alkaline Phosphatase 102 U/L (38-126); Anion Gap 7 mmol/L (4-12); Aspartate Amino Transferase 36 U/L (17-59); Bilirubin,Total 1.2 mg/dL (0.2-1.3); Blood Urea Nitrogen 14 mg/dL (9-20); Calcium 8.9 mg/dL (8.4-10.2); Carbon Dioxide 28 mmol/L (22-30); Chloride 101 mmol/L (98-107); Estimated Glomerular Filt Rate > 60; Glucose 150 mg/dL (65-110); Potassium 3.6 mmol/L (3.4-5.0); Sodium 136 mmol/L (137-145); Total Protein 6.6 g/dL (6.3-8.2)
--- OUTSIDE RECORDS SUMMARY | 2025-04-20 08:55 | XMS_ITS | Encounter Summary ---
Author Organization 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
--- OUTSIDE RECORDS SUMMARY | 2025-04-20 08:56 | XMS_ITS | Encounter Summary ---
Author Organization [facility] Address [address] [place] [address] Phone Care Team Providers Care Mining Detail Draftsperson Name Role Phone Zonia Rolan Primary Care Provider [phone] Stef Hi MD Primary Care Provider [phone] Encounter Details Date Type Department Care Team (Late st Contact Info) Description 11/01/2019 Telephone [facility] Cardiology [address] [facility] Advanced Medicine 8th [place] [address] [place] [address] Maurisio Quevedo MD [address] [place] [address] Social History Tobacco Use Types Packs/Day Years Used Date Smoking Tobacco: Former Sex and Gender Information Value Date Recorded Sex Assigned at Not on file 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
--- OUTSIDE RECORDS SUMMARY | 2025-04-20 08:56 | XMS_ITS | Encounter Summary ---
Author Organization 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
--- OUTSIDE RECORDS SUMMARY | 2025-04-20 08:56 | XMS_ITS | Clinical Summary ---
Author Organization [facility] Address [address] [place] [address] Care Team Providers Care Vp Data Name Role Phone Sherri Hi MD Primary Care Provider [phone] [phone] Allergies Active Allergy Reactions Criticality Noted Date Comments Gilberto Inhibitors Cough Low lisinopril Hydrocodone Itching Low Reaction: Itching, [place] like spider webs on face Medications atorvastatin [...] Monitor Assessment & Plan (07/07/2023 3:26 PM SALESPERSON FLORIST SUPPLIES): Excellent vision sc, monitor Assessment & Plan [...] OD Assessment & Plan (07/07/2023 3:26 PM SALESPERSON FLORIST SUPPLIES): IOP today generally stable from previous, some flucuation from visit to visit Today 18/16 Baseline cirrus OCT today with polar changes OD, full OS [place] OCT stable from previous DFE at f/u [...] 24-2 Assessment & Plan (07/22/2022 2:21 PM SALESPERSON FLORIST SUPPLIES): S/P phaco yolie OD, phaco OS for [...] weeks later. Coronary artery disease invo lving [place] coronary artery of [place] heart without angina pectoris 10/15/2020 Increased body mass index (BMI) 11/26/2016 Benign essential hypertension 12/25/2015 Hyperlipidemia LDL goal <70 12/25/2015 Coronary artery disease invo lving [place] coronary artery of [place] heart with angina pectoris 02/09/2015 Obesity with body mass index 30 or greater 07/26 Cardiomyopathy 07/26/2014 Resolved Problems Problem Noted Date Diagnosed Date Resolved Date Nuclear sclerotic cataract of right eye 12/04/2021 02/19/2022 Overview (12/04/2021): Added automatically from request for surgery [id number] (nuclear sclerosis), left 11/19/2021 01/20/2023 Assessment [...] Type Department Care Team Description 04/11/2025 Telephone [facility] Medicine Ophthalmology [address] [place] [address] Zeeshan Decker, OD No Show 03/20/2025 Orders Only [facility] Medical Group Cardiology [address] [facility] [address] [place] [address] Niko Good MD 03/16/2025 7:30 PM CDT Office Visit [facility] Medical [facility] Convenient Care at [address] [address] Bharati Chaudhary NP Dizziness (Primary Dx); Unsteady gait; Elevated blood pressure reading 01/26/2025 Orders Only [facility] Cardiology [address] [facility] Medicine 8th [place] [address] [place] [address] Sherri Pham MD Aortic root dilation (Primary Dx); Aortic valve sclerosis 01/26/2025 Results Follow-Up [facility] Cardiology [address] [facility] Medicine 8th [place] [address] [place] [address] Sherri Pham MD Transthoracic Echo (TTE) Complete W Doppler/CF 01/24/2025 1:30 PM CDT Ancillary Procedure [facility] Cardiology [address] [facility] [address] [place] [address] Aortic root dilation from Last 3 Months [...] on file Legal Sex Male 3:33 AM SALESPERSON FLORIST SUPPLIES Gender Identity Not on file Sexual Orientation [...] 180.3 cm (5' 11) 06/20/2024 10:48 AM SALESPERSON FLORIST SUPPLIES Body Mass Index 28.45 06/20/2024 10:48 AM SALESPERSON FLORIST SUPPLIES Plan of Treatment Health Maintenance Due Date [...] 07/23/2018, 07/17/2014 Medical Devices Implanted Type Area Director Of Hospitality Device Identifier Shelf Expiration Date Model / Serial / Lot [employer] Lens Tecnis Eyhance Iol [id number] - [id number] - [id number] Implanted:Qty: 1 on 02/19/2022 by Onur Mcmullen MD at [facility] Lens Left: Eye [employer] 08/15/2024 [id number] / [id number] / 0 [employer] Lens Iol Posterior Biconvex Optic Single Piece Envista 6.0x12.5 +18.5d Hydrophobic Acrylic [id number] - [id number] - [id number] Implanted:Qty: 1 on 12/18/2021 by Onur Mcmullen MD at [facility] Medicine Right: Lens [employer] [id number] 05/28/2024 [id number] / [id number] / Procedures Procedure Name Priority Date/Time [...] 01/24/2025 5:08 PM CDT [facility], [address] [place] [address] Transthoracic Echocardiographic Report Patient Name: GARRETT BULLARD E : 1955 (69y 11m) Gender: M Study Date: 01/24/2025 01:20:25 PM Ht(Inch): 71 Wt(Lb): 207.01 BSA: 2.17 Open Hearth Worker: Frantz MckeonTEverardo),[facility] [place] [facility] [place] Provider: SHERRI PHAM Heart Rate: 57 [...] Aly MD - 01/24/2025 [facility], [address] [place] [address] Transthoracic Echocardiographic Report Patient Name: GARRETT BULLARD E : 1955 (69y 11m) Gender: M Study Date: 01/24/2025 01:20:25 PM Ht(Inch): 71 Wt(Lb): 207.01 BSA: 2.17 Open Hearth Worker: Chandu Mckeon,[facility] Location: [facility] [place] Order Provider:SHERRI PHAM Heart Rate: 57 BMI: [...] Normal left ventricular systolic function. The EjectionFraction (Coemr's) is measured at 57 %. Normal diastolic [...] [ 62.00 - 150.00 ] MV Decel Rzhs989.63 msec [ 104.00 - 258.00 ] LV [...] cm [ 1.71 - 5.00 ] RA Fctiog55.60 ml RA Volume Index16.88 ml/m2 IVC Diam2.07 cm AoR Diam 2D 4.20 cm [ 3.10 - 3.70 ] Ao Root Index 1.94 cm/m2 [ 1.00 - 2.00 ] Asc Ao Diam 2D3.34 cm Asc Ao Index1.54 cm/m2 Electronically Signed By: Amber Zambrano MD 01/24/2025 5:07:35 PM CDT us Sherri Pham MD CV ECHO PROCEDURES Final Resu lt from Last 3 Months Insurance [employer]ICARE [employer] Advance Directives For more information, please contact: [phone] Documents on File Type Date Recorded Patient Lending Consultant Expl anation ADVANCE DIRECTIVE 06/30/2024 9:37 AM Power of Rug Cleaning Supervisor-Medical Care Teams Vp Data Relationship Specialty Start Date End Date Sherri Hi MD PCP - General Family Practice 01/20/23
--- OUTSIDE RECORDS SUMMARY | 2025-04-20 08:56 | XMS_ITS | Encounter Summary ---
Author Organization [facility] [employer] [facility] [place] [facility] Address [address] [place] [address] Phone Care Team Providers Care Primary Montessori Teacher Name Role Phone Stef Hi MD Primary Care Provider [phone] Encounter Details Date Type Department Care Team (Late st Contact Info) Description 08/18/2023 E-Visit [facility] Medicine Cardiology [address] [facility] [address] [place] [address] Stef Batista MD [address] [facility] [address] [place], [place] [id number] Diclofenac topical Social History Tobacco Use Types [...] on file 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
--- OUTSIDE RECORDS SUMMARY | 2025-04-20 08:56 | XMS_ITS | Encounter Summary ---
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
[2025-04-20] MEDS: TAMSULOSIN HCL 0.4 MG CAPSULE PO (09:01)
[2025-04-20 09:02] VITALS: BP 167/85; PULSE 62; RESP 15; O2SAT 97
--- NOTE | 2025-04-20 09:22 | PC.NURSE ---
Patient denies feeling the urge to go when asked for urine sample. Patient aware we need one and urinal is at bedside
--- NOTE | 2025-04-20 10:17 | PC.NURSE ---
Patient unable to urinate. Bladder scan performed and 280mL of urine found in bladder.
--- NOTE | 2025-04-20 11:16 | PC.NURSE ---
Patient able to void, but not able to empty bladder. patient post-void bladder scan shows >360mL of urine
[2025-04-20 11:47] LABS: Add Urine Microscopic? YES; Appearance Urine Turbid (Clear); Glucose Urine UA Negative (Negative); Leukocyte Esterase Ur 3+ LEU/UL (Negative); Need Manual Microscopic Reviewed; Nitrate Urine Negative (Negative); Specific Grav Ur 1.009 (1.001-1.035)
[2025-04-20] MEDS: cefTRIAXone 1 GM in SODIUM CHLORIDE 0.9% IV 50 ML 100 ML IVPB (12:07)
[2025-04-20 12:47] VITALS: BP 146/92; PULSE 76; RESP 17; O2SAT 99
[2025-04-20 13:19] VITALS: BP 140/87; PULSE 74; RESP 14; O2SAT 99
== END 2025-04-20 13:20 | disposition home or self-care (01) ==
PROVIDERS: Emergency Provider Emergency Medicine; PCP Family Medicine
DX: N39.0 Urinary tract infection, site not specified (principal); R33.9 Retention of urine, unspecified; I10 Essential (primary) hypertension; H40.9 Unspecified glaucoma; R73.03 Prediabetes; K21.9 Gastro-esophageal reflux disease without esophagitis; Z98.42 Cataract extraction status, left eye; Z98.41 Cataract extraction status, right eye; Z87.891 Personal history of nicotine dependence; Z90.49 Acquired absence of other specified parts of digestive tract; Z79.82 Long term (current) use of aspirin; Z79.01 Long term (current) use of anticoagulants; Z79.899 Other long term (current) drug therapy
CPT/HCPCS: 36415; 80053; 81001; 85025; 87086; 87147; 87186; 96361; 96365; 99284; A9270; J0696; J7030

== ENCOUNTER 2025-05-02 12:55 | Outpatient (CLI) | payer MEDICARE, SELFPAY ==
--- NOTE | ~2025-05-02 | MR_ITS ---
MR lumbar spine wo con INDICATION: M54.30 - Sciatica, unspecified side . COMPARISON: None. TECHNIQUE: Multiplanar multisequence MRI of the lumbar spine were obtained without infusion of gadolinium. FINDINGS: [place] is made of five lumbar vertebrae. There is normal alignment of the lumbar vertebrae. The discs and cord signals are normal. No intrathecal mass is seen. There are no areas of pathologic signal intensity within the bone marrow to suggest an acute fracture or neoplasm. The conus medullaris terminates at the normal level. L1-L2: There is annular disc bulging with uncovertebral hypertrophy resulting in mild central canal and mild neural foraminal narrowing. L2-L3: There is disc bulging with facet joint arthropathy resulting in mild central canal and mild neural foraminal narrowing. L3-L4: There is disc bulging with facet joint arthropathy resulting in moderate to severe neural foraminal narrowing and moderate to severe central canal stenosis. L4-L5: There is disc bulging with facet joint arthropathy resulting in severe central canal stenosis. There is moderate to severe bilateral neural foraminal stenosis. L5-S1: There is disc bulging with facet joint arthropathy resulting in severe central canal stenosis and moderate to severe bilateral neural foraminal narrowing. IMPRESSION: Degenerative changes are noted throughout the lumbar spine with disc bulging and facet joint arthropathy with uncovertebral hypertrophy. This is most severe at L4-L5 and L5-S1 where there is resulting severe central canal stenosis and moderate to severe neural foraminal narrowing. There is also moderate to severe central canal stenosis at L3-L4 with moderate to severe neural foraminal stenosis. There is no compression fracture or abnormal cord signal intensity. Reviewed, dictated and finalized at location S. RGRADUATE ADVISOR IMPRESSION: Degenerative changes are noted throughout the lumbar spine with disc bulging an d facet joint arthropathy with uncovertebral hypertrophy. This is most severe a t L4-L5 and L5-S1 where there is resulting severe central canal stenosis and mo derate to severe neural foraminal narrowing. There is also moderate to severe c entral canal stenosis at L3-L4 with moderate to severe neural foraminal stenosi s. There is no compression fracture or abnormal cord signal intensity.
--- NOTE | ~2025-05-02 | XR_ITS ---
XR sacroiliac joints min 3V 05/02/2025 13:28 Indication: Joint pain Procedure: 3 views of the sacroiliac joints Comparison: CT lumbar spine dated 04/05/2025 Findings: There are multiple pelvic calcifications which may represent ureteral or bladder stones. Mild symmetric degenerative changes of the sacroiliac joints. Sacral foramen are symmetric. No fracture or traumatic malalignment. No evidence for ankylosis or erosive change. Impression: 1: Mild symmetric degenerative changes of the sacroiliac joints. 2: Bilateral pelvic calcifications which may represent distal ureteral and/or bladder stones. Recommend correlation with CT urogram. Reviewed, dictated and finalized at location O. ER RAILCAR MECHANIC Impression: 1: Mild symmetric degenerative changes of the sacroiliac joints. 2: Bilateral pelvic calcifications which may represent distal ureteral and/or b ladder stones. Recommend correlation with CT urogram.
== END 2025-05-02 12:56 | disposition home or self-care (01) ==
LOC: GOSHIMG 12:56
PROVIDERS: PCP Nurse Practitioner Family; Visit Provider Family Medicine
DX: M47.816 Spondylosis without myelopathy or radiculopathy, lumbar region (principal); M47.818 Spondylosis without myelopathy or radiculopathy, sacral and sacrococcygeal region; M61.452 Other calcification of muscle, left thigh; M61.451 Other calcification of muscle, right thigh; M54.30 Sciatica, unspecified side; M47.817 Spondylosis without myelopathy or radiculopathy, lumbosacral region; M48.061 Spinal stenosis, lumbar region without neurogenic claudication; M48.07 Spinal stenosis, lumbosacral region
CPT/HCPCS: 72148; 72202

== ENCOUNTER 2025-05-19 19:48 | Emergency (ER) | payer MEDICARE, SELFPAY ==
[2025-05-19] VITALS (18 sets, daily range): BP systolic 145–160; BP diastolic 82–100; PULSE 70; RESP 18; TEMP 37; O2SAT 93–97
--- OUTSIDE RECORDS SUMMARY | 2025-05-19 19:52 | XMS_ITS | Encounter Summary ---
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
--- OUTSIDE RECORDS SUMMARY | 2025-05-19 19:52 | XMS_ITS | Clinical Summary ---
Author Organization [facility] Address [address] [place] [address] Care Team Providers Care Computer Forwarding System Markup Clerk Name Role Phone Stef Hi MD Primary Care Provider [phone] [phone] Allergies Active Allergy Reactions Criticality Noted Date Comments Gilberto Inhibitors Cough Low lisinopril Hydrocodone Itching Low Reaction: Itching, [place] like spider webs on face Medications atorvastatin (LIPITOR) 40 mg tabletIndicatio ns:hyperlipidem ia Take 1 tablet (40 mg total) by mouth every evening 3 8 Active coenzyme Q10 200 mg capsule Take 1 capsule (200 mg total) by mouth every morning Active LORazepam (ATIVAN) 1 mg tablet 1 tab every 4 hours as needed for anxiety 5 Active multivitamin tabletIndicatio ns:Vitamin Deficiency Prevention,taki ng 4 times weekly Take 1 tablet by mouth every morning 4 times weekly Active cholecalciferol (VITAMIN D-3) 2000 unit capsule Take 1 capsule (2,000 Units total) by mouth 3 (three) times a week Three times weekly 5 Active UNABLE TO FIND Take 1 each by mouth every morning Med Name: beta sitosterol 115 mg daily in the morning Active lutein 20 mg tablet Take 20 mg by mouth every morning Active isosorbide mononitrate ER (IMDUR) 30 mg 24 hr tablet TAKE 1 TABLET(30 MG) BY MOUTH DAILY 90 tablet 3 5 Active oxyBUTYnin (DITROPAN) 5 mg tablet Take 1 tablet (5 mg total) by mouth 3 (three) times a day Active nitroglycerin (NITROSTAT) 0.[address] 1 tablet (0.4 mg total) under the tongue every 5 (five) minutes as needed for chest pain May repeat dose up to three times, if chest pain persists after third dose, call 911. 25 tablet 3 5 Active timolol (TIMOPTIC) 0.5 % ophthalmic solutionIndicat ions:Glaucoma, residual angle-closure, bilateral INSTILL 1 DROP IN RIGHT EYE EVERY MORNING 5 mL 5 Active apixaban (ELIQUIS) 5 mg tablet Take 1 tablet (5 mg total) by mouth 2 (two) times a day 60 tablet 11 5 Active metoprolol XL (TOPROL-XL) 25 mg extended release tablet Take 0.5 tablets (12.5 mg total) by mouth daily 5 Active losartan (COZAAR) 50 mg tabletIndicatio ns:hypertension Take 1 tablet (50 mg total) by mouth every morning 0 8 05/09/20 25 Discontin ued(Thera py completed ) clopidogreL (PLAVIX) 75 mg tablet TAKE 1 TABLET(75 MG) BY MOUTH DAILY 90 tablet 3 5 05/08/20 25 Discontin ued(Thera py completed ) metoprolol XL (TOPROL-XL) 25 mg extended release tablet TAKE 1 TABLET(25 MG) BY MOUTH DAILY 90 tablet 3 5 05/09/20 25 Discontin ued(Reord er) Active Problems Problem Noted Date Diagnosed Date [...] Monitor Assessment & Plan (07/07/2023 3:26 PM INSURANCE MARKETING REP): Excellent vision sc, monitor Assessment & Plan [...] OD Assessment & Plan (07/07/2023 3:26 PM INSURANCE MARKETING REP): IOP today generally stable from previous, some flucuation from visit to visit Today 18/16 Baseline cirrus OCT today with polar changes OD, full OS [place] OCT stable from previous DFE at f/u [...] angle OS IOP today trending up OU today, seems to be some variance from visit to visit Per previous Benedict note, start treatment if IOP > 18 OD, OK if low 20s OS given thick pachs Plan: Timolol qAM OD RTC 6 weeks for IOP / ONH OCT / 24-2 Assessment & Plan (07/22/2022 2:21 PM INSURANCE MARKETING REP): S/P phaco yolie OD, phaco OS for [...] off steroids and check MRx Return to hi for IOP check in 3 mo after [...] weeks later. 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 artery of [place] heart with angina pectoris 02/09/2015 Obesity with body mass index 30 or greater 07/26 Cardiomyopathy 07/26/2014 Resolved Problems Problem Noted Date Diagnosed Date Resolved Date Nuclear sclerotic cataract of right eye 12/04/2021 02/19/2022 Overview (12/04/2021): Added automatically from request for surgery [id number] (nuclear sclerosis), left 11/19/2021 01/20/2023 Assessment [...] Encounters Date Type Department Care Team Description 05/09/2025 Orders Only [facility] Cardiology [address] [facility] Advanced Medicine 8th [place] [address] [place] [address] Stef Batista MD 05/08/2025 Orders Only [facility] Cardiology [address] [facility] Advanced [facility] 8th [place] [address] [place] [address] Stef Batista MD 05/05/2025 Telephone [facility] Cardiology [address] [facility] Advanced [facility] 8th [place] [address] [place] [address] Stef Batista MD cardiac clearance/holding eliquis 04/11/2025 Telephone [facility] Medicine Ophthalmology [address] [place] [address] Zeeshan Decker, OD No Show 03/20/2025 Orders Only [facility] Medical Group Cardiology [address] [place] [address] Niko Good MD 03/16/2025 7:30 PM CDT Office Visit [facility] Medical Group Convenient Care at [address] [address] Bharati Chaudhary NP Dizziness (Primary Dx); Unsteady gait; Elevated blood pressure reading from Last 3 Months Surgical History Surgery Date Site/Laterality Comments EYE SURGERY 06/29/2016 - 06/28/2017 Right Laser Procedure CHOLECYSTECTOMY 06/29/2007 - 06/28/2008 CATARACT EXTRACTION W/ INTRAOCULAR LENS IMPLANT 12/18/2021 Right w/Yolieio-Dr. Mcmullen COLONOSCOPY HERNIA REPAIR 06/29/2007 - 06/28/2008 [...] on file Legal Sex Male 3:33 AM INSURANCE MARKETING REP Gender Identity Not on file Sexual Orientation Not on file Last Filed Vital Signs Vital Sign Reading [...] 180.3 cm (5' 11) 06/20/2024 10:48 AM INSURANCE MARKETING REP Body Mass Index 28.45 06/20/2024 10:48 AM INSURANCE MARKETING REP Plan of Treatment Health Maintenance Due Date Last Done Comments Colon Cancer Screening-Colonoscopy 1955 Depression Screening 1955 Hepatitis C Screening 1955 DTaP/Tdap/Td Vaccine (1 - Tdap) 02/09/1964 Hepatitis B Screening 1971 Zoster Vaccine (2 of 3) 06/22/2015 04/27/2015 Abdominal Aortic Aneurysm (A AA) Screen 2018 Well Visit 65+ 2018 Fall Risk Assessment 02/19/2023 02/19/2022 Covid-19 Vaccine (2024- 6 season) 2025 10/23/2021, 03/28/2021, 09/11/2020, Additional history exists Influenza Vaccine (#1) 2025 , 04/08/2019, 04/28/2017, Additional history exists Pneumococcal vaccine 65+ Completed 020, 07/23/2018, 07/17/2014 Medical Devices Implanted Type Area Continuous Wave Operator Device Identifier Shelf Expiration Date Model / Serial / Lot [employer] Lens Tecnis Eyhance Iol [id number] - [id number] - [id number] Implanted:Qty: 1 on 02/19/2022 by Onur Mcmullen MD at [facility] Lens Left: Eye [employer] 08/15/2024 [id number] / [id number] / 0 [employer] Lens Iol Posterior Biconvex Optic Single Piece Envista 6.0x12.5 +18.5d Hydrophobic Acrylic [id number] - [id number] - [id number] Implanted:Qty: 1 on 12/18/2021 by Onur Mcmullen MD at [facility] Medicine Right: Lens [employer] [id number] 05/28/2024 [id number] / [id number] / Procedures Procedure Name Priority Date/Time Associated Diagnosis Comments CARDIOLOGY DOCUMENT SCAN Routine 03/19/2025 2:49 PM CDT CARDIOLOGY DOCUMENT SCAN Routine 03/18/2025 2:47 PM CDT from Last 3 Months Results * Cardiology Document Scan (03/19/2025 2:49 PM CDT) Anatomical Region Laterality Modality Other us Niko Good MD CV CARDIAC SERVICES PROC EDURES Final Result * Cardiology Document Scan (03/18/2025 2:47 PM CDT) Anatomical Region Laterality Modality Other us Niko Good MD CV CARDIAC SERVICES PROC EDURES Final Result from Last 3 Months Insurance MEDICARE [employer] INSURANCE MEDICARE [employer] Advance Directives For more information, please contact: [phone] Documents on File Type Date Recorded Patient Lawn And Tree Service Spray Supervisor Expl anation ADVANCE DIRECTIVE 06/30/2024 9:37 AM Power of Forging Press Setter Up-Medical Care Teams Computer Forwarding System Markup Clerk Relationship Specialty Start Date End Date Stef Hi MD PCP - General Family Practice 01/20/23
--- OUTSIDE RECORDS SUMMARY | 2025-05-19 19:52 | XMS_ITS | Encounter Summary ---
Author Organization [facility] Address [address] [place] [address] Phone Care Team Providers Care Fingerprint Classifier Name Role Phone Stef Hi MD Primary Care Provider [phone] Encounter Details Date Type Department Care Team (Late st Contact Info) Description 08/18/2023 E-Visit [facility] Medicine Cardiology [address] [facility] [address] [place] [address] Stef Batista MD [address] [facility] [address] [place], [place] [id number] Diclofenac topical Social History Tobacco Use Types [...] on file Legal Sex Male 3:33 AM NNPS Gender Identity Not on file Sexual Orientation Not on file documented as of this encounter Plan of Treatment Not on file documented as of this encounter Visit Diagnoses Not on filedocumented in this encounter Care Teams Fingerprint Classifier Relationship Specialty Start Date End Date Stef Hi MD PCP - General Family Practice 01/20/23 documented as of this encounter
--- OUTSIDE RECORDS SUMMARY | 2025-05-19 19:52 | XMS_ITS | Encounter Summary ---
Author Organization [facility] Address [address] [place] [address] Phone Care Team Providers Care Milk Vendor Name Role Phone Zonia Rolan Primary Care Provider [phone] Stef Hi MD Primary Care Provider [phone] Encounter Details Date Type Department Care Team (Late st Contact Info) Description 11/01/2019 Telephone [facility] Cardiology [address] [facility] Advanced Medicine 8th [place] [address] [place] [address] Maurisio Quevedo MD [address] [place] [address] Social History Tobacco Use Types Packs/Day Years Used Date Smoking Tobacco: Former Sex and Gender Information Value Date Recorded Sex Assigned at Not on file Legal Sex Male 3:33 AM ETL LEAD Gender Identity Not on file Sexual Orientation [...] documented as of this encounter Care Teams Milk Vendor Relationship Specialty Start Date End Date Rolan Brar DO PCP - General 11/02/17 01/19/23 Stef Hi MD PCP - General Family Practice 01/20/23 documented as of this encounter
--- OUTSIDE RECORDS SUMMARY | 2025-05-19 19:52 | XMS_ITS | Encounter Summary ---
Author Organization [facility] Address [address] [place] [address] Phone Care Team Providers Care Feather Mixer Name Role Phone Rolan Brar DO Primary Care Provider [phone] Stef Hi MD Primary Care Provider [phone] Encounter Details Date Type Department Care Team (Latest Contact Info) Description 04/10/2021 Orders Only [facility] Scanning, Provider Social History Tobacco Use Types Packs/Day Years Used Date Smoking Tobacco: Former Sex and Gender Information Value Date Recorded Sex Assigned at Not on file 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
[2025-05-19 21:46] LABS: Hematocrit 38.4 % (42.0-52.0); Hemoglobin 12.5 g/dL (14.0-18.0); Immature Granulocyte Percent A 0.1 % (0-0.5); Lymphocytes Absolute Auto 1.22 K/mm3 (0.9-3.2); Mean Corpuscular HGB Conc 32.6 g/dl (32-36); Mean Corpuscular Hemoglobin 29.2 pg (26-34); Mean Corpuscular Volume 89.7 fl (80-100); Nucleated Red Blood Cells Absolute Auto 0.000 K/mm3 (0.0-0.012); Nucleated Red Blood Cells Perc 0.0 % (0.0-0.2); Platelet Count Result 150 k/mm3 (150-375); Red Blood Count 4.28 M/mm3 (4.6-6.20); White Blood Count 7.4 K/mm3 (4.5-10.0)
[2025-05-19 21:59] LABS: Alanine Aminotransferase 26 U/L (6-50); Albumin Level 3.5 g/dL (3.5-5.1); Alkaline Phosphatase 96 U/L (38-126); Anion Gap 4 mmol/L (4-12); Aspartate Amino Transferase 30 U/L (17-59); Bilirubin,Total 0.5 mg/dL (0.2-1.3); Blood Urea Nitrogen 20 mg/dL (9-20); Calcium 8.3 mg/dL (8.4-10.2); Carbon Dioxide 28 mmol/L (22-30); Chloride 103 mmol/L (98-107); Estimated Glomerular Filt Rate > 60; Glucose 102 mg/dL (65-110); Potassium 3.6 mmol/L (3.4-5.0); Sodium 135 mmol/L (137-145); Total Protein 6.1 g/dL (6.3-8.2)
--- NOTE | 2025-05-19 22:01 | ED.GENADULT ---
HPI - General Adult General Chief complaint: Extremity Problem,Nontraumatic Stated complaint: R leg swelling, tingling Time Seen by Provider: 05/19/25 20:13 History of Present Illness HPI narrative: 70-year-old male presenting with unilateral right ankle swelling that began this morning. Patient reports he had surgery for his bladder on a Thursday. He reports that he is on Eliquis for AFib but was taken off of it prior to surgery and instructed to restart it tomorrow. He reports bilateral numbness/tingling in his feet however this is his baseline as he has a known lumbar stenosis diagnosis. There is no recent history of trauma to his ankle. He denies fever/chills or chest pain/shortness of breath. Related Data Home Medications ?Medication ?Instructions ?Recorded ?Confirmed ?Last Taken ?Type isosorbide mononitrate 30 mg 30 mg PO DAILY 05/12/19 03/21/25 Unknown History tablet,extended release 24 hr nitroglycerin 0.4 mg sublingual 0.4 mg sublingual Q5M PRN chest 05/12/19 03/21/25 Unknown History tablet (Nitrostat) pain cholecalciferol (vitamin D3) 50 50 mcg PO DAILY 09/30/23 03/21/25 Unknown History mcg (2,000 unit) capsule coenzyme Q10 100 mg capsule 200 mg PO DAILY 09/30/23 03/21/25 Unknown History (CoQ-10) lutein 20 mg capsule 20 mg PO DAILY 09/30/23 03/21/25 Unknown History timolol 0.5 % eye drops 1 drp EACH EYE DAILY 09/30/23 03/21/25 Unknown History metoprolol succinate 25 mg 25 mg PO DAILY 01/03/25 03/21/25 Unknown History tablet,extended release 24 hr cyanocobalamin (vitamin B-12) 3,000 mcg PO DAILY 03/17/25 03/21/25 Unknown History 1,000 mcg tablet Allergies Allergy/AdvReac Type Severity Reaction Status Date / Time tadalafil Allergy Severe Visual Verified 04/20/25 08:03 side effects SHAWNA Inhibitors Allergy Unknown Cough Verified 04/20/25 08:03 hydrocodone Allergy Unknown Spider Verified 04/20/25 08:03 webs on face Review of Systems Review of Systems: All systems reviewed & are unremarkable except as noted in HPI and below PMFSH Past Medical History Medical History Sciatica Glaucoma Screening for AAA (abdominal aortic aneurysm) Global amnesia Chronic stable angina Blockage of coronary artery of heart Patellofemoral syndrome of left knee Medial meniscus tear Left knee pain Fatigue Prediabetes Spondylosis Ocular hypertension Chronic pain of both shoulders Essential (primary) hypertension Gastro-esophageal reflux disease without esophagitis Major depressive disorder, single episode, unspecified Blas's neuroma of left foot Surgical History Surgical History H/O bilateral cataract extraction Hx of cholecystectomy H/O hernia repair Family History Family History Mother Family history of coronary artery disease Hypertension Cerebrovascular accident Arthritis Father No family history of cardiovascular disease Diabetes mellitus Sibling No family history of cardiovascular disease Other Family history of congenital heart disease Social History Social History Social History: The patient lives home alone he is . He has 2 children. 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 His son is the power of trust and estates attorney for healthcare. Code status: Full code Smoking packs per day: 1.5 Smoking cigarettes per day: 30.0 Years smoked: 14 Smoking pack-years: 21.00 Smoking status: Former smoker Second hand tobacco smoke exposure: No Smoking end date: 06/29/86 Alcohol intake: never Substance use: never Substance use type: does not use Lack of Transportation: No Lack of Food: Never True Current Housing: I Have Housing Concerned About Future Housing: No Difficulty Paying Gas/Electric Bills: No Difficulty Paying for Meds: No Currently Unemployed: No Education: Master's Degree or Higher Difficulty w/ Childcare or Family Care: No Living arrangements: with family Occupation/Education: retired Sexual Orientation (if Verbalized by the Patient): Straight or Heterosexual Spiritual care concerns: No Exam Narrative: GENERAL: Well-appearing, well-nourished, and in no acute distress. HEAD: Normocephalic, atraumatic. EYES: PERRLA and EOMI. ENT: Nares clear, no rhinorrhea or epistaxis. Mucous membranes moist. Oropharynx without tonsillar hypertrophy exudate or other lesions. Bilateral TMs pearly lee non-bulging NECK: Supple. No adenopathy or masses. No carotid bruits or JVD CHEST: Clear to auscultation. No respiratory distress. No wheezes rales or rhonchi HEART: Regular rate and rhythm. No murmur heard. Normal peripheral pulses. ABDOMEN: Soft, nontender, nondistended, normal active bowel sounds. EXTREMITIES: Right ankle swelling but no ecchymosis. No pitting. 5/5 strength, good range of motion, intact sensation, and good pulses. SKIN: Warm, dry, no rash. NEURO: No focal deficits. Alert and oriented x3. PSYCH: Normal mood and affect Course Vital Signs Vital signs: Vital Signs Temperature 98.6 F 05/19/25 20:00 Pulse Rate 70 05/19/25 20:00 Respiratory Rate 18 05/19/25 20:00 Blood Pressure 150/100 H 05/19/25 20:00 Pulse Oximetry 96 05/19/25 20:00 Oxygen Delivery Room Air 05/19/25 20:00 Temperature 98.6 F 05/19/25 20:00 Pulse Rate 70 05/19/25 20:00 Respiratory Rate 18 05/19/25 22:31 Blood Pressure 156/84 H 05/19/25 22:31 Pulse Oximetry 94 05/19/25 22:31 Oxygen Delivery Room Air 05/19/25 20:00 Medical Decision Making [facility] Narrative Medical decision making narrative: 70-year-old male presenting with unilateral right ankle swelling that began this morning. Patient reports he had surgery for his bladder this last Thursday. He reports that he is on Eliquis for AFib but was taken off of it prior to surgery and instructed to restart tomorrow. He reports bilateral numbness/tingling in his feet however this is his baseline as he has a known lumbar stenosis diagnosis. There is no recent history of trauma to his ankle. He denies fever/chills or chest pain/shortness of breath. Exam shows no deformity or redness. Negative Homans sign. No history of gout. Able to bear weight and ambulate. No signs of DVT or infection. D-dimer and other labs WNL. X-ray not indicated as there has been no history of trauma. Will treat supportively. Advised rest, ice, compression, elevation, and analgesics as needed. Provided return precautions for increasing swelling, redness, pain or inability to bear weight. Patient agrees with discussion and after shared medical decision making agrees with plan of care. All questions were answered to the patient's satisfaction. Medical Records Medical records reviewed: Yes I reviewed the external patient's medical records. Vital Signs Vital Signs: Vital Signs Temperature 98.6 F 05/19/25 20:00 Pulse Rate 70 05/19/25 20:00 Respiratory Rate 18 05/19/25 20:00 Blood Pressure 150/100 H 05/19/25 20:00 Pulse Oximetry 96 05/19/25 20:00 Oxygen Delivery Room Air 05/19/25 20:00 Temperature 98.6 F 05/19/25 20:00 Pulse Rate 70 05/19/25 20:00 Respiratory Rate 18 05/19/25 22:31 Blood Pressure 156/84 H 05/19/25 22:31 Pulse Oximetry 94 05/19/25 22:31 Oxygen Delivery Room Air 05/19/25 20:00 Lab Data Lab results reviewed: Yes I reviewed the patient's lab results. 05/19/25 21:41 05/19/25 21:41 Labs: Lab Results 05/19/25 Range/Units 21:41 WBC 7.4 (4.5-10.0) K/mm3 RBC 4.28 L (4.6-6.20) M/mm3 Hgb 12.5 L (14.0-18.0) g/dL Hct 38.4 L (42.0-52.0) % MCV 89.7 (80-100) fl MCH 29.2 (26-34) pg MCHC 32.6 (32-36) g/dl RDW 13.9 (11.5-14.5) % Plt Count 150 (150-375) k/mm3 MPV 10.3 (7.4-10.4) fl Immature Gran % (Auto) 0.1 (0-0.5) % Neut % (Auto) 74.3 H (45.5-73.1) % Lymph % (Auto) 16.5 L (18.3-44.2) % Jenkins % (Auto) 6.5 (2.6-8.5) % Eos % (Auto) 2.3 (0-4.4) % Baso % (Auto) 0.3 (0.2-1.2) % Lymph # (Auto) 1.22 (0.9-3.2) K/mm3 Jenkins # (Auto) 0.5 (0.1-0.6) K/mm3 Eos # (Auto) 0.2 (0-0.3) K/mm3 Baso # (Auto) 0.0 (0.0-0.1) K/mm3 Abs Immat Gran (auto) 0.01 (0.00-0.031) K/mm3 Absolute Neuts (auto) 5.5 (1.3-6.7) K/mm3 Absolute Nucleated RBC 0.000 (0.0-0.012) K/mm3 Nucleated RBC % 0.0 (0.0-0.2) % D-Dimer < 0.27 (<0.48) ug/mL Sodium 135 L (137-145) mmol/L Potassium 3.6 (3.4-5.0) mmol/L Chloride 103 (98-107) mmol/L Carbon Dioxide 28 (22-30) mmol/L Anion Gap 4 (4-12) mmol/L BUN 20 (9-20) mg/dL Creatinine 0.74 (0.7-1.3) mg/dL Estim Creat Clear Calc Not Reportable Estimated GFR > 60 (59 - ) Glucose 102 (65-110) mg/dL Calcium 8.3 L (8.4-10.2) mg/dL Total Bilirubin 0.5 (0.2-1.3) mg/dL AST 30 (17-59) U/L ALT 26 (6-50) U/L Alkaline Phosphatase 96 (38-126) U/L Total Protein 6.1 L (6.3-8.2) g/dL Albumin 3.5 (3.5-5.1) g/dL Discharge Plan Discharge Clinical Impression: Right ankle swelling Patient Disposition: Home Condition: Stable Instructions: Swollen Ankle Joint (ED) Additional Instructions: Return to the ED if you experience increased pain/swelling despite rest and elevation, increased redness, warmth, or streaking up the leg, fevers/chills, new numbness/tingling or coldness to the foot, inability to bear weight or worsening difficulty walking, shortness of breath/chest pain, or any other symptoms concerning to you. Wear SHAWNA wrap as needed. Ice and elevate extremity. Take anti-inflammatories (Aleve, Ibuprofen, Naproxen, etc) or Tylenol as needed for pain. Follow up with your doctor for further care. Patient Language: Moroccan Prescriptions: No Action isosorbide mononitrate 30 mg tablet extended release 24 hr 30 mg PO DAILY nitroglycerin [Nitrostat] 0.4 mg tablet, sublingual 0.4 mg SUBLINGUAL Q5M PRN (Reason: chest pain) fluticasone propionate [Flonase Allergy Relief] 50 mcg/actuation spray,suspension 2 spray intranasal DAILY Qty: 16 2RF Rx Instructions: administer into each nostril meclizine 25 mg tablet 25 mg PO TID PRN (Reason: dizziness) Qty: 30 0RF coenzyme Q10 [CoQ-10] 100 mg capsule 200 mg PO DAILY lutein 20 mg capsule 20 mg PO DAILY Patient Comments: TAKES EVERY OTHER DAY Rx Instructions: give with meal/snack cholecalciferol (vitamin D3) 50 mcg (2,000 unit) capsule 50 mcg PO DAILY Patient Comments: TAKES EVERY OTHER DAY lorazepam 1 mg tablet 1 mg PO BID PRN (Reason: anxiety) Qty: 60 0RF timolol 0.5 % drops 1 drp EACH EYE DAILY phenazopyridine 200 mg tablet 200 mg PO TID PRN (Reason: pain) Qty: 20 0RF metoprolol succinate 25 mg tablet extended release 24 hr 25 mg PO DAILY cyanocobalamin (vitamin B-12) 1,000 mcg tablet 3,000 mcg PO DAILY hydrochlorothiazide 12.5 mg Capsule 12.5 mg PO QAM 30 Days Qty: 30 1RF Eliquis 5 mg Tablet 5 mg PO Q12HR 30 Days Qty: 60 1RF aspirin 81 mg capsule 81 mg PO DAILY 30 Days Qty: 30 0RF cefdinir 300 mg capsule 300 mg PO Q12H Qty: 20 0RF tamsulosin [Flomax] 0.4 mg capsule 0.4 mg PO DAILY Qty: 30 0RF atorvastatin 40 mg tablet 40 mg PO DAILY Qty: 90 1RF losartan 50 mg tablet See Rx Instructions .ROUTE .COMPLEX Qty: 90 0RF Dose Instruction: TAKE 1 TABLET BY MOUTH DAILY Rx Instructions: TAKE 1 TABLET BY MOUTH DAILY Follow-up/Referrals: Stef Hi MD [Primary Care Provider, Family Practice]
== END 2025-05-19 22:51 | disposition home or self-care (01) ==
PROVIDERS: PCP Family Medicine
DX: M79.89 Other specified soft tissue disorders (principal); I48.91 Unspecified atrial fibrillation; I10 Essential (primary) hypertension; Z79.01 Long term (current) use of anticoagulants; Z87.891 Personal history of nicotine dependence
CPT/HCPCS: 36415; 80053; 85025; 85380; 99283

== ENCOUNTER 2025-06-20 20:04 | Emergency (ER) | payer MEDICARE, SELFPAY ==
--- OUTSIDE RECORDS SUMMARY | 2025-06-19 11:30 | XMS_ITS | Encounter Summary ---
Author Organization 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 Dyslipidemia Primary hypertension Procedures US Abdominal Aortic Aneurysm Screening US Abdominal Aortic Aneurysm Screening Stef Batista MD [address] [place] [address] Phone: tel: fax: External Order Referral ID Status Reason Start Date Expiration Date V isits Requested Visits Authorized [id number] Pending Review 06/19/2025 07/19/2026 1 1 ND HAND Encounter Details Date Type Department Care Team (Late st Contact Info) Description 06/19/2025 11:30 AM SECOND HAND Office Visit [facility] Card[facility] [address] [place] [address] Stef Batista MD [address] [place] [address] 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 (Primary Dx); Dyslipidemia; Primary hypertension; Orthostatic lightheadedness; TIA (transient ischemic attack); Aortic root dilation Social History Tobacco Use Types Packs/Day Years [...] on file Legal Sex Male 3:33 AM SECOND HAND Gender Identity Not on file Sexual Orientation Not on file documented as of this encounter Last Filed Vital Signs Vital Sign Reading Time Taken Comments Blood Pressure 152/87 06/19/2025 11:27 AM SECOND HAND Pulse 68 06/19/2025 11:27 AM SECOND HAND Temperature 36.6 C (97.9 F) 06/19/2025 11:27 AM SECOND HAND Respiratory Rate - - Oxygen Saturation 97% 06/19/2025 11:27 AM SECOND HAND Inhaled Oxygen Concentration - - Weight 89.4 kg (197 lb) 06/19/2025 11:27 AM SECOND HAND Height 180.3 cm (5' 11) 06/19/2025 11:27 AM SECOND HAND Body Mass Index 27.48 06/19/2025 11:27 AM SECOND HAND documented in this encounter Patient Instructions * Patient Instructions* Stef Batista MD - 06/19/2025 11:30 AM SECOND HAND Abdominal aortic ultrasound to screen for aneurysm given prior history of tobacco use. Please reach out if your brother is also diagnosed with an intracerebral aneurysm. Will resume losartan at 25 mg daily. Please reach out for any concerns. ND HAND ND HAND ND HAND documented in this encounter Ordered Prescriptions Prescription Sig Dispense Quantity Refills Last Filled Start Date End Date losartan (COZAAR) 25 mg tablet Take 1 tablet (25 mg total) by mouth daily 30 tablet 11 06/19/2025 documented in this encounter Progress Notes * Stef Batista MD - 06/19/2025 11:30 AM CST Images from the original note were not included. Department of Medicine Stef Batista MD, MPHS, [facility] Cardiovascular Division animal care giver Patient Name: Jose Bullard : 1955 Date of Service: 06/19/2025 Primary Care Provider: Stef Hi MD Referring Provider: Stef Hi MD Jose Bullard is a 70 y.o. man with history of coronary artery disease with distal LAD lesion managed medically (coronary CTA 06/2014 with long segment distal LAD lesion with greater than 70% stenosis, just distal to bifurcation of the second diagonal), hypertension, dyslipidemia, diabetes, mild ODSA, and prior transient global amnesia (last in 2017) who presents for follow-up. Last visit was 1 year ago. This patient has verbally consented to recording this visit in order to utilize AI technology in generating this note. History of Present Illness Jose Bullard is a 70 year old male with coronary artery disease who presents for follow-up regarding cardiovascular issues and medication management. He was admitted in February of last year with dizziness, raising concerns for a stroke or TIA. An echocardiogram revealed a patent foramen ovale (PFO) with shunting. His medications were adjusted, substituting Eliquis for clopidogrel. There was discussion of possible future PFO closure. He experienced lightheadedness and slow heart rates, leading to the discontinuation of losartan and reduction of metoprolol, which improved his hypotension symptoms. However, his blood pressure and heart rate have since increased, with seated blood pressures in the 120s-130s/80s-90s and heart rates in the 50s-60s, and standing blood pressures in the 100s-110s/70s with heart rates in the 60s-70s. He spends more time seated than standing. He denies any new symptoms such as shortness of breath, chest discomfort, or palpitations, except for one episode of angina while walking on a chilly day. Hehas not experienced further episodes of atrial fibrillation as previously noted by his Fitbit, though he occasionally feels a 'skip a beat, heavy beat' sensation. He has severe back problems and underwent a bladder procedure to remove stones, which has led to discontinuation of exercise. He self-catheterizes nightly due to incomplete bladder emptying. He has atorn left knee meniscus, which limits his physical activity. 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 He uses Advil (together with Nexium given DOAC use) prn for back pain.. He has a history of transient global amnesia and has an upcoming neurologist appointment. Social history: in 2019. Family history: Mother with HTN, had an IA at age 58, at age 66 of a hemorrhagic stroke. Mother with hemorrhagic stroke and abdominal aortic aneurysm. Brother's son with intracerebral aneurysm and abdominal vs. Thoracic aortic aneurysm. Father with CAD s/p CABG in his late 60s, lives to age 90. Had brittle DM. Current Outpatient Medications: apixaban, 5 mg, oral, BID atorvastatin, 40 mg, oral, QPM cholecalciferol, 2,000 Units, oral, 3x weekly coenzyme Q10, 200 mg, oral, QAM dutasteride, isosorbide mononitrate ER, TAKE 1 TABLET(30 MG) BY MOUTH DAILY LORazepam, 1 tab every 4 hours as needed for anxiety lutein, 20 mg, oral, QAM metoprolol XL, 12.5 mg, oral, Daily multivitamin, 1 tablet, oral, QAM nitroglycerin, 0.4 mg, sublingual, Q5 Min PRN oxyBUTYnin, 5 mg, oral, TID tamsulosin, timolol, INSTILL 1 DROP IN RIGHT EYE EVERY MORNING UNABLE TO FIND, 1 each, oral, QAM He is allergic to scarlet inhibitors and hydrocodone. PHYSICAL EXAM: BP 152/87 Pulse 68 Temp 36.6 ??C (97.9 ??F) Ht 180.3 cm (5' 11) Wt 89.4 kg (197 lb) NdT700% BMI 27.48 kg/m?? BP Readings from Last 3 Encounters: 06/19/25 152/87 03/16/25 150/88 06/20/24 151/89 Wt Readings from Last 3 Encounters: 06/19/25 89.4 kg (197 lb) 03/16/25 92.5 kg (204 lb) 06/20/24 100.2 kg (221 lb) Body mass index is 27.48 kg/m??. General: middle-aged white man, well-nourished, no acute distress HEENT: Extraocular muscles intact, conjunctivae clear Neck: Supple. No goiter. Jugular venous pressure is normal. No carotid bruits. Brisk carotid upstrokes. Respiratory: Breathing comfortably. Lungs clear to auscultation bilaterally; no wheezing/rales/rhonchi. Cardiovascular: bradycardic and regular rhythm, normal S1 and S2. No S3 or S4. No murmurs or rubs. Peripheral pulses: 2+ radial Abdomen: soft, non-tender, no palpable masses, no hepatosplenomegaly Extremities: no cyanosis or clubbing. No edema Musculoskeletal: no obvious joint deformities Skin: warm and dry; no rashes or bruising noted on exposed areas Psychiatric: normal affect and mood Neurologic: awake/alert, no gross focal deficits RESULTS: I have personally reviewed the following: No results found for: SODIUM, POTASSIUM, BUNSER, CREATININE No results found for: CHOL, TRIG, HDL, LDL, LDLCALC, LDLDIRECT Outside labs reviewed: 05/23/22: Glucose 86, BUN 19, Cr 0.89, eGFR 93, Na 137, K 4.1 all normal. Hgb A1c 5.9. Chol 94, HDL 40, TG 67, LDL 40 all normal. TSH normal. 11/27/22: chol 99, TG 61, LDL 48 at goal. HDL 37 low. Hgb A1c 5.8% good. Na 141, k 4.0, bun 19, cr 0.91, egfr91, glucose 92, all normal. Outside labs 09/25/23: Glucose 92, BUN 21, Cr 0.87, egfr 93, na 139, K 4.4 normal. Hgb A1c 5.9% c/w prediabetes Chol 86, HDL 41, TG 40, Ldl 34 all at goal. Hgb 13.6 normal. ECG 06/02/22: sinus bradycardia at 52 bpm, normal axis. No ischemic changes. 03/2024 hgb 14.8, plt 175. Na 140, K 3.9, BUN 16, Cr 0.9, egfr 93 ASSESSMENT/PLAN: Assessment & Plan Coronary artery disease with stable angina He had a long-segment distal LAD lesion on CT 2014. Continue atorvastatin, Imdur, metoprolol xl 12.5 mg daily, prn SL NTG. Timolol eye drops are likelyalso contributing to bradycardia. He is on a DOAC. May consider pre-medication with sl ntg prior to activity to prevent angina. He has rare angina symptoms, with one episode during a walk on a chilly day. No recent chest discomfort, shortness of breath, or palpitations. Previous echocardiogram showed normal systolic function.No new symptoms suggestive of worsening coronary artery disease. - Continue current management and monitor for any new symptoms. Primary hypertension Blood pressure readings at home show seated readings in the 120s-130s/80s-90s and standing readingsin the 100s-110s/70s. Heart rate ranges from 50s-60s when seated and 60s-70s when standing. Previous adjustments to losartan and metoprolol improved orthostatic symptoms but led to higher blood pressure. Current stressors include back and bladder issues, potentially contributing to elevated blood pressure. - Will resume losartan at a lower dose (25 mg daily; previously 50 mg) to manage blood pressure. - Continue metoprolol at 12.5 mg. Orthostatic symptoms Improvement in orthostatic symptoms after adjusting losartan and metoprolol. Current blood pressureand heart rate readings show some orthostatic changes but not meeting criteria for orthostatic hypotension on most days. Monitor symptoms with adding back losartan at a lower dose. Recent neurologic spell in 02/2025 with TIA vs. CVA PFO identified with shunting. Given his age and vascular risk factors, traditional cerebrovascular disease seems more likely than PFO-related paradoxical embolism. However, he had previously noted possible afib on his Fitbit, so this is another potential etiology. Eliquis was started due to potential embolic event and previous AFib episode. No current bleeding issues reported. We discussed the risks/benefits of Eliquis and consideration for AFib monitoring to make a definitive diagnosis to support anticoagulation. Discussed risk of GI bleed with NSAIDs addedto Eliquis use. - Continue Eliquis for anticoagulation for now. - Will consider 30-day nurse monitoring to assess for AFib. - Will discuss potential for longer-term monitoring with implanted loop recorder if needed. He will let us know if he wishes to proceed with the monitor. He will be seeing neurology; I asked him to solicit their opinion regarding DOAC vs antiplatelet agent. Dyslipidemia Continue atorvastatin. Lipids at goal 04/2022, 11/2022, 08/2023. 03/2024 Chol 86, TG 40, HDL 41, LDL 34. Dilated aortic root on echo 12/2023 (4.0 cm). 12/2024 4.2 cm, stable. Repeat echo 12/2025. ? Afib noted by Vera 05/2024, with associated palpitations [id number] score = 3 (HTN, age, CAD; also with pre-DM). Now on apixaban. Discussed more definitive monitoring--see above. Primary prevention--check abd aortic ultrasound given h/o tobacco use. Plan: Abdominal aortic ultrasound to screen for aneurysm given prior history of tobacco use. Please reach out if your brother is also diagnosed with an intracerebral aneurysm. [If so, would pursue screening imaging for him given 2 first degree relatives with intracerebral aneurysms] Will resume losartan at 25 mg daily. Please reach out for any concerns. Return to clinic in 1 year, or sooner as needed. Thank you for allowing me to participate in Mr. Bullard's care. Please feel free to call me at with any questions or concerns. Respectfully, Stef Batista MD, MPHS, [facility] animal care giver Cardiovascular Division [employer] --- Please note: This note was generated in part using voice-recognition software and may contain die presser errors. 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 Medication Sig Dispense Quantity Refills Last Filled Start D ate End Date dutasteride (AVODART) 0.5 mg capsule 04/21/2025 tamsulosin (FLOMAX) 0.4 mg extended release capsule 04/20/2025 added in this encounter Care Teams Cane Weigher Relationship Specialty Start Date End Date Stef Hi MD PCP - General Family Practice 01/20/23 documented as of this encounter
--- OUTSIDE RECORDS SUMMARY | 2025-06-20 20:06 | XMS_ITS | Encounter Summary ---
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
--- OUTSIDE RECORDS SUMMARY | 2025-06-20 20:06 | XMS_ITS | Encounter Summary ---
Author Organization [facility] Address [address] [place] [address] Phone Care Team Providers Care Telecommunications Network Engineer Name Role Phone Stef Hi MD Primary Care Provider [phone] Reason for Visit * Reason Onset Date Comments r/s appt 06/06/2025 sooner appt 06/06/2025 Encounter Details Date Type Department Care Team (Late st Contact Info) Description 06/06/[address] 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 Please call back and advise if sooner appt is available [phone] AINABLE AGRICULTURE SPECIALIST documented in this encounter Plan of Treatment Not on file documented as of this encounter Visit Diagnoses Not on filedocumented in this encounter Care Teams Telecommunications Network Engineer Relationship Specialty Start Date End Date Stef Hi MD PCP - General Family Practice 01/20/23 documented as of this encounter
--- OUTSIDE RECORDS SUMMARY | 2025-06-20 20:06 | XMS_ITS | Encounter Summary ---
Author Organization [facility] Address [address] [place] [address] Phone Care Team Providers Care Import Clerk Name Role Phone Zonia Rolan Primary Care Provider [phone] Stef Hi MD Primary Care Provider [phone] Encounter Details Date Type Department Care Team (Late st Contact Info) Description 11/01/2019 Telephone [facility] Cardiology [address] [facility] [address] [place] [address] [place] [address] Maurisio Quevedo MD [address] [place] [address] Social History Tobacco Use Types Packs/Day Years Used Date Smoking Tobacco: Former Sex and Gender Information Value Date Recorded Sex Assigned at Not on file 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
--- OUTSIDE RECORDS SUMMARY | 2025-06-20 20:06 | XMS_ITS | Encounter Summary ---
Author Organization [facility] Address [address] [place] [address] Phone Care Team Providers Care Rig Hand Name Role Phone Rolan Brar DO Primary Care Provider [phone] Stef Hi MD Primary Care Provider [phone] Encounter Details Date Type Department Care Team (Latest Contact Info) Description 04/10/2021 Orders Only [facility] Scanning, Provider Social History Tobacco Use Types Packs/Day Years Used Date Smoking Tobacco: Former Sex and Gender Information Value Date Recorded Sex Assigned at Not on file Legal Sex Male 3:33 AM CUSTOMER QUALITY SPECIALIST Gender Identity Not on file Sexual [...] on filedocumented in this encounter Care Teams Rig Hand Relationship Specialty Start Date End Date Rolan Brar DO PCP - General 11/02/17 01/19/23 Stef Hi MD PCP - General Family Practice 01/20/23 documented as of this encounter
--- OUTSIDE RECORDS SUMMARY | 2025-06-20 20:06 | XMS_ITS | Clinical Summary ---
Author Organization [facility] Address [address] [place] [address] Care Team Providers Care Developer Architect Name Role Phone Stef Hi MD Primary Care Provider [phone] Allergies Active Allergy Reactions Criticality Noted Date Comments Gilberto Inhibitors Cough Low lisinopril Hydrocodone Itching Low Reaction: Itching, [place] like spider webs on face Medications atorvastatin (LIPITOR) 40 mg tabletIndication s:hyperlipidemia Take 1 tablet (40 mg total) by mouth every evening 3 8 Active coenzyme Q10 200 mg capsule Take 1 capsule (200 mg total) by mouth every morning Active LORazepam (ATIVAN) 1 mg tablet 1 tab every 4 hours as needed for anxiety 5 Active multivitamin tabletIndication s:Vitamin Deficiency Prevention,takin g 4 times weekly Take 1 tablet by [...] 5 Active timolol (TIMOPTIC) 0.5 % ophthalmic solutionIndicati ons:Glaucoma, residual angle-closure, bilateral INSTILL 1 DROP IN RIGHT EYE EVERY MORNING 5 mL 5 Active apixaban (ELIQUIS) 5 mg tablet Take 1 tablet (5 mg total) by mouth 2 (two) times a day 60 tablet 11 5 Active metoprolol XL (TOPROL-XL) 25 mg extended release tablet Take 0.5 tablets (12.5 mg total) by mouth daily 5 Active tamsulosin (FLOMAX) 0.4 mg extended release capsule 5 Active dutasteride (AVODART) 0.5 mg capsule 5 Active losartan (COZAAR) 25 mg tablet Take 1 tablet (25 mg total) by mouth daily 30 tablet 11 5 Active Active Problems Problem Noted Date Diagnosed Date [...] Monitor Assessment & Plan (07/07/2023 3:26 PM SHEETMETAL WORKER): Excellent vision sc, monitor Assessment & Plan [...] OD Assessment & Plan (07/07/2023 3:26 PM SHEETMETAL WORKER): IOP today generally stable from previous, some flucuation from visit to visit Today 18/16 Baseline cirrus OCT today with polar changes OD, full OS [place] OCT stable from previous DFE at f/u [...] 24-2 Assessment & Plan (07/22/2022 2:21 PM SHEETMETAL WORKER): S/P phaco yolie OD, phaco OS for [...] weeks later. Coronary artery disease invo lving poarch coronary artery of poarch heart without angina pectoris 10/15/2020 Increased body mass index (BMI) 11/26/2016 Benign essential hypertension 12/25/2015 Hyperlipidemia LDL goal <70 12/25/2015 Coronary artery disease invo lving poarch coronary artery of poarch heart with angina pectoris 02/09/2015 Obesity with body mass index 30 or greater 07/26 Cardiomyopathy 07/26/2014 Resolved Problems Problem Noted Date Diagnosed Date Resolved Date Nuclear sclerotic cataract of right eye 12/04/2021 02/19/2022 Overview (12/04/2021): Added automatically from request for surgery [id number] (nuclear sclerosis), left 11/19/2021 01/20/2023 Assessment [...] Encounters Date Type Department Care Team Description 06/19/2025 11:30 AM SHEETMETAL WORKER Office Visit [facility] Medicine Cardiology [address] [address] [place] [address] Stef Batista MD Coronary artery disease of poarch artery of poarch heart with stable angina pectoris (Primary Dx); Dyslipidemia; Primary hypertension; Orthostatic lightheadedness; TIA (transient ischemic attack); Aortic root dilation 06/19/2025 Telephone [facility] [place] [place] Cardiology [address] [place] [address] [place] [address] [place] [address] Stef Batista MD 06/06/2025 Telephone [facility] Medicine Ophthalmology [address] [place] [address] Zeeshan Decker, OD r/s appt; sooner appt 05/09/2025 Orders Only [facility] Medicine Cardiology [address] [place] [address] [place] [address] Stef Batista MD 05/08/2025 Orders Only [facility] Medicine Cardiology [address] [place] [address] [place] [address] Stef Batista MD 05/05/2025 Telephone [facility] [place] [place] Cardiology [facility] [address] [place] [address] [place] [address] Stef Batista MD cardiac clearance/holding eliquis 04/11/2025 Telephone [facility] [place] [place] Ophthalmology [address] [place] [address] Zeeshan Decker, OD No Show from Last 3 Months Surgical History Surgery [...] on file Legal Sex Male 3:33 AM SHEETMETAL WORKER Gender Identity Not on file Sexual Orientation Not on file Last Filed Vital Signs Vital Sign Reading Time Taken Comments Blood Pressure 152/87 06/19/2025 11:27 AM SHEETMETAL WORKER Pulse 68 06/19/2025 11:27 AM SHEETMETAL WORKER Temperature 36.6 C (97.9 F) 06/19/2025 11:27 AM SHEETMETAL WORKER Respiratory Rate 16 03/16/2025 7:26 PM CDT Oxygen Saturation 97% 06/19/2025 11:27 AM SHEETMETAL WORKER Inhaled Oxygen Concentration - - Weight 89.4 kg (197 lb) 06/19/2025 11:27 AM SHEETMETAL WORKER Height 180.3 cm (5' 11) 06/19/2025 11:27 AM SHEETMETAL WORKER Body Mass Index 27.48 06/19/2025 11:27 AM SHEETMETAL WORKER Plan of Treatment Health Maintenance Due Date [...] 07/23/2018, 07/17/2014 Medical Devices Implanted Type Area Commercial Print Salesman Device Identifier Shelf Expiration Date Model / Serial / Lot [employer] Lens Tecnis Eyhance Iol [id number] - [id number] - [id number] Implanted:Qty: 1 on 02/19/2022 by Onur Mcmullen MD at [facility] Lens Left: Eye [employer] 08/15/2024 [id number] / [id number] / 0 [employer] Canvas Lens Iol Posterior Biconvex Optic Single Piece Envista 6.0x12.5 +18.5d Hydrophobic Acrylic [id number] - [id number] - [id number] Implanted:Qty: 1 on 12/18/2021 by Onur Mcmullen MD at [facility] Right: Lens [employer] [id number] 05/28/2024 [id number] / [id number] / Insurance MEDICARE [facility] INSURANCE MEDICARE [facility] INSURANCE Advance Directives For more information, please contact: [phone] Documents on File Type Date Recorded Patient Analytical Data Scientist Expl anation ADVANCE DIRECTIVE 06/30/2024 9:37 AM Power of Life Agent-Medical Care Teams Developer Architect Relationship Specialty Start Date End Date Stef Hi MD PCP - General Family Practice 01/20/23
--- OUTSIDE RECORDS SUMMARY | 2025-06-20 20:06 | XMS_ITS | Encounter Summary ---
Author Organization [facility] Address [address] [place] [address] Phone Care Team Providers Care Soil Expert Name Role Phone Stef Hi MD Primary Care Provider [phone] Encounter Details Date Type Department Care Team (Late st Contact Info) Description 08/18/2023 E-Visit [facility] Medicine Cardiology [address] [facility] [address] [place] [address] Stef Batista MD [address] [facility] [address] [place], [place] [id number] Diclofenac topical Social History Tobacco Use Types [...] on file 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
--- OUTSIDE RECORDS SUMMARY | 2025-06-20 20:06 | XMS_ITS | Encounter Summary ---
Author Organization [facility] Address [address] [place] [address] Phone Care Team Providers Care Powder Room Attendant Name Role Phone Stef Hi MD Primary Care Provider [phone] Encounter Details Date Type Department Care Team (Late st Contact Info) Description 06/19/2025 Telephone [facility] Medicine Cardiology [address] [facility] Advanced Medicine 8th [place] [address] [place] [id number] Stef Batista MD [address] [facility] [address] [place] [address] Social History Tobacco Use Types Packs/Day Years [...] on file 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 Thank you! CULAR BIOLOGY PROFESSOR * Telephone Encounter - Nani Purdy RN - 06/19/2025 12:43 PM MOLECULAR BIOLOGY PROFESSOR Pt needs US Abdominal Aortic Aneurysm Screening, ordered at [facility] today. He wants to have done externally. Will figure out where. CULAR BIOLOGY PROFESSOR documented in this encounter Plan of Treatment Not on file documented as of this encounter Visit Diagnoses Not on filedocumented in this encounter Care Teams Powder Room Attendant Relationship Specialty Start Date End Date Stef Hi MD PCP - General Family Practice 01/20/23 documented as of this encounter
[2025-06-20 20:45] VITALS: BP 156/110; PULSE 71; RESP 16; TEMP 36.7; O2SAT 100
== END 2025-06-20 23:37 | disposition left against medical advice (07) ==
LOC: ANHED 23:22
PROVIDERS: Emergency Provider Emergency Medicine; PCP Family Medicine
DX: R36.9 Urethral discharge, unspecified (principal)
CPT/HCPCS: 99199